=== PATIENT | female | born 1960 | race Caucasian/White ===

== ENCOUNTER 2017-03-25 16:29 | Emergency (ER) | payer OTHER ==
[~2017-03-25] VITALS: Ht 167.6 cm; Wt 83.0 kg
--- OUTSIDE RECORDS SUMMARY | ~2017-03-25 | XMS ---
Demographics + + + | Address | [address] | | | [address] | | | [place] [address] | + + + | Preferred Language | Unknown | + + + | Marital Status | Unknown | + + + | Yazidi Affiliation | Unknown | + + + | Race | Unknown | + + + | Ethnic Group | Unknown | + + + Author + + + | Author | [facility] | + + + | Organization | [facility] | + + + | Address | [address] | | | [place] [address] | + + + | Phone | | + + + Care Team Providers + + + + | Care Accounting Professor Name | Role | Phone | + + + + Unavailable | Unavailable | + + + + PROBLEMS + + + + + + + + | Type | Condition | ICD9-CM | [id number] | Onset | Condition | SNOMED | | | | Code | Code | Dates | Status | Code | + + + + + + + + | Problem | Hypertensi | | I10 | | Active | [id number] | | | on | | | | | | + + + + + + + + | Problem | History of | Z86.39 | | | Active | | | | vitamin D | | | | | | | | | | | | | | | | deficiency | | | | | | + + + + + + + + | Problem | Hot | N95.1 | | | Active | 44904962 | | | flashes | | | | | | | | due to | | | | | | | | menopause | | | | | | + + + + + + + + | Assessment | Weight | | R63.5 | 10 Apr, | Active | 9796812 | | | gain | | | 2017 | | | + + + + + + + + | Assessment | Depression | Z13.89 | | 10 Apr, | Active | [id number] | | | screen | | | 2016 | | | + + + + + + + + | Assessment | Encounter | Z13.9 | | 10 Apr, | Active | 69356350 | | | for | | | 2016 | | | | | screening | | | | | | + + + + + + + + | Problem | Asthma | | J45.909 | | Active | 779591033 | + + + + + + + + | Problem | Unspecifie | J45.909 | | | Active | 31168848 | | | d asthma, | | | | | | | | uncomplica | | | | | | | | genet | | | | | | + + + + + + + + | Problem | Dysuria | | R30.0 | | Active | 72732268 | + + + + + + + + | Problem | History of | Z86.69 | | | Active | | | | | | | | | | | | pseudoseiz | | | | | | | | ure | | | | | | + + + + + + + + | Problem | Fatigue | | R53.83 | | Active | 41052944 | + + + + + + + + | Problem | Hypoglycem | E16.1 | | | Active | 358676 | | | ic | | | | | | | | reaction | | | | | | + + + + + + + + | Problem | Bloating | R14.0 | | | Active | 58668827 | + + + + + + + + ALLERGIES + + + + +--------+ | Substance | Reaction | Event Type | Date | Status | + + + + +--------+ | Amoxicillin | rash | Drug Allergy | Nov, | Active | + + + + +--------+ | Valium | hallucinates | Drug Allergy | Nov, | Active | + + + + +--------+ | Morphine | hallucinates | Drug Allergy | Nov, | Active | | Sulfate | | | | | + + + + +--------+ | Macrobid | shortness of | Drug Allergy | 10 Nov, 2016 | Active | | | breath | | | | + + + + +--------+ SOCIAL HISTORY No smoking Hx information available PLAN OF CARE VITAL SIGNS + + + + | Height | 66.5 in | 2016-11-28 | + + + + | Weight | 191.8 lbs | 2016-11-28 | + + + + | BMI | 30.49 kg/m2 | 2016-11-28 | + + + + | Temperature | 97.7 degrees Fahrenheit | 2016-11-28 | + + + + | Heart Rate | 94 /min | 2016-11-28 | + + + + | Blood pressure systolic | 148 mm Hg | 2016-11-28 | + + + + | Blood pressure diastolic | 84 mm Hg | 2016-11-28 | + + + + MEDICATIONS + + + + + + + +--------+ | Medicati | Instruct | Dosage | Frequenc | Start | End Date | Duration | Status | | on | ions | | y | Date | | | | + + + + + + + +--------+ | Ergocalc | Orally | 1 | | | 9 Vincent, | 60 days | Active | | iferol | Take one | capsule | | | 2016 | | | | [address]30 | pill | | | | | | | | UNIT | every 7 | | | | | | | | | days x 8 | | | | | | | | | weeks | | | | | | | + + + + + + + +--------+ | Lisinopr | Orally | 1 tablet | 24h | | | 90 days | Active | | il 10 MG | Once a | | | | | | | | | day | | | | | | | + + + + + + + +--------+ | Albutero | Inhalati | 2 puffs | 4h | 02 Sep, | | 30 | Active | | l | on every | as | | 2013 | | day(s) | | | Sulfate | 4 hrs | needed | | | | | | | HFA 108 | | for | | | | | | | (90 | | wheezing | | | | | | | Base) | | or | | | | | | | MCG/ACT | | shortnes | | | | | | | | | s of | | | | | | | | | breath | | | | | | + + + + + + + +--------+ RESULTS No Results PROCEDURES + + + + + | Procedure | Date Ordered | Related Diagnosis | Body Site | + + + + + | Est Level III | November 28, 2016 | | | | Intermediate | | | | + + + + + IMMUNIZATIONS No Known Immunizations"
[~2017-03-25 16:29] MED LIST: ACETAMINOPHEN-1 EAC1 PO; ATIVAN1 MG PO; CEFDINIR300 MG PO; CELEXA20 MG PO; CEPHALEXIN500 MG PO; CITALOPRAM HBR10 MG PO; DRISDOL50000 UNIT PO; ESTRADIOL1 EAC8 TD; IBUPROFEN200 M1 PO; IBUPROFEN800 MG PO; LISINOPRIL10 MG PO; MOTRIN IB200 MG PO; NITROFURANTOIN100 M1 PO; NORCO 5-325 TA1 EACH PO; TYLENOL WITH C1 EACH PO; VENTOLIN HFA18 GM INH; ZEBUTAL 50-3251 EACH PO; ZITHROMAX250 MG PO
== END 2017-03-25 16:54 | disposition home or self-care (01) ==
LOC: ED 16:29
DX: Z00.8 Encounter for other general examination (principal)

== ENCOUNTER 2017-05-11 18:39 | Emergency (ER) | payer OTHER ==
[~2017-05-11] VITALS: Ht 167.6 cm; Wt 83.9 kg
--- OUTSIDE RECORDS SUMMARY | ~2017-05-11 | XMS ---
Demographics + + + | Address | [address] | | | [address] | | | [place] [address] | + + + | Preferred Language | Unknown | + + + | Marital Status | Unknown | + + + | Methodist Affiliation | Unknown | + + + | Race | Unknown | + + + | Ethnic Group | Unknown | + + + Author + + + | Author | [facility] | + + + | Organization | [facility] | + + + | Address | [address] | | | [place] [address] | + + + | Phone | | + + + Care Team Providers + + + + | Care Mounter Automatic Name | Role | Phone | + + + + Unavailable | Unavailable | + + + + PROBLEMS +---------+ + + +--------+ + + | Type | Condition | ICD9-CM | [id number] | Onset | Condition | SNOMED | [...] | E16.1 | | | Active | 180543 | | | ic | | | | | | | | reaction | | | | | | +---------+ + + +--------+ + + | Problem | Bloating | R14.0 | | | Active | 75348678 | +---------+ + + +--------+ + + | Problem | STD | Z20.2 | | | Active | 630825957 | | | exposure | | | | | | +---------+ + + +--------+ + + | Problem | Warts, | A63.0 | | | Active | 267151147 | | | genital | | | | | | +---------+ + + +--------+ + + | Problem | Unspecifie | J45.909 | | | Active | 46888409 | | | d asthma, | | | | | | | | uncomplica | | | | | | | | genet | | | | | | +---------+ + + +--------+ + + | Problem | Dysuria | | R30.0 | | Active | 99867075 | +---------+ + + +--------+ + + | Problem | Fall from | W18.30XA | | | Active | | | | ground | | | | | | | | level | | | | | | +---------+ + + +--------+ + + | Problem | Left ankle | | M25.572 | | Active | 846056709 | | | pain | | | | | | +---------+ + + +--------+ + + | Problem | Hypertensi | | I10 | | Active | 48005464 | | | on | | | | | | +---------+ + + +--------+ + + | Problem | Hot | N95.1 | | | Active | 62281919 | | | flashes | | | [...] | | J45.909 | | Active | 886086004 | +---------+ + + +--------+ + + | Problem | Fatigue | | R53.83 | | Active | 43104756 | +---------+ + + +--------+ + + ALLERGIES Unknown Allergies SOCIAL HISTORY No smoking Hx information available PLAN OF CARE VITAL SIGNS MEDICATIONS + + + + + + + +--------+ | Medicati | Instruct | Dosage | Frequenc | Start | End Date | Duration | Status | | on | ions | | y | Date | | | | + + + + + + + +--------+ | Metronid | Orally | 1 tablet | 12h | 15 Mar, | Mar, | 7 days | Active | | azole | Twice a | | | 2016 | 2016 | | | | 500 mg | day | | | | | | | + + + + + + + +--------+ RESULTS No Results PROCEDURES No Known procedures IMMUNIZATIONS No Known Immunizations"
--- OUTSIDE RECORDS SUMMARY | ~2017-05-11 | XMS ---
Demographics + + + | Address | [address] | | | [address] | | | [place] [address] | + + + | Preferred Language | Unknown | + + + | Marital Status | Unknown | + + + | Protestant Affiliation | Unknown | + + + | Race | Unknown | + + + | Ethnic Group | Unknown | + + + Author + + + | Author | [facility] | + + + | Organization | [facility] | + + + | Address | [address] | | | [place] [address] | + + + | Phone | | + + + Care Team Providers + + + + | Care Paster Hat Lining Name | Role | Phone | + + + + Unavailable | Unavailable | + + + + PROBLEMS +---------+ + + +--------+ + + | Type | Condition | ICD9-CM | [id number] | Onset | Condition | SNOMED | [...] | | R53.83 | | Active | 84061465 | +---------+ + + +--------+ + + | Problem | Asthma | | J45.909 | | Active | 154250010 | +---------+ + + +--------+ + + | Problem | Hypertensi | | I10 | | Active | 36305767 | | | on | | | | | | +---------+ + + +--------+ + + | Problem | Hot | N95.1 | | | Active | 98294423 | | | flashes | | | [...] | | M25.572 | | Active | 608220694 | | | pain | | | | | | +---------+ + + +--------+ + + | Problem | Hypoglycem | E16.1 | | | Active | 869219 | | | ic | | | | | | | | reaction | | | | | | +---------+ + + +--------+ + + | Problem | Bloating | R14.0 | | | Active | 80590376 | +---------+ + + +--------+ + + | Problem | Unspecifie | J45.909 | | | Active | 16075777 | | | d asthma, | | | | | | | | uncomplica | | | | | | | | genet | | | | | | +---------+ + + +--------+ + + | Problem | Dysuria | | R30.0 | | Active | 62099768 | +---------+ + + +--------+ + + ALLERGIES + + + + +--------+ | Substance | Reaction | Event Type | Date | Status | + + + + +--------+ | Amoxicillin | rash | Drug Allergy | Mar, | Active | + + + + +--------+ | Valium | hallucinates | Drug Allergy | Mar, | Active | + + + + +--------+ | Morphine | hallucinates | Drug Allergy | Mar, | Active | | Sulfate | | | | | + + + + +--------+ | Macrobid | shortness of | Drug Allergy | Mar, | Active | | | breath | | | | + + + + +--------+ SOCIAL HISTORY No smoking Hx information available PLAN OF CARE + +---------+ | Activity | Details | + +---------+ +---+ | | +---+ + + + | Follow Up | 1 Week, 2 Weeks Reason:null | + + + | Pending Test | XRay Ankle left | + + + VITAL SIGNS + + + + | Height | 66.5 in | 2017-03-25 | + + + + | Weight | 186 lbs | 2017-03-25 | + + + + | BMI | 29.57 kg/m2 | 2017-03-25 | + + + + | Temperature | 97.6 degrees Fahrenheit | 2017-03-25 | + + + + | Heart Rate | 79 /min | 2017-03-25 | + + + + | Blood pressure systolic | 146 mm Hg | 2017-03-25 | + + + + | Blood pressure diastolic | 99 mm Hg | 2017-03-25 | + + + + MEDICATIONS + [...] | on every | as | | 2014 | | day(s) | | | Sulfate [...] + + | Est Level III | Mar 25, 2017 | | | | Intermediate | | | | + + + + + IMMUNIZATIONS No Known Immunizations"
--- OUTSIDE RECORDS SUMMARY | ~2017-05-11 | XMS ---
Demographics + + + | Address | [address] | | | [address] | | | [place] [address] | + + + | Preferred Language | Unknown | + + + | Marital Status | Unknown | + + + | Bahai Affiliation | Unknown | + + + | Race | Unknown | + + + | Ethnic Group | Unknown | + + + Author + + + | Author | [facility] | + + + | Organization | [facility] | + + + | Address | [address] | | | [place] [address] | + + + | Phone | | + + + Care Team Providers + + + + | Care Fuel Cell Test Engineer Name | Role | Phone | + + + + Unavailable | Unavailable | + + + + PROBLEMS +---------+ + + +--------+ + + | Type | Condition | ICD9-CM | YZA30-WR | Onset | Condition | SNOMED | [...] | | R53.83 | | Active | 94282141 | +---------+ + + +--------+ + + | Problem | Asthma | | J45.909 | | Active | 138912617 | +---------+ + + +--------+ + + | Problem | Hypertensi | | I10 | | Active | 91803894 | | | on | | | | | | +---------+ + + +--------+ + + | Problem | Hot | N95.1 | | | Active | 86720882 | | | flashes | | | [...] | | M25.572 | | Active | 004776475 | | | pain | | | | | | +---------+ + + +--------+ + + | Problem | Hypoglycem | E16.1 | | | Active | 425613 | | | ic | | | | | | | | reaction | | | | | | +---------+ + + +--------+ + + | Problem | Bloating | R14.0 | | | Active | 58836845 | +---------+ + + +--------+ + + | Problem | Unspecifie | J45.909 | | | Active | 07603733 | | | d asthma, | | | | | | | | uncomplica | | | | | | | | genet | | | | | | +---------+ + + +--------+ + + | Problem | Dysuria | | R30.0 | | Active | 05172876 | +---------+ + + +--------+ + + [...]
--- OUTSIDE RECORDS SUMMARY | ~2017-05-11 | XMS ---
Demographics + + + | Address | [address] | | | [address] | | | [place] [address] | + + + | Preferred Language [...] + + + | Organization | [facility] | + + + | Address | [address] | | | [place] [address] | + + + | Phone | | + + + Care Team Providers + + + + | Care Aquaculture Program Director Name | Role | Phone | + + + + Unavailable | Unavailable | + + + + PROBLEMS +---------+ + + +--------+ + + | Type | Condition | ICD9-CM | SMI69-[id number] | Onset | Condition | SNOMED | [...] | E16.1 | | | Active | 055661 | | | ic | | | | | | | | reaction | | | | | | +---------+ + + +--------+ + + | Problem | Bloating | R14.0 | | | Active | 69915427 | +---------+ + + +--------+ + + | Problem | STD | Z20.2 | | | Active | 021869734 | | | exposure | | | | | | +---------+ + + +--------+ + + | Problem | Warts, | A63.0 | | | Active | 978806340 | | | genital | | | | | | +---------+ + + +--------+ + + | Problem | Unspecifie | J45.909 | | | Active | 57350563 | | | d asthma, | | | | | | | | uncomplica | | | | | | | | genet | | | | | | +---------+ + + +--------+ + + | Problem | Dysuria | | R30.0 | | Active | 22220701 | +---------+ + + +--------+ + + | Problem | Fall from | W18.30XA | | | Active | | | | ground | | | | | | | | level | | | | | | +---------+ + + +--------+ + + | Problem | Left ankle | | M25.572 | | Active | 960547411 | | | pain | | | | | | +---------+ + + +--------+ + + | Problem | Hypertensi | | I10 | | Active | 84316081 | | | on | | | | | | +---------+ + + +--------+ + + | Problem | Hot | N95.1 | | | Active | 11817232 | | | flashes | | | [...] | | J45.909 | | Active | 488537718 | +---------+ + + +--------+ + + | Problem | Fatigue | | R53.83 | | Active | 87096058 | +---------+ + + +--------+ + + [...] + + + | Follow Up | 2 Weeks Reason:null | + + + | Pending Test | HSV Culture and Typing | + + + | Pending Test | Aerobe ID + Suscept | + + + | Pending Test | HPV, DNA | + + + | Pending Test | AFFIRM DNA Panel | + + + VITAL SIGNS + + + + | Height | 66.5 in | 2017-04-03 | + + + + | Weight | 187.2 lbs | 2017-04-03 | + + + + | BMI | 29.76 kg/m2 | 2017-04-03 | + + + + | Temperature | 97.1 degrees Fahrenheit | 2017-04-03 | + + + + | Heart Rate | 99 /min | 2017-04-03 | + + + + | Blood pressure systolic | 153 mm Hg | 2017-04-03 | + + + + | Blood pressure diastolic | 97 mm Hg | 2017-04-03 | + + + + MEDICATIONS + + + + + + + +--------+ | Medicati | Instruct | Dosage | Frequenc | Start | End Date | Duration | Status | | on | ions | | y | Date | | | | + + + + + + + +--------+ | Podofilo | External | 1 | | Mar, | 17 Mar, | 3 days | Active | | x 0.5 % | ly Twice | applicat | | 2016 | 2016 | | | | | a day x | ion to | | | | | | | | 3 days, | affected | | | | | | | | wait 4 | area | | | | | | | | days | | | | | | | | | repeat | | | | | | | | | as | | | | | | | | | needed. | | | | | | | [...] | | | | MCG/ACT | | domo | | | | | | | [...] + + + + | Est Level IV | Apr 03, 2017 | | | | Extended | | | | + + + + + IMMUNIZATIONS No Known Immunizations"
--- OUTSIDE RECORDS SUMMARY | ~2017-05-11 | XMS ---
Demographics + + + | Address | [address] | | | [address] | | | [place] [address] | + + + | Preferred Language | Unknown | + + + | Marital Status | Unknown | + + + | Roman Catholic Affiliation | Unknown | + + + | Race | Unknown | + + + | Ethnic Group | Unknown | + + + Author + + + | Author | [facility] | + + + | Organization | [facility] | + + + | Address | [address] | | | [place] [address] | + + + | Phone | | + + + Care Team Providers + + + + | Care Director Student Union Name | Role | Phone | + + + + Unavailable | Unavailable | + + + + PROBLEMS +---------+ + + +--------+ + + | Type | Condition | ICD9-CM | QBV74-IC | Onset | Condition | SNOMED | | | | Code | Code | Dates | Status | Code | +---------+ + + +--------+ + + | Problem | Fatigue | | R53.83 | | Active | 44955590 | +---------+ + + +--------+ + + | Problem | Bloating | R14.0 | | | Active | 22095556 | +---------+ + + +--------+ + + | Problem | History of | Z86.69 | | | Active | | | | | | | | | | | | pseudoseiz | | | | | | | | ure | | | | | | +---------+ + + +--------+ + + | Problem | Asthma | | J45.909 | | Active | 071003960 | +---------+ + + +--------+ + + | Problem | Hypertensi | | I10 | | Active | 31545343 | | | on | | | | | | +---------+ + + +--------+ + + | Problem | Hot | N95.1 | | | Active | 91239384 | | | flashes | | | [...] | | M25.572 | | Active | 679983030 | | | pain | | | | | | +---------+ + + +--------+ + + | Problem | Dysuria | | R30.0 | | Active | 49874269 | +---------+ + + +--------+ + + | Problem | Hypoglycem | E16.1 | | | Active | 482368 | | | ic | | | | | | | | reaction | | | | | | +---------+ + + +--------+ + + | Problem | Left ankle | S99.912A | | | Active | | | | injury | | | | | | +---------+ + + +--------+ + + | Problem | Unspecifie | J45.909 | | | Active | 25004067 | | | d asthma, | | | | | | | | uncomplica | | | | | | | | geent | | | | | | +---------+ [...] 2 Weeks Reason:null | + + + VITAL SIGNS + [...] Reference Range | + +--------+------+ + | XRay Ankle left | | | | + +--------+------+ + PROCEDURES + + + + + | Procedure | Date Ordered | Related Diagnosis | Body Site | + + + + + | Est Level III | Mar 25, 2017 | | | | Intermediate | | | | + + + + + IMMUNIZATIONS No Known Immunizations"
--- OUTSIDE RECORDS SUMMARY | ~2017-05-11 | XMS ---
Demographics + + + | Address | [address] | | | [address] | | | [place] [address] | + + + | Preferred Language | Unknown | + + + | Marital Status | Unknown | + + + | Rastafari Affiliation | Unknown | + + + | Race | Unknown | + + + | Ethnic Group | Unknown | + + + Author + + + | Author | [facility] | + + + | Organization | [facility] | + + + | Address | [address] | | | [place] [address] | + + + | Phone | | + + + Care Team Providers + + + + | Care Hospital Chaplain Name | Role | Phone | + + + + Unavailable | Unavailable | + + + + PROBLEMS +---------+ + + +--------+ + + | Type | Condition | ICD9-CM | COQ83-[id number] | Onset | Condition | SNOMED | | | | Code | Code | Dates | Status | Code | +---------+ + + +--------+ + + | Problem | Fatigue | | R53.83 | | Active | 97874693 | +---------+ + + +--------+ + + | Problem | Bloating | R14.0 | | | Active | 64780400 | +---------+ + + +--------+ + + | Problem | History of | Z86.69 | | | Active | | | | | | | | | | | | pseudoseiz | | | | | | | | ure | | | | | | +---------+ + + +--------+ + + | Problem | Asthma | | J45.909 | | Active | 925575402 | +---------+ + + +--------+ + + | Problem | Hypertensi | | I10 | | Active | 72952635 | | | on | | | | | | +---------+ + + +--------+ + + | Problem | Hot | N95.1 | | | Active | 79154902 | | | flashes | | | [...] | | M25.572 | | Active | 160736204 | | | pain | | | | | | +---------+ + + +--------+ + + | Problem | Dysuria | | R30.0 | | Active | 53875323 | +---------+ + + +--------+ + + | Problem | Hypoglycem | E16.1 | | | Active | 425280 | | | ic | | | [...] | J45.909 | | | Active | 01773603 | | | d asthma, | | [...] | 2 puffs | 4h | 02 Apr, | | 30 | Active | | [...]
--- OUTSIDE RECORDS SUMMARY | ~2017-05-11 | XMS ---
Demographics + + + | Address | [address] | | | [address] | | | [place] [address] | + + + | Preferred Language | Unknown | + + + | Marital Status | Unknown | + + + | Church Affiliation | Unknown | + + + | Race | Unknown | + + + | Ethnic Group | Unknown | + + + Author + + + | Author | [facility] | + + + | Organization | [facility] | + + + | Address | [address] | | | [place] [address] | + + + | Phone | | + + + Care Team Providers + + + + | Care Office Equipment Technician Name | Role | Phone | + + + + Unavailable | Unavailable | + + + + PROBLEMS +---------+ + + +--------+ + + | Type | Condition | ICD9-CM | NEH00-OQ | Onset | Condition | SNOMED | [...] | E16.1 | | | Active | 708751 | | | ic | | | | | | | | reaction | | | | | | +---------+ + + +--------+ + + | Problem | Bloating | R14.0 | | | Active | 01660977 | +---------+ + + +--------+ + + | Problem | STD | Z20.2 | | | Active | 900000628 | | | exposure | | | | | | +---------+ + + +--------+ + + | Problem | Warts, | A63.0 | | | Active | 605115010 | | | genital | | | | | | +---------+ + + +--------+ + + | Problem | Unspecifie | J45.909 | | | Active | 96207285 | | | d asthma, | | | | | | | | uncomplica | | | | | | | | genet | | | | | | +---------+ + + +--------+ + + | Problem | Dysuria | | R30.0 | | Active | 53958080 | +---------+ + + +--------+ + + | Problem | Fall from | W18.30XA | | | Active | | | | ground | | | | | | | | level | | | | | | +---------+ + + +--------+ + + | Problem | Left ankle | | M25.572 | | Active | 182289033 | | | pain | | | | | | +---------+ + + +--------+ + + | Problem | Hypertensi | | I10 | | Active | 69951468 | | | on | | | | | | +---------+ + + +--------+ + + | Problem | Hot | N95.1 | | | Active | 17735558 | | | flashes | | | [...] | | J45.909 | | Active | 543193141 | +---------+ + + +--------+ + + | Problem | Fatigue | | R53.83 | | Active | 72019112 | +---------+ + + +--------+ + + ALLERGIES Unknown Allergies SOCIAL HISTORY No smoking Hx information available PLAN OF CARE VITAL SIGNS MEDICATIONS Unknown Medications RESULTS No Results PROCEDURES No Known procedures IMMUNIZATIONS No Known Immunizations"
--- OUTSIDE RECORDS SUMMARY | ~2017-05-11 | XMS ---
Demographics + + + | Address | [address] | | | [address] | | | [place] [address] | + + + | Preferred Language | Unknown | + + + | Marital Status | Unknown | + + + | Zoroastrianism Affiliation | Unknown | + + + | Race | Unknown | + + + | Ethnic Group | Unknown | + + + Author + + + | Author | [facility] | + + + | Organization | [facility] | + + + | Address | [address] | | | [place] [address] | + + + | Phone | [phone] | + + + Care Team Providers + + + + | Care Health And Wellness Coordinator Name | Role | Phone | + + + + Unavailable | Unavailable | + + + + PROBLEMS +---------+ + + +--------+ + + | Type | Condition | ICD9-CM | SNR70-KD | Onset | Condition | SNOMED | [...] | E16.1 | | | Active | 454333 | | | ic | | | | | | | | reaction | | | | | | +---------+ + + +--------+ + + | Problem | Bloating | R14.0 | | | Active | 47235276 | +---------+ + + +--------+ + + | Problem | Epidermoid | L72.0 | | | Active | 594387467 | | | cyst | | | | | | +---------+ + + +--------+ + + | Problem | STD | Z20.2 | | | Active | 003067805 | | | exposure | | | | | | +---------+ + + +--------+ + + | Problem | Unspecifie | J45.909 | | | Active | 57701765 | | | d asthma, | | | | | | | | uncomplica | | | | | | | | genet | | | | | | +---------+ + + +--------+ + + | Problem | Dysuria | | R30.0 | | Active | 51671402 | +---------+ + + +--------+ + + | Problem | Fall from | W18.30XA | | | Active | | | | ground | | | | | | | | level | | | | | | +---------+ + + +--------+ + + | Problem | Left ankle | | M25.572 | | Active | 959713732 | | | pain | | | | | | +---------+ + + +--------+ + + | Problem | Hypertensi | | I10 | | Active | 46922330 | | | on | | | | | | +---------+ + + +--------+ + + | Problem | Hot | N95.1 | | | Active | 40117987 | | | flashes | | | [...] | | J45.909 | | Active | 708005579 | +---------+ + + +--------+ + + | Problem | Fatigue | | R53.83 | | Active | 81179378 | +---------+ + + +--------+ + + ALLERGIES + + + + +--------+ | Substance | Reaction | Event Type | Date | Status | + + + + +--------+ | Iodine | dizziness | Drug Allergy | Mar, | Active [...] + + + | Follow Up | prn Reason:null | + + + VITAL SIGNS + + + + | Height | 66.5 in | 2017-04-13 | + + + + | Weight | 188.0 lbs | 2017-04-13 | + + + + | BMI | 29.89 kg/m2 | 2017-04-13 | + + + + | Heart Rate | 82 /min | 2017-04-13 | + + + + | Blood pressure systolic | 179 mm Hg | 2017-04-13 | + + + + | Blood pressure diastolic | 94 mm Hg | 2017-04-13 | + + + + MEDICATIONS + [...] + + | Est Level III | Apr 13, 2017 | | | | Intermediate | | | | + + + + + | [facility] MED/CURRENT | Apr 13, 2017 | | | | MED MERGE | | | | + + + + + | DOC MEDS VERIFIED | Apr 13, 2017 | | | | W/PT OR RE | | | | + + + + + IMMUNIZATIONS No Known Immunizations"
== END 2017-05-11 20:11 | disposition home or self-care (01) ==
LOC: ED 18:39
DX: G40.909 Epilepsy, unspecified, not intractable, without status epilepticus (principal); J20.9 Acute bronchitis, unspecified; J45.909 Unspecified asthma, uncomplicated; I10 Essential (primary) hypertension; Z88.0 Allergy status to penicillin; Z88.8 Allergy status to other drugs, medicaments and biological substances; Z88.5 Allergy status to narcotic agent; Z79.899 Other long term (current) drug therapy
CPT/HCPCS: 71020; 99283

== ENCOUNTER → 2017-06-09 | Emergency (ER) | payer OTHER ==
[~2017-06-09] VITALS: Ht 167.6 cm; Wt 83.9 kg
[~2017-06-09] MED LIST changes: +ZOFRAN ODT4 MG PO
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
== END ==
LOC: ED 18:53
DX: G40.109 Localization-related (focal) (partial) symptomatic epilepsy and epileptic syndromes with simple partial seizures, not intractable, without status epilepticus (principal); J45.909 Unspecified asthma, uncomplicated; I10 Essential (primary) hypertension; Z88.0 Allergy status to penicillin; Z88.5 Allergy status to narcotic agent; Z88.8 Allergy status to other drugs, medicaments and biological substances; Z98.890 Other specified postprocedural states; Z79.899 Other long term (current) drug therapy
CPT/HCPCS: 80053; 99283

== ENCOUNTER 2017-06-24 15:25 | Emergency (ER) | payer OTHER ==
[~2017-06-24] VITALS: Ht 167.6 cm; Wt 82.5 kg
[~2017-06-24 15:25] MED LIST changes: -ZOFRAN ODT4 MG PO
[2017-06-24] MEDS ORDERED: ZITHROMAX250 MG PO (16:49)
== END 2017-06-24 16:59 | disposition home or self-care (01) ==
LOC: ED 15:25
DX: J32.9 Chronic sinusitis, unspecified (principal); J45.909 Unspecified asthma, uncomplicated; I10 Essential (primary) hypertension; Z88.0 Allergy status to penicillin; Z88.1 Allergy status to other antibiotic agents; Z88.5 Allergy status to narcotic agent; Z88.8 Allergy status to other drugs, medicaments and biological substances; Z79.899 Other long term (current) drug therapy
CPT/HCPCS: 99283

== ENCOUNTER 2017-08-18 16:15 | Emergency (ER) | payer OTHER ==
[~2017-08-18] VITALS: Ht 167.6 cm; Wt 82.5 kg
--- OUTSIDE RECORDS SUMMARY | 2017-08-18 16:19 | XMS | Clinical Summary ---
Demographics + + + | Address | [address] | | | [place] [address] | + + + | Home Phone | | + + + | Preferred Language | Unknown | + + + | Marital Status | Unknown | + + + | Confucianism Affiliation | Unknown | + + + | Race | Unknown | + + + | Ethnic Group | Unknown | + + + Author + + + | Author | [facility] | + + + | Organization | [facility] | + + + | Address | Unknown | + + + | Phone | Unavailable | + + + Care Team Providers + +------+ + | Care Motor Coach Supervisor Name | Role | Phone | + +------+ + PP | Unavailable | + +------+ + Source Comments ALEXANDRA is fully live on both [facility] Ambulatory and [facility] InPatient.[facility] Allergies Not on File Current Medications Not on file Active Problems Not on file Social History + +-------+ +--------+------+ | Tobacco Use | Types | Packs/Day | Years | Date | | | | | Used | | + +-------+ +--------+------+ | Never Assessed | | | | | + +-------+ +--------+------+ + + + | Sex Assigned at | Date Recorded | | | | + + + | Not on file | | + + + Plan of Treatment + + + + + | Health Maintenance | Due Date | Last Done | Comments | + + + + + | INFLUENZA VACCINE | | | | | (FLU SHOT) | 7 | | | + + + + + Results Not on filefrom Last 3 Months"
--- OUTSIDE RECORDS SUMMARY | 2017-08-18 16:19 | XMS | Clinical Summary ---
Demographics + + + | Address | [address] | | | [place] [address] | + + + | Home Phone | | + + + | Preferred Language | Unknown | + + + | Marital Status | Unknown | + + + | Mandaeism Affiliation | Unknown | + + + [...] Team Providers + +------+ + | Care Can Maker Name | Role | Phone | + +------+ + PP | Unavailable | + +------+ + Source Comments ALEXANDRA is fully live on both [facility] Ambulatory and [facility] InPatient.[facility] Allergies Not on File Current [...]
[2017-08-18] MEDS ORDERED: ZOFRAN ODT4 MG PO (18:22)
== END 2017-08-18 18:56 | disposition home or self-care (01) ==
LOC: ED 16:15
DX: J11.1 Influenza due to unidentified influenza virus with other respiratory manifestations (principal); J45.909 Unspecified asthma, uncomplicated; I10 Essential (primary) hypertension; Z88.0 Allergy status to penicillin; Z88.1 Allergy status to other antibiotic agents; Z88.5 Allergy status to narcotic agent; Z88.8 Allergy status to other drugs, medicaments and biological substances; Z79.899 Other long term (current) drug therapy
CPT/HCPCS: 36415; 71020; 80053; 85025; 87502; 94640; 96360; 99283; J7030

== ENCOUNTER 2017-08-19 20:04 | Emergency (ER) | payer OTHER ==
[~2017-08-19] VITALS: Ht 167.6 cm; Wt 82.5 kg
[~2017-08-19 20:04] MED LIST changes: +ZOFRAN ODT4 MG PO
--- OUTSIDE RECORDS SUMMARY | 2017-08-19 22:32 | XMS | Clinical Summary ---
Demographics + + + | Address | [address] | | | [place] [address] | + + + | Home Phone | | + + + | Preferred Language | Unknown | + + + | Marital Status | Unknown | + + + | Sikhism Affiliation | Unknown | + + + [...] Team Providers + +------+ + | Care Oil Derrick Operator Name | Role | Phone | + +------+ + PP | Unavailable | + +------+ + Source Comments ALEXANDRA is fully live on both [facility] Ambulatory and [facility] InPatient.[facility] Allergies Not on File Current Medications Not [...]
--- NOTE | 2017-08-20 06:44 | EKG ---
[facility] [address] [place] [place] [address] Signed Normal sinus rhythm Cannot rule out Anterior infarct (cited on or before 12-SEP-2016) Abnormal ECG When compared with ECG of 12-SEP-2016 16:01, Questionable change in initial forces of Anterior leads Confirmed by DOROTHY BLACK MD ([id number]) on 08/20/2017 6:44:17 AM Electronically Signed By: DOROTHY BLACK MD 08/20/17 0644 PATIENT NAME: FANG COLÓN Electrocardiogram DATE OF : 62 PHYSICIAN: DOROTHY BLACK MD REPORT #: [id number] REPORT IS CONFIDENTIAL AND NOT TO BE RELEASED WITHOUT AUTHORIZATION
== END 2017-08-19 23:45 | disposition home or self-care (01) ==
LOC: ED 20:04
DX: J10.1 Influenza due to other identified influenza virus with other respiratory manifestations (principal); J45.909 Unspecified asthma, uncomplicated; I10 Essential (primary) hypertension; Z88.0 Allergy status to penicillin; Z88.8 Allergy status to other drugs, medicaments and biological substances; Z88.1 Allergy status to other antibiotic agents; Z79.899 Other long term (current) drug therapy; Z88.5 Allergy status to narcotic agent
CPT/HCPCS: 80053; 84484; 85025; 93005; 93010; 96360; 99283; J7030

== ENCOUNTER 2017-11-26 14:41 | Emergency (ER) | payer OTHER ==
[~2017-11-26] VITALS: Ht 167.6 cm; Wt 82.5 kg
--- OUTSIDE RECORDS SUMMARY | ~2017-11-26 | XMS | Clinical Summary ---
Demographics + + + | Address | [address] | | | [address] | | | [place] [address] | + + + | Home Phone | | + + + | Preferred Language | Unknown | + + + | Marital Status | Single | + + + | Lutheran Affiliation | 1038 | + + + | Race | Unknown | + + + | Ethnic Group | Unknown | + + + Author + + + | Author | [facility] | | | and [place] | + + + | Organization | [facility] | | | and [place] | + + + | Address | Unknown | + + + | Phone | Unavailable | + + + Support + + +---------+ + | Name | Relationship | Address | Phone | + + +---------+ + | Ashkan Ziegler ECON | Unknown | | + + +---------+ + Care Team Providers + +------+ + | Care Arcade Games Mechanic Name | Role | Phone | + +------+ + PP | Unavailable | + +------+ + Allergies + + + +--------+ + | Active Allergy | Reactions | Severity | Noted | Comments | | | | | Date | | + + + +--------+ + | Morphine | | | | | + + + +--------+ + | Penicillins | | | | | + + + +--------+ + Current Medications + + +-------+---------+------+------+-------+ | Prescription | Sig. | Disp. | Refills | Star | End | Statu | | | | | | t | Date | s | | | | | | Date | | | + + +-------+---------+------+------+-------+ | gabapentin | Build up to 2 caps | | | 04/2 | | Activ | | (NEURONTIN) 100 mg | by mouth two times | | | 8/20 | | e | | capsule | daily | | | 11 | | | + + +-------+---------+------+------+-------+ | acetaminophen | as directed | | | 04/2 | | Activ | | (ACETAMINOPHEN EXTRA | | | | 8/20 | | e | | STRENGTH) 500 mg | | | | 11 | | | | tablet | | | | | | | + + +-------+---------+------+------+-------+ | ranitidine | Take 150 mg by mouth | | | 04/2 | | Activ | | (ZANTAC) 150 mg | 3 times daily. 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 | | + + + + + | Overview: ICD-10 Record update | + + Social History + +-------+ +--------+------+ | Tobacco [...] on file | | + + + Last Filed Vital Signs + + + + | Vital Sign | Reading | Time Taken | + + + + | Blood Pressure | 126/86 | 12/16/2010 0000 PDT | + + + + | Pulse | - | - | + + + + | Temperature | - | - | + + + + | Respiratory Rate | - | - | + + + + | Oxygen Saturation | - | - | + + + + | Inhaled Oxygen | - | - | | Concentration | | | + + + + | Weight | 83.9 kg (185 lb) | 12/16/2010 0000 PDT | + + + + | Height | 152.4 cm (5') | 07/22/2010 0000 PST | + + + + | Body Mass Index | 36.13 | 12/16/2010 0000 PDT | + + + + Plan of Treatment + + + + + | Health Maintenance | Due Date | Last Done | Comments | + + + + + | Hepatitis C | | | | | Screening | 1 | | | + + + + + | Vaccine: | | | | | Dtap/Tdap/Td (1 - | 0 | | | | Tdap) | | | | + + + + + | CERVICAL CANCER | | 08/21/2006 | | | SCREENING (PAP EVERY | 0 | | | | 3 YEARS 21-64 ) | | | | + + + + + | BREAST CANCER | | | | | SCREENING (MAMM Q2 | 1 | | | | YEARS 50-74) | | | | + + + + + | COLON CANCER | | | | | SCREENING | 1 | | | | (COLONOSCOPY EVERY | | | | | 10 YEARS 50-75) | | | | + + + + + | Vaccine: Influenza | | | | | (Season Ended) | 8 | | | + + + + + Results Not on filefrom Last 3 Months"
--- OUTSIDE RECORDS SUMMARY | ~2017-11-26 | XMS | Clinical Summary ---
Demographics + + + | Address | [address] | | | [place] [address] | + + + | Home Phone | | + + + | Preferred Language | Unknown | + + + | Marital Status | Unknown | + + + | Uatsdin Affiliation | Unknown | + + + [...] Team Providers + +------+ + | Care Dental Lab Technician Name | Role | Phone | + +------+ + PP | Unavailable | + +------+ + Source Comments ALEXANDRA is fully live on both [facility] Ambulatory and [facility] InPatient.[facility] Allergies Not on File Current [...]
--- OUTSIDE RECORDS SUMMARY | ~2017-11-26 | XMS | Clinical Summary ---
Demographics + + + | Address | [address] | | | [place] [address] | + + + | Home Phone | | + + + | Preferred Language | Unknown | + + + | Marital Status | | + + + | Catholic Affiliation | 1013 | + + + | Race | Unknown | + + + | Ethnic Group | Unknown | + + + Author + + + | Author | [facility] | + + + | Organization | [facility] | + + + | Address | Unknown | + + + | Phone | Unavailable | + + + Support + + +---------+ + | Name | Relationship | Address | Phone | + + +---------+ + | Gregory Boyer | ECON | Unknown | | + + +---------+ + Care Team Providers + +------+ + | Care Php Lamp Developer Name | Role | Phone | + [...] | | | | Screening (Pap) | 2 [...] +------+-------+ + | MEDICAID | [place] | xxxxxxxx | | | [address] | | | [place] | | | | [place] | | | [place] | | | | [address] | | | [employer] | | | | | + +--------+ [...] Self | [birth year] Home: | [address] | | | al/Fam | | 1960 | [phone] | [address] [place] | | | [address] | | | [phone] | [phone] | + +--------+ +--------+ + +
--- OUTSIDE RECORDS SUMMARY | ~2017-11-26 | XMS ---
Demographics + + + | Address | [address] | | | [address] | | | [place] [address] | + + + | Preferred Language | Unknown | + + + | Marital Status | Unknown | + + + | Congregation Affiliation | Unknown | + + + | Race | Unknown | + + + | Ethnic Group | Unknown | + + + Author + + + | Author | [facility] | + + + | Organization | [facility] | + + + | Address | [address] | | | [place] [address] | + + + | Phone | | + + + Care Team Providers + + + + | Care Needle Punch Operator Name | Role | Phone | + + + + Unavailable | Unavailable | + + + + PROBLEMS + + + + + + + + | Type | Condition | ICD9-CM | [id number] | Onset | Condition | SNOMED | | | | Code | Code | Dates | Status | Code | + + + + + + + + | Assessment | History of | Z86.69 | | 05 Apr, | Active | | | | | | | 2017 | | | | | pseudoseiz | | | | | | | | ure | | | | | | + + + + + + + + | Problem | Hypertensi | | I10 | | Active | [id number] | | | on | | | | | | + + + + + + + + | Problem | Asthma | | J45.909 | | Active | 419270963 | + + + + + + + + | Problem | Dysuria | | R30.0 | | Active | 54453793 | + + + + + + + + | Problem | Bloating | R14.0 | | | Active | 36345461 | + + + + + + [...] | N95.1 | | | Active | 94420450 | | | flashes | | | [...] | | R53.83 | | Active | 24481751 | + + + + + + [...] | shortness of | Drug Allergy | Nov, | Active | | | breath | | | | + + + + +--------+ SOCIAL HISTORY No smoking Hx information available PLAN OF CARE VITAL SIGNS + + + + | Height | 66.5 in | 2016-11-23 | + + + + | Weight | 188.2 lbs | 2016-11-23 | + + + + | BMI | 29.92 kg/m2 | 2016-11-23 | + + + + | Temperature | 98.4 degrees Fahrenheit | 2016-11-23 | + + + + | Heart Rate | 85 /min | 2016-11-23 | + + + + | Blood pressure systolic | 143 mm Hg | 2016-11-23 | + + + + | Blood pressure diastolic | 91 mm Hg | 2016-11-23 | + + + + MEDICATIONS + [...] + + + + + +--------+ RESULTS + +--------+------+ + | Name | Result | Date | Reference Range | + +--------+------+ + | Urinalysis, Dip | | | | | (IH) | | | | + +--------+------+ + | Specific [place] | 1.020 | | | + +--------+------+ + | pH | 5 | | | + +--------+------+ + | Leukocytes | neg | | | + +--------+------+ + | Nitrite, Urine | neg | | | + +--------+------+ + | Protein | neg | | | + +--------+------+ + | Glucose | norm | | | + +--------+------+ + | Ketones | neg | | | + +--------+------+ + | Urobilingen, | norm | | | | Semi-Qn | | | | + +--------+------+ + | Bilirubin | neg | | | + +--------+------+ + | Blood Hemoglobin | 50 | | | | (BLD) | | | | + +--------+------+ + PROCEDURES + + + + + | Procedure | Date Ordered | Related Diagnosis | Body Site | + + + + + | LAB URINALYSIS (DIP | November 23, 2016 | | | | STICK ONLY | | | | + + + + + | Est Level III | November 23, 2016 | | | | Intermediate | | | | + + + + + IMMUNIZATIONS No Known Immunizations"
--- OUTSIDE RECORDS SUMMARY | ~2017-11-26 | XMS | Clinical Summary ---
Demographics + + + | Address | [address] | | | [address] | | | [place] [address] | + + + | Home Phone | | + + + | Preferred Language | Unknown | + + + | Marital Status | Single | + + + | Temple Affiliation | 1038 | + + + | Race | Unknown | + + + | Ethnic Group | Unknown | + + + Author + + + | Author | [facility] | | | and [place] | + + + | Organization | [facility] | | | and [place] [...] Team Providers + +------+ + | Care Label Machine Operator Name | Role | Phone | [...] + + + + | Overview: RENETTAU [id number] Decision | + + + + + [...]
--- OUTSIDE RECORDS SUMMARY | ~2017-11-26 | XMS | Clinical Summary ---
Demographics + + + | Address | [address] | | | [place] [address] | + + + | Home Phone | | + + + | Preferred Language | Unknown | + + + | Marital Status | | + + + | Cheondoism Affiliation | 1013 | + + + | Race | Unknown | + + + | Ethnic Group | Unknown | + + + Author + + + | Author | [facility] | + + + | Organization | [facility] | + + + | Address | Unknown | + + + | Phone | Unavailable | + + + Support + + +---------+ + | Name | Relationship | Address | Phone | + + +---------+ + | Gregory Boyer | ECON | Unknown | | + + +---------+ + Care Team Providers + +------+ + | Care Sanitor Name | Role | Phone | + [...] | | [place] | | | | [address] | | | GENERAL MAINTENANCE TECHNICIAN | | | | | + +--------+ [...] Self | [birth year] | Home: | [address] | | | al/Fam | | 1960 | [phone] | [address] [place] | | | [address] | | | [phone] | [phone] | + +--------+ +--------+ + +
--- OUTSIDE RECORDS SUMMARY | ~2017-11-26 | XMS ---
Demographics + + + | Address | [address] | | | [address] | | | [place] [address] | + + + | Preferred Language | Unknown | + + + | Marital Status | Unknown | + + + | Mormon Affiliation | Unknown | + + + | Race | Unknown | + + + | Ethnic Group | Unknown | + + + Author + + + | Author | [facility] | + + + | Organization | [facility] | + + + | Address | [address] | | | [place] [address] | + + + | Phone | | + + + Care Team Providers + + + + | Care Gas Turbine Powerplant Mechanic Name | Role | Phone | + + + + Unavailable | Unavailable | + + + + PROBLEMS +---------+ + + +--------+ + + | Type | Condition | ICD9-CM | [id number] | Onset | Condition | SNOMED | | | | Code | Code | Dates | Status | Code | +---------+ + + +--------+ + + | Problem | Asthma | | J45.909 | | Active | [id number] | +---------+ + + +--------+ + + | Problem | Hot | N95.1 | | | Active | 66481708 | | | flashes | | | | | | | | due to | | | | | | | | menopause | | | | | | +---------+ + + +--------+ + + | Problem | Hypertensi | | I10 | | Active | 18433742 | | | on | | | | | | +---------+ + + +--------+ + + | Problem | Unspecifie | J45.909 | | | Active | 44638619 | | | d asthma, | | | | | | | | uncomplica | | | | | | | | genet | | | | | | +---------+ + + +--------+ + + | Problem | Dysuria | | R30.0 | | Active | 95416213 | +---------+ + + +--------+ + + | Problem | Fatigue | | R53.83 | | Active | 35512531 | +---------+ + + +--------+ + + [...] | R14.0 | | | Active | 36796008 | +---------+ + + +--------+ + + [...]
--- OUTSIDE RECORDS SUMMARY | ~2017-11-26 | XMS ---
Demographics + + + | Address | [address] | | | [address] | | | [place] [address] | + + + | Preferred Language | Unknown | + + + | Marital Status | Unknown | + + + | Christian Affiliation | Unknown | + + + | Race | Unknown | + + + | Ethnic Group | Unknown | + + + Author + + + | Author | [facility] | + + + | Organization | [facility] | + + + | Address | [address] | | | [place] [address] | + + + | Phone | | + + + Care Team Providers + + + + | Care University Lecturer Name | Role | Phone | + + + + Unavailable | Unavailable | + + + + PROBLEMS +---------+ + + +--------+ + + | Type | Condition | ICD9-CM | [id number] | Onset | Condition | SNOMED | | | | Code | Code | Dates | Status | Code | +---------+ + + +--------+ + + | Problem | Asthma | | J45.909 | | Active | 219583331 | +---------+ + + +--------+ + + | Problem | Hot | N95.1 | | | Active | 09542006 | | | flashes | | | | | | | | due to | | | | | | | | menopause | | | | | | +---------+ + + +--------+ + + | Problem | Hypertensi | | I10 | | Active | 65329597 | | | on | | | | | | +---------+ + + +--------+ + + | Problem | Unspecifie | J45.909 | | | Active | 00889765 | | | d asthma, | | | | | | | | uncomplica | | | | | | | | genet | | | | | | +---------+ + + +--------+ + + | Problem | Dysuria | | R30.0 | | Active | 60147422 | +---------+ + + +--------+ + + | Problem | Fatigue | | R53.83 | | Active | 23697868 | +---------+ + + +--------+ + + [...] | R14.0 | | | Active | 79485538 | +---------+ + + +--------+ + + [...] | | +---+ + + + | Pending Test | TSH | + + + | Pending Test | Comp. Metabolic Panel (14) | + + + | Pending Test | Lipid Panel | + + + | Pending Test | Hemoglobin A1C Panel | + + + | Pending Test | Urinalysis | + + + | Pending Test | cbc | + + + | Pending Test | Vitamin D | + + + | | ,Reason: | + + + VITAL SIGNS MEDICATIONS Unknown Medications RESULTS No Results PROCEDURES No Known procedures IMMUNIZATIONS No Known Immunizations"
--- OUTSIDE RECORDS SUMMARY | ~2017-11-26 | XMS | Clinical Summary ---
Demographics + + + | Address | [address] | | | [place] [address] | + + + | Home Phone [...] Team Providers + +------+ + | Care Grants And Contracts Assistant Name | Role | Phone | + +------+ + PP | Unavailable | + +------+ + Source Comments ALEXANDRA is fully live on both [facility] Ambulatory and [facility] InPatient.[facility] Allergies Not on File Current [...]
== END 2017-11-26 17:15 | disposition home or self-care (01) ==
LOC: ED 14:41
DX: R56.9 Unspecified convulsions (principal); I10 Essential (primary) hypertension; Z88.0 Allergy status to penicillin; Z88.8 Allergy status to other drugs, medicaments and biological substances; Z88.5 Allergy status to narcotic agent; Z79.899 Other long term (current) drug therapy
CPT/HCPCS: 80053; 85025; 99283

== ENCOUNTER 2018-03-28 11:06 | Emergency (ER) | payer OTHER ==
[~2018-03-28] VITALS: Ht 167.6 cm; Wt 84.8 kg
[2018-03-28] MEDS ORDERED: HYDROCHLOROTHIA25 MG PO (11:20)
== END 2018-03-28 14:14 | disposition home or self-care (01) ==
LOC: ED 11:06
DX: R55 Syncope and collapse (principal); R56.9 Unspecified convulsions; J45.909 Unspecified asthma, uncomplicated; I10 Essential (primary) hypertension; Z88.0 Allergy status to penicillin; Z88.8 Allergy status to other drugs, medicaments and biological substances; Z88.5 Allergy status to narcotic agent; Z79.899 Other long term (current) drug therapy
CPT/HCPCS: 36415; 80053; 83036; 84443; 84550; 85025; 99284

== ENCOUNTER 2018-04-08 13:43 | Emergency (ER) | payer OTHER ==
[~2018-04-08] VITALS: Ht 167.6 cm; Wt 84.8 kg
--- OUTSIDE RECORDS SUMMARY | ~2018-04-08 | XMS | Clinical Summary ---
Demographics + + + | Address | [address] | | | [place] [address] | + + + | Home Phone | | + + + | Preferred Language | Unknown | + + + | Marital Status | Unknown | + + + | Mormonism Affiliation | Unknown | + + + [...] Team Providers + +------+ + | Care Closing Coordinator Name | Role | Phone | + +------+ + PP | Unavailable | + +------+ + Source Comments ALEXANDRA is fully live on both [facility] Ambulatory and [facility] InPatient.[facility] [...] | | | | (FLU SHOT) | 8 | | | + + + + + Results Not on filefrom Last 3 Months"
--- OUTSIDE RECORDS SUMMARY | ~2018-04-08 | XMS | Clinical Summary ---
Demographics + + + | Address | [address] | | | [address] | | | [place] [address] | + + + | Home Phone | | + + + | Preferred Language | Unknown | + + + | Marital Status | Single | + + + | Buddhism Affiliation | 1038 | + + + | Race | Unknown | + + + | Ethnic Group | Unknown | + + + Author + + + | Author | [facility] | | | and [place] | + + + | Organization | [facility] | | | and [place] | [...] Team Providers + +------+ + | Care Log Preparer Name | Role | Phone | + [...] + + + + | Overview: RENETTAU [id number] Decision | + + + + + [...]
--- OUTSIDE RECORDS SUMMARY | ~2018-04-08 | XMS | Clinical Summary ---
Demographics + + + | Address | [address] | | | [place] [address] | + + + | Home Phone | | + + + | Preferred Language | Unknown | + + + | Marital Status | | + + + | Rastafarian Affiliation | 1013 | + + + | Race | Unknown | + + + | Ethnic Group | Unknown | + + + Author + + + | Author | [facility] | + + + | Organization | [facility] | + + + | Address | Unknown | + + + | Phone | Unavailable | + + + Support + + +---------+ + | Name | Relationship | Address | Phone | + + +---------+ + | Gregory Boyer | ECON | Unknown | | + + +---------+ + Care Team Providers + +------+ + | Care Boot And Shoe Repairman Name | Role | Phone | + [...] +------+-------+ + | MEDICAID | [place] | [id number] | | | [address] | | | N | | | | [place] | | | [place] | | | | [phone] | | | BPM SOLUTION ARCHITECT | | | | | + +--------+ [...] Self | [birth year] | Home: | [address] | | | al/Fam | | 1960 | [phone] | [address] [place] | | | [place] | | | [phone] | [phone] | + +--------+ +--------+ + +
--- OUTSIDE RECORDS SUMMARY | ~2018-04-08 | XMS | Clinical Summary ---
Demographics + + + | Address | [address] | | | [place] [address] | + + + | Home Phone | | + + + | Preferred Language | Unknown | + + + | Marital Status | | + + + | Buddhism Affiliation | 1013 | + + + | Race | Unknown | + + + | Ethnic Group | Unknown | + + + Author + + + | Author | [facility] | + + + | Organization | [facility] | + + + | Address | Unknown | + + + | Phone | Unavailable | + + + Support + + +---------+ + | Name | Relationship | Address | Phone | + + +---------+ + | Gregory Byoer | ECON | Unknown | | + + +---------+ + Care Team Providers + +------+ + | Care Radiation Control Worker Name | Role | Phone | + [...] +------+-------+ + | MEDICAID | [place] | [id number] | | | [address] | | | N | | | | [place] | | | [place] | | | | [phone] | | | ENVIRONMENTAL CONSULTANT | | | | | + +--------+ [...] | [birth year] | Home: | [address] | | | al/Fam | | 1960 | [phone] | [address] [place] | | | [place] | | | [address] | [phone] | + +--------+ +--------+ + +
--- OUTSIDE RECORDS SUMMARY | ~2018-04-08 | XMS | Clinical Summary ---
Demographics + + + | Address | [address] | | | [address] | | | [place] [address] | + + + | Home Phone | | + + + | Preferred Language | Unknown | + + + | Marital Status | Single | + + + | Episcopalian Affiliation | 1038 | + + + | Race | Unknown | + + + | Ethnic Group | Unknown | + + + Author + + + | Author | [facility] | | | and [place] | + + + | Organization | [facility] | | | and [place] [...] Team Providers + +------+ + | Care Bolt Sorter Name | Role | Phone | + [...] + + + + | Overview: RENETTAU [id number] Decision | + + + + + [...]
--- OUTSIDE RECORDS SUMMARY | ~2018-04-08 | XMS | Clinical Summary ---
Demographics + + + | Address | [address] | | | [place] [address] | + + + | Home Phone [...] Team Providers + +------+ + | Care Presser And Shaper Knitted Goods Name | Role | Phone | + +------+ + PP | Unavailable | + +------+ + Source Comments ALEXANDRA is fully live on both [facility] and [facility] InPatient.[facility] Allergies Not on File Current Medications [...]
[~2018-04-08 13:43] MED LIST changes: +HYDROCHLOROTHIA25 MG PO
== END 2018-04-08 14:07 | disposition home or self-care (01) ==
LOC: ED 13:43
DX: Z76.0 Encounter for issue of repeat prescription (principal)

== ENCOUNTER 2018-04-10 00:57 | Emergency (ER) | payer OTHER ==
[~2018-04-10] VITALS: Ht 167.6 cm; Wt 84.8 kg
--- OUTSIDE RECORDS SUMMARY | ~2018-04-10 | XMS | Clinical Summary ---
Demographics + + + | Address | [address] | | | [address] | | | [place] [address] | + + + | Home Phone | | + + + | Preferred Language | Unknown | + + + | Marital Status | Single | + + + | Episcopalian Affiliation | 1038 | + + + | Race | Unknown | + + + | Ethnic Group | Unknown | + + + Author + + + | Author | [facility] | | | and [place] | + + + | Organization | [facility] | | | and [place] | [...] Team Providers + +------+ + | Care Fisherman Helper Name | Role | Phone | + [...] + + + + | Overview: RENETTAU [id number] Decision | + + + + + [...] | + + + + + | Cervical Cancer | | 08/21/2006 | | | Screening (Pap) | 2 | | | + + + + + | Vaccine: Influenza | | | | | (#1) | 8 | | | + + + + + Results Not on filefrom Last 3 Months"
--- OUTSIDE RECORDS SUMMARY | ~2018-04-10 | XMS | Clinical Summary ---
Demographics + + + | Address | [address] | | | [place] [address] | + + + | Home Phone | | + + + | Preferred Language | Unknown | + + + | Marital Status | | + + + | Rastafarian Affiliation | 1013 | + + + | Race | Unknown | + + + | Ethnic Group | Unknown | + + + Author + + + | Author | [facility] | + + + | Organization | [facility] | + + + | Address | Unknown | + + + | Phone | Unavailable | + + + Support + + +---------+ + | Name | Relationship | Address | Phone | + + +---------+ + | Gregory Boyer | ECON | Unknown | | + + +---------+ + Care Team Providers + +------+ + | Care State Archivist Name | Role | Phone | + +------+ + | Leightno Prado | PP | | + +------+ [...] | 6 | + + + + Family History + + +------+ + | [...] +------+-------+ + | MEDICAID | [place] | [id number] | | | [address] | | | N | | | | [place] | | | [place] | | | | [phone] | | | ALARM SIGNAL OPERATOR | | | | | + +--------+ [...] Self | [birth year] | Home: | [address] | | | al/Fam | | 1960 | [phone] | [address] [place] | | | [place] | | | [phone] | [phone] | + +--------+ +--------+ + +
--- OUTSIDE RECORDS SUMMARY | ~2018-04-10 | XMS | Clinical Summary ---
Demographics + + + | Address | [address] | | | [place] [address] | + + + | Home Phone [...] Team Providers + +------+ + | Care Business And Financial Counsel Name | Role | Phone | + +------+ + PP | Unavailable | + +------+ + Source Comments ALEXANDRA is fully live on both [facility] and [facility] InPatient.[facility] Allergies Not on File Current Medications [...]
--- OUTSIDE RECORDS SUMMARY | ~2018-04-10 | XMS | Clinical Summary ---
Demographics + + + | Address | [address] | | | [address] | | | [place] [address] | + + + | Home Phone | | + + + | Preferred Language | Unknown | + + + | Marital Status | Single | + + + | Confucianist Affiliation | 1038 | + + + | Race | Unknown | + + + | Ethnic Group | Unknown | + + + Author + + + | Author | [facility] | | | and [place] | + + + | Organization | [facility] | | | and [place] [...] Team Providers + +------+ + | Care Conference Center Manager Name | Role | Phone | + [...] + + + + | Overview: RENETTAU [id number] Decision | + + + + + [...]
--- OUTSIDE RECORDS SUMMARY | ~2018-04-10 | XMS | Clinical Summary ---
Demographics + + + | Address | [address] | | | [place] [address] | + + + | Home Phone [...] Team Providers + +------+ + | Care American Indian Policy Specialist Name | Role | Phone | + +------+ + PP | Unavailable | + +------+ + Source Comments ALEXANDRA is fully live on both [facility] Ambulatory and [facility] InPatient.[facility] Allergies Not on File Current Medications Not [...]
--- OUTSIDE RECORDS SUMMARY | ~2018-04-10 | XMS | Clinical Summary ---
Demographics + + + | Address | [address] | | | [place] [address] | + + + | Home Phone | | + + + | Preferred Language | Unknown | + + + | Marital Status | | + + + | Jainism Affiliation | 1013 | + + + | Race | Unknown | + + + | Ethnic Group | Unknown | + + + Author + + + | Author | [facility] | + + + | Organization | [facility] | + + + | Address | Unknown | + + + | Phone | Unavailable | + + + Support + + +---------+ + | Name | Relationship | Address | Phone | + + +---------+ + | Gregory Boyer | ECON | Unknown | | + + +---------+ + Care Team Providers + +------+ + | Care Director Of Instructional Technology Name | Role | Phone | + [...] +------+-------+ + | MEDICAID | [place] | [id number] | | | [address] | | | N | | | | [place] | | | [place] | | | | [phone] | | | TRACK BROOM OPERATOR | | | | | + [...] Self | [birth year] | Home: | [address] | | | al/Fam | | 1960 | [phone] | [address] [place] | | | [place] | | | [phone] | [phone] | + +--------+ +--------+ + +
[2018-04-10] MEDS ORDERED: LISINOPRIL10 MG PO (02:23)
--- NOTE | 2018-04-10 18:23 | EKG ---
[facility] [address] [place], [place] [address] Signed Normal sinus rhythm Normal ECG When compared with ECG of 19-AUG-2017 20:34, No significant change was found Confirmed by FRANTZ BAIRES DO ([id number]) on 04/10/2018 6:23:42 PM Electronically Signed By: FRANTZ BAIRES DO 04/10/18 1823 PATIENT NAME: FANG COLÓN Electrocardiogram DATE OF : 62 PHYSICIAN: FRANTZ BAIRES DO REPORT #: [id number] REPORT IS CONFIDENTIAL AND NOT TO BE RELEASED WITHOUT AUTHORIZATION
== END 2018-04-10 02:32 | disposition home or self-care (01) ==
LOC: ED 00:57
DX: R07.9 Chest pain, unspecified (principal); J45.909 Unspecified asthma, uncomplicated; I10 Essential (primary) hypertension; F43.10 Post-traumatic stress disorder, unspecified; Z88.0 Allergy status to penicillin; Z88.8 Allergy status to other drugs, medicaments and biological substances; Z88.5 Allergy status to narcotic agent; Z79.899 Other long term (current) drug therapy
CPT/HCPCS: 71045; 80053; 84484; 85025; 93005; 93010; 99285

== ENCOUNTER 2018-05-02 16:04 | Emergency (ER) | payer OTHER ==
[~2018-05-02] VITALS: Ht 167.6 cm; Wt 84.8 kg
--- OUTSIDE RECORDS SUMMARY | ~2018-05-02 | XMS | Clinical Summary ---
Demographics + + + | Address | [address] | | | [place] [address] | + + + | Home Phone | | + + + | Preferred Language | Unknown | + + + | Marital Status | | + + + | Caodaism Affiliation | 1013 | + + + | Race | Unknown | + + + | Ethnic Group | Unknown | + + + Author + + + | Author | [facility] | + + + | Organization | [facility] | + + + | Address | Unknown | + + + | Phone | Unavailable | + + + Support + + +---------+ + | Name | Relationship | Address | Phone | + + +---------+ + | Gregory Boyer | ECON | Unknown | | + + +---------+ + Care Team Providers + +------+ + | Care Lag Screwer Name | Role | Phone | + +------+ + | Leighton Prado | PP | | + +------+ + Allergies + + + + + + | Active Allergy | Reactions | Severity | Noted | Comments | | | | | Date | | + + + + + + | Morphine | Nausea and Vomiting, | Medium | 05/27/20 | | | | Hallucinations | | 15 | | + + + + + + | Penicillins | Hives | High | 05/27/20 | | | | | | 15 | | + + + + + + | Diazepam | Hallucinations | Medium | 09/04/19 | | | | | | 16 | | + + + + + + Current Medications + + +-------+---------+------+------+-------+ | Prescription | Sig. | Disp. | Refills | Star | End | Statu | | | | | | t | Date | s | | | | | | Date | | | + + +-------+---------+------+------+-------+ | lisinopril | Take 10 mg by mouth | | | | | Activ | | (ZESTRIL) 10 MG | daily. | | | | | e | | tablet | | | | | | | + + +-------+---------+------+------+-------+ Active Problems + + + | Problem | Noted Date | + + + | Spells of decreased attentiveness | 05/27/2015 | + + + | Essential hypertension | 05/27/2015 | + + + Resolved Problems + + + + | Problem | Noted | Resolved | | | Date | Date | + + + + | Seizure disorder (HCC) | 05/27/20 | | | | 15 | 6 | + + + + Encounters +--------+ + + + + | Date | Type | Specialty | Care Team | Description | +--------+ + + + + | 05/02/ | Documentati | | Ana Vasquezitha, | | | 2018 | on Only | | MD | | +--------+ + + + + from Last 3 Months Family History + + +------+ + | Medical History | Relation | Name | Comments | + + +------+ + | Asthma | Father | | | + + +------+ + + +------+--------+ + | Relation | Name | Status | Comments | + +------+--------+ + | Father | | | | + +------+--------+ + Social History + +-------+ +--------+------+ | Tobacco Use | Types | Packs/Day | Years | Date | | | | | Used | | + +-------+ +--------+------+ | Never Smoker | | | | | + +-------+ +--------+------+ + + +---------+ + | Alcohol Use | Drinks/We | oz/Week | Comments | | | ek | | | + + +---------+ + | Yes | | | very little - a wine cooler, every 3 days | | | | | with dinner. | + + +---------+ + + + + | Sex Assigned at | Date Recorded | | | | + + + | Not on file | | + + + Last Filed Vital Signs + + + + | Vital Sign | Reading | Time Taken | + + + + | Blood Pressure | 127/81 | 09/04/2015 11:18 AM PST | + + + + | Pulse | 78 | 09/04/2015 11:18 AM PST | + + + + | Temperature | - | - | + + + + | Respiratory Rate | - | - | + + + + | Oxygen Saturation | - | - | + + + + | Inhaled Oxygen | - | - | | Concentration | | | + + + + | Weight | 87.1 kg (192 lb) | 09/04/2015 11:18 AM PST | + + + + | Height | 167.6 cm (5' 6") | 09/04/2015 11:18 AM PST | + + + + | Body Mass Index | 30.99 | 09/04/2015 11:18 AM PST | + + + + Plan of Treatment + + + + + | Health Maintenance | Due Date | Last Done | Comments | + + + + + | Vaccine: | | | | | Dtap/Tdap/Td (1 - | 0 | | | | Tdap) | | | | + + + + + | Cervical Cancer | | | | | Screening (Pap) | 1 | | | + + + + + | Breast Cancer | | | | | Screening | 1 | | | | (Mammogram) | | | | + + + + + | Colon Cancer | | | | | Screening | 1 | | | | (Colonoscopy) | | | | + + + + + | Vaccine: Influenza | | | | | (#1) | 8 | | | + + + + + Results Not on filefrom Last 3 Months Insurance + +--------+ +------+-------+ + | Payer | Benefi | Subscriber | Type | Phone | Address | | | t Plan | ID | | | | | | / | | | | | | | Group | | | | | + +--------+ +------+-------+ + | MEDICAID | [place] | [id number] | | | [address] | | | N | | | | [place] | | | [place] | | | | [phone] | | | FILTER TIP INSPECTOR | | | | | + +--------+ +------+-------+ + + +--------+ +--------+ + + | Guarantor Name | Accoun | Relation to | Date | Phone | Billing Address | | | t Type | Patient | of | | | | | | | | | | + +--------+ +--------+ + + | SUYAPA COLÓN | Person | Self | [birth year] | Home: | [address] | | | al/Fam | | 1960 | [phone] | [address] [place] | | | [place] | | | [phone] | [phone] | + +--------+ +--------+ + +
--- OUTSIDE RECORDS SUMMARY | ~2018-05-02 | XMS | Clinical Summary ---
Demographics + + + | Address | [address] | | | [address] | | | [place] [address] | + + + | Home Phone | | + + + | Preferred Language | Unknown | + + + | Marital Status | Single | + + + | Restorationism Affiliation | 1038 | + + + | Race | Unknown | + + + | Ethnic Group | Unknown | + + + Author + + + | Author | [facility] | | | and [place] | + + + | Organization | [facility] | | | and [place] | [...] Team Providers + +------+ + | Care Superintendent Concrete Mixing Plant Name | Role | Phone | + [...] + + + + | Overview: RENETTAU [id number] Decision | + + + + + [...]
--- OUTSIDE RECORDS SUMMARY | ~2018-05-02 | XMS | Clinical Summary ---
Demographics + + + | Address | [address] | | | [place] [address] | + + + | Home Phone | | + + + | Preferred Language | Unknown | + + + | Marital Status | Unknown | + + + | Worship Affiliation | Unknown | + + + [...] Team Providers + +------+ + | Care Expander Name | Role | Phone | + +------+ + PP | Unavailable | + +------+ + Source Comments ALEXANDRA is fully live on both [facility] and [facility] InPatient.[facility] Allergies Not on File Current [...]
--- OUTSIDE RECORDS SUMMARY | ~2018-05-02 | XMS | Clinical Summary ---
Demographics + + + | Address | [address] | | | [place] [address] | + + + | Home Phone | | + + + | Preferred Language | Unknown | + + + | Marital Status | | + + + | Congregation Affiliation | 1013 | + + + | Race | Unknown | + + + | Ethnic Group | Unknown | + + + Author + + + | Author | [facility] | + + + | Organization | [facility] | + + + | Address | Unknown | + + + | Phone | Unavailable | + + + Support + + +---------+ + | Name | Relationship | Address | Phone | + + +---------+ + | Gregory Boyer | ECON | Unknown | | + + +---------+ + Care Team Providers + +------+ + | Care Green Marketing Analyst Name | Role | Phone | + [...] +------+-------+ + | MEDICAID | [place] | [id number] | | | [address] | | | N | | | | [place] | | | [place] | | | | [phone] | | | PSYCHOLOGY INTERN | | | | | + +--------+ [...] | [birth year] Home: | [address] | | | al/Fam | | 1960 | [phone] | [address] [place] | | | [place] | | | [address] | [phone] | + +--------+ +--------+ + +
--- OUTSIDE RECORDS SUMMARY | ~2018-05-02 | XMS | Encounter Summary ---
Demographics + + + | Address | [address] | | | [place] [address] | + + + | Home Phone | | + + + | Preferred Language | Unknown | + + + | Marital Status | | + + + | Mormonism Affiliation | 1013 | + + + | Race | Unknown | + + + | Ethnic Group | Unknown | + + + Author + + + | Author | [facility] | + + + | Organization | [facility] | + + + | Address | Unknown | + + + | Phone | Unavailable | + + + Support + + +---------+ + | Name | Relationship | Address | Phone | + + +---------+ + | Gregory Boyer | ECON | Unknown | | + + +---------+ + Care Team Providers + +------+ + | Care Funeral Director'S Assistant Name | Role | Phone | [...] | [address] | | | | | [address] | | | | | | [phone] | | | +--------+ + + + [...]
--- OUTSIDE RECORDS SUMMARY | ~2018-05-02 | XMS | Clinical Summary ---
Demographics + + + | Address | [address] | | | [place] [address] | + + + | Home Phone | | + + + | Preferred Language | Unknown | + + + | Marital Status | Unknown | + + + | Mu-Ism Affiliation | Unknown | + + + [...] Team Providers + +------+ + | Care An/Ssn 2 4 Operator Name | Role | Phone | + +------+ + PP | Unavailable | + +------+ + Source Comments ALEXANDRA is fully live on both [facility] and [facility] InPatient.[facility] Allergies Not on File Current [...]
--- OUTSIDE RECORDS SUMMARY | ~2018-05-02 | XMS | Clinical Summary ---
Demographics + + + | Address | [address] | | | [address] | | | [place] [address] | + + + | Home Phone | | + + + | Preferred Language | Unknown | + + + | Marital Status | Single | + + + | Scientology Affiliation | 1038 | + + + | Race | Unknown | + + + | Ethnic Group | Unknown | + + + Author + + + | Author | [facility] | | | and [place] | + + + | Organization | [facility] | | | and [place] [...] Team Providers + +------+ + | Care Vascular Specialists Name | Role | Phone | + [...] + + + + | Overview: RENETTAU [id number] Decision | + + + + + [...]
--- OUTSIDE RECORDS SUMMARY | ~2018-05-02 | XMS | Encounter Summary ---
Demographics + + + | Address | [address] | | | [place] [address] | + + + | Home Phone | | + + + | Preferred Language | Unknown | + + + | Marital Status | | + + + | Temple Affiliation | 1013 | + + + | Race | Unknown | + + + | Ethnic Group | Unknown | + + + Author + + + | Author | [facility] | + + + | Organization | [facility] | + + + | Address | Unknown | + + + | Phone | Unavailable | + + + Support + + +---------+ + | Name | Relationship | Address | Phone | + + +---------+ + | Gregory Boyer | ECON | Unknown | | + + +---------+ + Care Team Providers + +------+ + | Care Telescope Repairer Name | Role | Phone | + [...] | [address] | | | | | [address] | | | | | | [phone] | | | +--------+ + + + [...]
--- OUTSIDE RECORDS SUMMARY | 2018-05-02 16:08 | XMS ---
PreManage Notification: FANG COLÓN Security Drain Cleaner Events 1 event(s) in the past 18 months Most recent security events: Elopement at [facility] 11/01/2016 16:57 - Patient eloped before treatment completed. Details: AMA CRITERIA MET - Group Notification - [facility] - 2 Visits in 30 Days CARE PROVIDERS COTY KINGSLEY Physician 03/28/2018-Current PHONE: [phone] VIKTORIA GIBBONS Internal Medicine: Pulmonary Disease 04/27/2018-Current PHONE: [phone] [facility] IN[facility] Primary Care Current PHONE: Unknown Michael has no Care Guidelines for this patient. Care History Medical/Surgical 03/29/2018 [facility] - Patient is currently established with [facility]. If patient is seen in the ED during business hours. Please contact CHWs at [facility]. Care Recommendation: This patient has had 5 or more Emergency Department visits in the last 12 months.\T\nbsp; Patient requires education on the scope and purpose of the ED as an acute care provider not a Primary Care Provider and should not be utilized for chronic conditions.\T\nbsp; These are guidelines and the provider should exercise clinical judgment when providing care. E.D. VISIT COUNT (12 MO.) 10 [facility] TOTAL 10 NOTE: Visits indicate total known visits. ED/UCC VISIT TRACKING (12 MO.) 05/02/2018 16:[address] [facility] [place] TYPE: Emergency COMPLAINT: - HYPERTENSION 04/10/2018 00:58 [place] [facility] [place] TYPE: Emergency COMPLAINT: - CHEST PAIN DIAGNOSES: - Post-traumatic stress disorder, unspecified - Allergy status to other drugs, medicaments and biological substances status - Allergy status to penicillin - Chest pain, unspecified - Shortness of breath - Unspecified asthma, uncomplicated - Essential (primary) hypertension - Allergy status to narcotic agent status - Other director long term care (current) drug therapy 04/08/2018 13:44 [place] [facility] [place] TYPE: Emergency COMPLAINT: - MEDICATION REACTION DIAGNOSES: - Encounter for issue of repeat prescription 03/28/2018 11:06 [facility] [place] TYPE: Emergency COMPLAINT: - SEIZURE DIAGNOSES: - Allergy status to other drugs, medicaments and biological substances status - Unspecified asthma, uncomplicated - Other director long term care (current) drug therapy - Allergy status to penicillin - Unspecified convulsions - Syncope and collapse - Essential (primary) hypertension - Allergy status to narcotic agent status 11/26/2017 14:41 [facility] [place] TYPE: Emergency COMPLAINT: - SEIZURE DIAGNOSES: - Allergy status to other drugs, medicaments and biological substances status - Allergy status to penicillin - Other skilled nursing (current) drug therapy - Allergy status to narcotic agent status - Unspecified convulsions - Essential (primary) hypertension 08/19/2017 20:05 [place] [place] TYPE: Emergency COMPLAINT: - FLU SYMPTOMS DIAGNOSES: - Allergy status to penicillin - Essential (primary) hypertension - Allergy status to other antibiotic agents status - Unspecified asthma, uncomplicated - Allergy status to other drugs, medicaments and biological substances status - Other director long term care (current) drug therapy - Cough - Allergy status to narcotic agent status - Influenza due to other identified influenza virus with other respiratory manifestations 08/18/2017 16:15 [place] [place] TYPE: Emergency COMPLAINT: - NAUSEA/VOMITING DIAGNOSES: - Essential (primary) hypertension - Allergy status to narcotic agent status - Nausea with vomiting, unspecified - Influenza due to unidentified influenza virus with other respiratory manifestations - Allergy status to other drugs, medicaments and biological substances status - Allergy status to penicillin - Unspecified asthma, uncomplicated - Other skilled nursing (current) drug therapy - Allergy status to other antibiotic agents status 06/24/2017 15:26 [place] [place] TYPE: Emergency COMPLAINT: - SORE THROAT/ RINGING EARS DIAGNOSES: - Allergy status to other antibiotic agents status - Allergy status to other drugs, medicaments and biological substances status - Essential (primary) hypertension - Chronic sinusitis, unspecified - Allergy status to narcotic agent status - Other director long term care (current) drug therapy - Allergy status to penicillin - Unspecified asthma, uncomplicated - Cough 06/09/2017 18:53 [facility] [place] TYPE: Emergency COMPLAINT: - SEIZURE DIAGNOSES: - Unspecified asthma, uncomplicated - Allergy status to other drugs, medicaments and biological substances status - OTHER SPECIFIED POSTPROCEDURAL STATES - Essential (primary) hypertension - Localization-related (focal) (partial) symptomatic epilepsy and epileptic syndromes with simple partial seizures, not intractable, without status epilepticus - Allergy status to narcotic agent status - Allergy status to penicillin - Unspecified convulsions - Other skilled nursing (current) drug therapy 05/11/2017 18:[address] [place] TYPE: Emergency COMPLAINT: - SEIZURE DIAGNOSES: - Unspecified asthma, uncomplicated - Allergy status to narcotic agent status - Cough - Acute bronchitis, unspecified - Essential (primary) hypertension - Allergy status to penicillin - Other director long term care (current) drug therapy - Allergy status to other drugs, medicaments and biological substances status - Epilepsy, unspecified, not intractable, without status epilepticus INPATIENT VISIT TRACKING (12 MO.) No inpatient visits to display in this time frame [email or web address]
== END 2018-05-02 19:14 | disposition home or self-care (01) ==
LOC: ED 16:04
DX: F41.9 Anxiety disorder, unspecified (principal); I10 Essential (primary) hypertension; J45.909 Unspecified asthma, uncomplicated; F43.10 Post-traumatic stress disorder, unspecified; Z88.0 Allergy status to penicillin; Z88.8 Allergy status to other drugs, medicaments and biological substances; Z88.5 Allergy status to narcotic agent; Z79.899 Other long term (current) drug therapy
CPT/HCPCS: 99283

== ENCOUNTER 2018-05-07 13:47 | Emergency (ER) | payer OTHER ==
[~2018-05-07] VITALS: Ht 167.6 cm; Wt 84.8 kg
--- OUTSIDE RECORDS SUMMARY | ~2018-05-07 | XMS | Encounter Summary ---
Demographics + + + | Address | [address] | | | [place] [address] | + + + | Home Phone | | + + + | Preferred Language | Unknown | + + + | Marital Status | | + + + | Rastafarian Affiliation | 1013 | + + + | Race | Unknown | + + + | Ethnic Group | Unknown | + + + Author + + + | Author | [facility] | + + + | Organization | [facility] | + + + | Address | Unknown | + + + | Phone | Unavailable | + + + Support + + +---------+ + | Name | Relationship | Address | Phone | + + +---------+ + | Gregory Boyer | ECON | Unknown | | + + +---------+ + Care Team Providers + +------+ + | Care Laster Hand Name | Role | Phone | + +------+ + | Leighton Prado | PCP | | + +------+ + Encounter Details +--------+ + + + + | Date | Type | Department | Care Team | Description | +--------+ + + + + | 05/02/ | [facility] | [facility] | Lorenza Vasquez, | | | 2018 | on Only | [facility] | MD Magali Miller | | | | | [address] | [place] | | | | | [place] | [address] | | | | | [address] | | | | | | [phone] | | | +--------+ + + + [...] on file | | + + + as of this encounter Progress Notes Dianna Oconnell - 05/02/2018 10:09 AM LUIS ANeflor referral - [facility] in this encounter Plan of Treatment Not on fileas of this encounter Visit Diagnoses Not on filein this encounter"
--- OUTSIDE RECORDS SUMMARY | ~2018-05-07 | XMS | Clinical Summary ---
Demographics + + + | Address | [address] | | | [address] | | | [place] [address] | + + + | Home Phone | | + + + | Preferred Language | Unknown | + + + | Marital Status | Single | + + + | Anglican Affiliation | 1038 | + + + | Race | Unknown | + + + | Ethnic Group | Unknown | + + + Author + + + | Author | [facility] | | | and [place] | + + + | Organization | [facility] | | | and [place] [...] Team Providers + +------+ + | Care Laborer Plumbing Name | Role | Phone | + [...] + + + + | Overview: RENETTAU [id number] Decision | + + + + + [...]
--- OUTSIDE RECORDS SUMMARY | ~2018-05-07 | XMS | Clinical Summary ---
Demographics + + + | Address | [address] | | | [place] [address] | + + + | Home Phone | | + + + | Preferred Language | Unknown | + + + | Marital Status | | + + + | Quaker Affiliation | 1013 | + + + | Race | Unknown | + + + | Ethnic Group | Unknown | + + + Author + + + | Author | [facility] | + + + | Organization | [facility] | + + + | Address | Unknown | + + + | Phone | Unavailable | + + + Support + + +---------+ + | Name | Relationship | Address | Phone | + + +---------+ + | Gregory Boyer | ECON | Unknown | | + + +---------+ + Care Team Providers + +------+ + | Care Database Report Writer Name | Role | Phone | + [...] +------+-------+ + | MEDICAID | [place] | [id number] | | | [address] | | | N | | | | [place] | | | [place] | | | | [address] | | | NE[employer] TUBE PUMPER | | | | | + +--------+ [...] | [birth year] Home: | [address] | | | al/Fam | | 1960 | [phone] | [address] [place] | | | [place] | | | [phone] | [phone] | + +--------+ +--------+ + +
--- OUTSIDE RECORDS SUMMARY | ~2018-05-07 | XMS | Clinical Summary ---
Demographics + + + | Address | [address] | | | [place] [address] | + + + | Home Phone | | + + + | Preferred Language | Unknown | + + + | Marital Status | Unknown | + + + | Sabianism Affiliation | Unknown | + + + [...] Team Providers + +------+ + | Care Supervisor Policy Change Clerks Name | Role | Phone | + +------+ + PP | Unavailable | + +------+ + Source Comments ALEXANDRA is fully live on both [facility] and [facility] InPatient.[facility] Allergies Not on File Current Medications [...]
--- OUTSIDE RECORDS SUMMARY | 2018-05-07 13:52 | XMS ---
PreManage Notification: FANG COLÓN Security Administrative Services Coordinator Events No recent Security Events currently on file CRITERIA MET - Group Notification - 6 ED Visits in 6 Months - [facility] - 2 Visits in 30 Days CARE PROVIDERS COTY KINGSLEY Physician Chair Maker 03/28/2018-Current PHONE: [phone] VIKTORIA DUGGAN Internal Medicine: Pulmonary Disease 04/27/2018-Current PHONE: [phone] [facility] Primary Care Current PHONE: Unknown Michael has no Care Guidelines for this patient. Care History Medical/Surgical 05/03/2018 [facility] - Patient has an apt with Dr Duggan to establish on 06/04/18 @ 11:00. - Patient is currently working with [employer]. - CHW has tried to contact patient several times but patient only calls back when something is needed. 03/29/2018 [facility] - Patient is currently established with [facility]. If patient is seen in the ED during business hours. Please contact CHWs at [facility]. Care Recommendation: This patient has [...] providing care. E.D. VISIT COUNT (12 MO.) 11 [facility]. TOTAL 11 NOTE: Visits indicate total known visits. ED/UCC VISIT TRACKING (12 MO.) 05/07/2018 13:47 AN[facility]ONY Cook [place] TYPE: Emergency COMPLAINT: - FALL 05/02/2018 16:04 ANTHONY Cook [place] TYPE: Emergency COMPLAINT: - HYPERTENSION DIAGNOSES: - Essential (primary) hypertension - Unspecified asthma, uncomplicated - Post-traumatic stress disorder, unspecified - Allergy status to narcotic agent status - Other usp (current) drug therapy - Allergy status to penicillin - Allergy status to other drugs, medicaments and biological substances status - Anxiety disorder, unspecified 04/10/2018 00:58 ANTHONY Cook [place] TYPE: Emergency COMPLAINT: - CHEST PAIN DIAGNOSES: - Post-traumatic stress disorder, unspecified - Allergy status to other drugs, medicaments and biological substances status - Allergy status to penicillin - Chest pain, unspecified - Shortness of breath - Unspecified asthma, uncomplicated - Essential (primary) hypertension - Allergy status to narcotic agent status - Other manager terminal (current) drug therapy 04/08/2018 13:44 ANTHONY Cook [place] TYPE: Emergency COMPLAINT: - MEDICATION REACTION DIAGNOSES: - Encounter for issue of repeat prescription 03/28/2018 11:06 ANTHONY Cook [place] TYPE: Emergency COMPLAINT: - SEIZURE DIAGNOSES: - Allergy status to other drugs, medicaments and biological substances status - Unspecified asthma, uncomplicated - Other usp (current) drug therapy - Allergy status to penicillin - Unspecified convulsions - Syncope and collapse - Essential (primary) hypertension - Allergy status to narcotic agent status 11/26/2017 14:41 ANTHONY Cook OR TYPE: Emergency COMPLAINT: - SEIZURE DIAGNOSES: - Allergy status to other drugs, medicaments and biological substances status - Allergy status to penicillin - Other usp (current) drug therapy - Allergy status to narcotic agent status - Unspecified convulsions - Essential (primary) hypertension 08/19/2017 20:05 ANTHONY Cook OR TYPE: Emergency COMPLAINT: - FLU SYMPTOMS DIAGNOSES: - Allergy status to penicillin - Essential (primary) hypertension - Allergy status to other antibiotic agents status - Unspecified asthma, uncomplicated - Allergy status to other drugs, medicaments and biological substances status - Other usp (current) drug therapy - Cough - Allergy [...] penicillin - Unspecified asthma, uncomplicated - Other manager terminal (current) drug therapy - Allergy status to other antibiotic agents status 06/24/2017 15:26 ANTHONY Cook [place] TYPE: Emergency COMPLAINT: - SORE THROAT/ RINGING EARS DIAGNOSES: - Allergy status to other antibiotic agents status - Allergy status to other drugs, medicaments and biological substances status - Essential (primary) hypertension - Chronic sinusitis, unspecified - Allergy status to narcotic agent status - Other usp (current) drug therapy - Allergy status to [...] to penicillin - Unspecified convulsions - Other manager terminal (current) drug therapy 05/11/2017 18:40 ANTHONY Cook [place] TYPE: Emergency COMPLAINT: - SEIZURE DIAGNOSES: - Unspecified asthma, uncomplicated - Allergy status to narcotic agent status - Cough - Acute bronchitis, unspecified - Essential (primary) hypertension - Allergy status to penicillin - Other usp (current) drug therapy - Allergy status to other drugs, medicaments and biological substances status - Epilepsy, unspecified, not intractable, without status epilepticus INPATIENT VISIT TRACKING (12 MO.) No inpatient visits to display in this time frame [id number]
== END 2018-05-07 14:12 | disposition home or self-care (01) ==
LOC: ED 13:47
DX: G40.909 Epilepsy, unspecified, not intractable, without status epilepticus (principal); I10 Essential (primary) hypertension; Z88.0 Allergy status to penicillin; Z88.2 Allergy status to sulfonamides; Z88.5 Allergy status to narcotic agent; Z88.8 Allergy status to other drugs, medicaments and biological substances
CPT/HCPCS: 99283

== ENCOUNTER 2018-05-18 10:38 | Emergency (ER) | payer OTHER ==
[~2018-05-18] VITALS: Ht 167.6 cm; Wt 84.8 kg
--- OUTSIDE RECORDS SUMMARY | ~2018-05-18 | XMS | Clinical Summary ---
Demographics + + + | Address | [address] | | | [place] [address] | + + + | Home Phone | | + + + | Preferred Language | Unknown | + + + | Marital Status | | + + + | Spiritism Affiliation | 1013 | + + + | Race | Unknown | + + + | Ethnic Group | Unknown | + + + Author + + + | Author | [facility] | + + + | Organization | [facility] | + + + | Address | Unknown | + + + | Phone | Unavailable | + + + Support + + +---------+ + | Name | Relationship | Address | Phone | + + +---------+ + | Gregory Boyer | ECON | Unknown | | + + +---------+ + Care Team Providers + +------+ + | Care Jewel Waxer Name | Role | Phone | + [...] +------+-------+ + | MEDICAID | [place] | [id number] | | | [address] | | | N | | | | [place] | | | [place] | | | | [phone] | | | EXTENSION SERVICE ADVISOR | | | | | + +--------+ [...] | [birth year] Home: | [address] | | | al/Fam | | 1960 | [phone] | [address] [place] | | | [place] | | | [phone] | [phone] | + +--------+ +--------+ + +
--- OUTSIDE RECORDS SUMMARY | ~2018-05-18 | XMS | Clinical Summary ---
Demographics + + + | Address | [address] | | | [place] [address] | + + + | Home Phone | | + + + | Preferred Language | Unknown | + + + | Marital Status | Unknown | + + + | Faith Affiliation | Unknown | + + + [...] Team Providers + +------+ + | Care Provider Relations Consultant Name | Role | Phone | + +------+ + PP | Unavailable | + +------+ + Source Comments ALEXANDRA is fully live on both [facility] Ambulatory and [facility] InPatient.[facility] Allergies Not on File Current [...]
--- OUTSIDE RECORDS SUMMARY | ~2018-05-18 | XMS | Clinical Summary ---
Demographics + + + | Address | [address] | | | [place] [address] | + + + | Home Phone | | + + + | Preferred Language | Unknown | + + + | Marital Status | Unknown | + + + | Orthodox Affiliation | Unknown | + + + [...] Team Providers + +------+ + | Care Grant Specialist Name | Role | Phone | + +------+ + PP | Unavailable | + +------+ + Source Comments ALEXANDRA is fully live on both [facility] and [facility] InPatient.[facility] Allergies Not on File Current Medications [...]
--- OUTSIDE RECORDS SUMMARY | ~2018-05-18 | XMS | Encounter Summary ---
Demographics + + + | Address | [address] | | | [place] [address] | + + + | Home Phone | | + + + | Preferred Language | Unknown | + + + | Marital Status | | + + + | Buddhism Affiliation | 1013 | + + + | Race | Unknown | + + + | Ethnic Group | Unknown | + + + Author + + + | Author | [facility] | + + + | Organization | [facility] [facility] | + + + | Address | Unknown | + + + | Phone | Unavailable | + + + Support + + +---------+ + | Name | Relationship | Address | Phone | + + +---------+ + | Gregory Boyer | ECON | Unknown | | + + +---------+ + Care Team Providers + +------+ + | Care Psychiatry Adult Physician Name | Role | Phone | + [...] | [address] | | | | | [address] | | | | | | [phone] | | | +--------+ + + + [...]
--- OUTSIDE RECORDS SUMMARY | ~2018-05-18 | XMS | Clinical Summary ---
Demographics + + + | Address | [address] | | | [address] | | | [place] [address] | + + + | Home Phone | | + + + | Preferred Language | Unknown | + + + | Marital Status | Single | + + + | Mandaeism Affiliation | 1038 | + + + | Race | Unknown | + + + | Ethnic Group | Unknown | + + + Author + + + | Author | [facility] | | | and [place] | + + + | Organization | [facility] | | | and [place] [...] Team Providers + +------+ + | Care Food Processing Plant Manager Name | Role | Phone | [...] + + + + | Overview: RENETTAU [id number] Decision | + + + + + [...]
--- OUTSIDE RECORDS SUMMARY | ~2018-05-18 | XMS | Clinical Summary ---
Demographics + + + | Address | [address] | | | [place] [address] | + + + | Home Phone | | + + + | Preferred Language | Unknown | + + + | Marital Status | | + + + | Congregation Affiliation | 1013 | + + + | Race | Unknown | + + + | Ethnic Group | Unknown | + + + Author + + + | Author | [facility] | + + + | Organization | [facility] | + + + | Address | Unknown | + + + | Phone | Unavailable | + + + Support + + +---------+ + | Name | Relationship | Address | Phone | + + +---------+ + | Gregory Boyer | ECON | Unknown | | + + +---------+ + Care Team Providers + +------+ + | Care Field Crop Farming Supervisor Name | Role | Phone | [...] +------+-------+ + | MEDICAID | [place] | [id number] | | | [address] | | | N | | | | [place] | | | [place] | | | | [address] | | | BRAIN WAVE TECHNICIAN | | | | | + [...] | [birth year] | Home: | [address] | | | al/Fam | | 1960 | [phone] | [address] [place] | | | [place] | | | [phone] | [phone] | + +--------+ +--------+ + +
--- OUTSIDE RECORDS SUMMARY | ~2018-05-18 | XMS | Encounter Summary ---
Demographics + + + | Address | [address] | | | [place] [address] | + + + | Home Phone | | + + + | Preferred Language | Unknown | + + + | Marital Status | | + + + | Mandaeism Affiliation | 1013 | + + + | Race | Unknown | + + + | Ethnic Group | Unknown | + + + Author + + + | Author | [facility] | + + + | Organization | [facility] | + + + | Address | Unknown | + + + | Phone | Unavailable | + + + Support + + +---------+ + | Name | Relationship | Address | Phone | + + +---------+ + | Gregory Boyer | ECON | Unknown | | + + +---------+ + Care Team Providers + +------+ + | Care Network Control Operators Supervisor Name | Role | Phone | [...] | [address] | | | | | [address] | | | | | | [phone] | | | +--------+ + + + [...]
--- OUTSIDE RECORDS SUMMARY | ~2018-05-18 | XMS | Clinical Summary ---
Demographics + + + | Address | [address] | | | [address] | | | [place] [address] | + + + | Home Phone [...] Author + + + | Author | [facility] | | | and [place] | + + + | Organization | [facility] | | | and [place] [...] Team Providers + +------+ + | Care Building Carpenter Name | Role | Phone | + [...] + + + + | Overview: RENETTAU [id number] Decision | + + + + + [...]
--- OUTSIDE RECORDS SUMMARY | 2018-05-18 10:44 | XMS ---
PreManage Notification: FANG COLÓN Security Electrical Prospecting Supervisor Events No recent Security Events currently on file CRITERIA MET - Group Notification - 6 ED Visits in 6 Months - [facility] - 2 Visits in 30 Days CARE PROVIDERS COTY KINGSLEY Physician Air Traffic Control Specialist Center 03/28/2018-Current PHONE: [phone] VIKTORIA DUGGAN Internal Medicine: Pulmonary Disease 04/27/2018-Current PHONE: [phone] [facility] INPATIENT Primary Care Current PHONE: Unknown Michael has no Care Guidelines for this patient. Care History Medical/Surgical 05/03/2018 [facility] - Patient has an apt with Dr Duggan to establish on 06/04/18 @ 11:00. - Patient is currently working with [employer]. - CHW has tried to contact patient several times but patient only calls back when something is needed. 03/29/2018 [facility] - Patient is currently established with [facility]. If patient is seen in the ED during business hours. Please contact CHWs at [facility]. Care Recommendation: This patient has [...] care. E.D. VISIT COUNT (12 MO.) 11 [facility]. TOTAL 11 NOTE: Visits indicate total known visits. ED/UCC VISIT TRACKING (12 MO.) 05/18/2018 10:39 ANTHONY Cook OR TYPE: Emergency COMPLAINT: - LEFT FOOT INJURY 05/07/2018 13:47 ANTHONY Cook OR TYPE: Emergency COMPLAINT: - FALL DIAGNOSES: - Allergy status to sulfonamides status - Allergy status to penicillin - Unspecified convulsions - Essential (primary) hypertension - Allergy status to narcotic agent status - Epilepsy, unspecified, not intractable, without status epilepticus - Allergy status to other drugs, medicaments and biological substances status 05/02/2018 16:04 ANTHONY Cook OR TYPE: Emergency COMPLAINT: - HYPERTENSION DIAGNOSES: - Essential (primary) hypertension - Unspecified asthma, uncomplicated - Post-traumatic stress disorder, unspecified - Allergy status to narcotic agent status - Other terminal operator (current) drug therapy - Allergy status to [...] status to narcotic agent status - Other terminal operator (current) drug therapy 04/08/2018 13:44 ANTHONY Cook OR TYPE: Emergency COMPLAINT: - MEDICATION REACTION DIAGNOSES: - Encounter for issue of repeat prescription 03/28/2018 11:06 ANTHONY Cook [place] TYPE: Emergency COMPLAINT: - SEIZURE DIAGNOSES: - Allergy status to other drugs, medicaments and biological substances status - Unspecified asthma, uncomplicated - Other [facility] drug therapy - Allergy status to penicillin - Unspecified convulsions - Syncope and collapse - Essential (primary) hypertension - Allergy status to narcotic agent status 11/26/2017 14:41 ANTHONY Cook OR TYPE: Emergency COMPLAINT: - SEIZURE DIAGNOSES: - Allergy status to other drugs, medicaments and biological substances status - Allergy status to penicillin - Other terminal operator (current) drug therapy - Allergy status to narcotic agent status - Unspecified convulsions - Essential (primary) hypertension 08/19/2017 20:05 ANTHONY Cook OR TYPE: Emergency COMPLAINT: - FLU SYMPTOMS DIAGNOSES: - Allergy status to penicillin - Essential (primary) hypertension - Allergy status to other antibiotic agents status - Unspecified asthma, uncomplicated - Allergy status to other drugs, medicaments and biological substances status - Other terminal operator (current) drug therapy - Cough - Allergy [...] penicillin - Unspecified asthma, uncomplicated - Other terminal operator (current) drug therapy - Allergy status to other antibiotic agents status 06/24/2017 15:26 [facility]ONY [facility] [place] TYPE: Emergency COMPLAINT: - SORE THROAT/ RINGING EARS DIAGNOSES: - Allergy status to other antibiotic agents status - Allergy status to other drugs, medicaments and biological substances status - Essential (primary) hypertension - Chronic sinusitis, unspecified - Allergy status to narcotic agent status - Other terminal operator (current) drug therapy - Allergy status to penicillin - Unspecified asthma, uncomplicated - Cough 06/09/2017 18:53 AN[facility]ONY [facility] [place] TYPE: Emergency [...] to penicillin - Unspecified convulsions - Other [facility] (current) drug therapy INPATIENT VISIT TRACKING (12 MO.) No inpatient visits to display in this time frame [email or web address]
== END 2018-05-18 13:55 | disposition home or self-care (01) ==
LOC: ED 10:38
DX: S90.32XA Contusion of left foot, initial encounter (principal); I10 Essential (primary) hypertension; Z88.0 Allergy status to penicillin; Z88.2 Allergy status to sulfonamides; Z88.8 Allergy status to other drugs, medicaments and biological substances; Z79.899 Other long term (current) drug therapy; W22.01XA Walked into wall, initial encounter
CPT/HCPCS: 73630; 99283

== ENCOUNTER 2018-08-21 09:53 | Emergency (ER) | payer OTHER ==
[~2018-08-21] VITALS: Ht 167.6 cm; Wt 84.8 kg
[~2018-08-21 09:53] MED LIST changes: +ZESTRIL40 MG PO
--- OUTSIDE RECORDS SUMMARY | 2018-08-21 09:58 | XMS ---
PreManage Notification: FANG COLÓN Security Waiter/Waitress Third Class Events No recent Security Events currently on file CRITERIA MET - Group Notification - 6 ED Visits in 6 Months CARE PROVIDERS COTY KINGSLEY Physician Doorperson 03/28/2018-Current PHONE: [phone] Armin Duggan Internal Medicine: Pulmonary Disease 04/27/2018-Current PHONE: Unknown [facility] IN[facility] Primary Care Current PHONE: Unknown Michael has no Care Guidelines for this patient. Care History Medical/Surgical 05/03/2018 [facility] - Patient has an apt with Dr Duggan to establish on 06/04/18 @ 11:00. - Patient is currently working with [employer]. - CHW has tried to contact patient several times but patient only calls back when something is needed. 03/29/2018 [facility] - Patient is currently established with [facility]. If patient is seen in the ED during business hours. Please contact CHWs at [facility]. Care Recommendation: This patient has had 5 [...] providing care. E.D. VISIT COUNT (12 MO.) 8 [facility]. TOTAL 8 NOTE: Visits indicate total known visits. ED/UCC VISIT TRACKING (12 MO.) 08/21/2018 09:54 ANTHONY Cook [place] TYPE: Emergency COMPLAINT: - SEIZURE/MED CHECK 05/18/2018 10:39 ANTHONY Cook [place] TYPE: Emergency COMPLAINT: - LEFT FOOT INJURY DIAGNOSES: - Other senior living (current) drug therapy - Essential (primary) hypertension - Contusion of left foot, initial encounter - Allergy status to penicillin - Walked into wall, initial encounter - Unspecified injury of left foot, initial encounter - Allergy status to other drugs, medicaments and biological substances status - Allergy status to sulfonamides status 05/07/2018 13:47 ANTHONY Cook [place] TYPE: Emergency [...] status to narcotic agent status - Other senior living (current) drug therapy - Allergy status to [...] care (current) drug therapy 04/08/2018 13:44 ANTHONY Cook [...] status to narcotic agent status 11/26/2017 14:[address] [facility] [place] TYPE: Emergency COMPLAINT: - SEIZURE DIAGNOSES: - Allergy status to other drugs, medicaments and biological substances status - Allergy status to penicillin - Other director long term care (current) drug therapy - Allergy status to narcotic agent status - Unspecified convulsions - Essential (primary) hypertension INPATIENT VISIT TRACKING (12 MO.) No inpatient visits to display in this time frame [email or web address]
[2018-08-21] MEDS ORDERED: AMLODIPINE BESYL5 MG PO (10:10)
[2018-08-21] MEDS ORDERED: CITALOPRAM HBR40 MG PO (10:10)
== END 2018-08-21 10:31 | disposition home or self-care (01) ==
LOC: ED 09:53
DX: R56.9 Unspecified convulsions (principal); I10 Essential (primary) hypertension; J45.909 Unspecified asthma, uncomplicated; F43.10 Post-traumatic stress disorder, unspecified; Z88.0 Allergy status to penicillin; Z88.8 Allergy status to other drugs, medicaments and biological substances; Z88.2 Allergy status to sulfonamides; Z88.5 Allergy status to narcotic agent; Z79.899 Other long term (current) drug therapy
CPT/HCPCS: 99281

== ENCOUNTER 2018-09-01 13:20 | Emergency (ER) | payer OTHER ==
[~2018-09-01] VITALS: Ht 167.6 cm; Wt 84.8 kg
[~2018-09-01 13:20] MED LIST changes: +AMLODIPINE BESYL5 MG PO; +CITALOPRAM HBR40 MG PO
--- OUTSIDE RECORDS SUMMARY | 2018-09-01 13:24 | XMS ---
PreManage Notification: FANG COLÓN Security Fish Inspector Events No recent Security Events currently on file CRITERIA MET - Group Notification - 6 ED Visits in 6 Months - [facility] - 2 Visits in 30 Days CARE PROVIDERS COTY KINGSLEY Physician Insurance Counsel 03/28/2018-Current PHONE: [phone] Armin Duggan Internal Medicine: Pulmonary Disease 04/27/2018-Current PHONE: Unknown [facility] INPATIENT Primary Care Current PHONE: Unknown Michael has no Care Guidelines for this patient. Care History Medical/Surgical 05/03/2018 [facility] - Patient has an apt with Dr Duggan to establish on 06/04/18 @ 11:00. - Patient is currently working with [employer]. - CHW has tried to contact patient several times but patient only calls back when something is needed. 03/29/2018 [facility] - Patient is currently established with [facility]. If patient is seen in the ED during business hours. Please contact CHWs at [facility]. Care Recommendation: This patient has had 5 [...] providing care. E.D. VISIT COUNT (12 MO.) 9 [facility]. TOTAL 9 NOTE: Visits indicate total known visits. ED/UCC VISIT TRACKING (12 MO.) 09/01/2018 13:21 [facility] [place] TYPE: Emergency COMPLAINT: - MEDICAL CLERANCE 08/21/2018 09:54 [facility] [place] TYPE: Emergency COMPLAINT: - SEIZURE/MED CHECK DIAGNOSES: - Post-traumatic stress disorder, unspecified - Allergy status to penicillin - Allergy status to sulfonamides status - Allergy status to other drugs, medicaments and biological substances status - Unspecified asthma, uncomplicated - Unspecified convulsions - Allergy status to narcotic agent status - Other dental service chief (current) drug therapy - Encounter for issue of repeat prescription - Essential (primary) hypertension 05/18/2018 10:39 [facility] [place] TYPE: Emergency COMPLAINT: - LEFT FOOT INJURY DIAGNOSES: - Other dental service chief (current) drug therapy - Essential (primary) hypertension - Contusion of left foot, initial encounter - Allergy status to penicillin - Walked into wall, initial encounter - Unspecified injury of left foot, initial encounter - Allergy status to other drugs, medicaments and biological substances status - Allergy status to sulfonamides status 05/07/2018 13:47 [facility] [place] TYPE: Emergency COMPLAINT: - FALL DIAGNOSES: - Allergy status to sulfonamides status - Allergy status to penicillin - Unspecified convulsions - Essential (primary) hypertension - Allergy status to narcotic agent status - Epilepsy, unspecified, not intractable, without status epilepticus - Allergy status to other drugs, medicaments and biological substances status 05/02/2018 16:[address] [facility] [address] [facility] [place] TYPE: Emergency COMPLAINT: - HYPERTENSION DIAGNOSES: - Essential (primary) hypertension - Unspecified asthma, uncomplicated - Post-traumatic stress disorder, unspecified - Allergy status to narcotic agent status - Other dental service chief (current) drug therapy - Allergy status to penicillin - Allergy status to other drugs, medicaments and biological substances status - Anxiety disorder, unspecified 04/10/2018 00:[address] [facility] [address] [facility] [place] TYPE: Emergency COMPLAINT: - CHEST PAIN DIAGNOSES: - Post-traumatic stress disorder, unspecified - Allergy status to other drugs, medicaments and biological substances status - Allergy status to penicillin - Chest pain, unspecified - Shortness of breath - Unspecified asthma, uncomplicated - Essential (primary) hypertension - Allergy status to narcotic agent status - Other assisted (current) drug therapy 04/08/2018 13:44 [facility] [place] TYPE: Emergency COMPLAINT: - MEDICATION REACTION DIAGNOSES: - Encounter for issue of repeat prescription 03/28/2018 11:06 [facility] [place] TYPE: Emergency COMPLAINT: - SEIZURE DIAGNOSES: - Allergy status to other drugs, medicaments and biological substances status - Unspecified asthma, uncomplicated - Other dental service chief (current) drug therapy - Allergy status to penicillin - Unspecified convulsions - Syncope and collapse - Essential (primary) hypertension - Allergy status to narcotic agent status 11/26/2017 14:41 [facility] [place] TYPE: Emergency COMPLAINT: - SEIZURE DIAGNOSES: - Allergy status to other drugs, medicaments and biological substances status - Allergy status to penicillin - Other dental service chief (current) drug therapy - Allergy status to narcotic agent status - Unspecified convulsions - Essential (primary) hypertension INPATIENT VISIT TRACKING (12 MO.) No inpatient visits to display in this time frame [id number]
== END 2018-09-01 19:05 | disposition home or self-care (01) ==
LOC: ED 13:20
DX: F59 Unspecified behavioral syndromes associated with physiological disturbances and physical factors (principal); J45.909 Unspecified asthma, uncomplicated; I10 Essential (primary) hypertension; F43.10 Post-traumatic stress disorder, unspecified; Z88.0 Allergy status to penicillin; Z88.2 Allergy status to sulfonamides; Z88.5 Allergy status to narcotic agent; Z88.8 Allergy status to other drugs, medicaments and biological substances; Z79.899 Other long term (current) drug therapy
CPT/HCPCS: 80053; 80176; 81001; 85025; 99285; G0480

== ENCOUNTER 2018-10-02 16:06 | Emergency (ER) | payer OTHER ==
[~2018-10-02] VITALS: Ht 167.6 cm; Wt 84.8 kg
--- OUTSIDE RECORDS SUMMARY | 2018-10-02 16:10 | XMS ---
PreManage Notification: FANG COLÓN Security Occupational Psychologist Events No recent Security Events currently on file CRITERIA MET - Group Notification - 6 ED Visits in 6 Months - [facility] - Has Care Guidelines CARE PROVIDERS COTY KINGSLEY Physician Residential Field Manager 03/28/2018-Current PHONE: [phone] Armin Duggan Internal Medicine: Pulmonary Disease 04/27/2018-Current PHONE: Unknown [facility] INPATIENT Primary Care Current PHONE: Unknown Michael has no Care Guidelines for this patient. Care History Medical/Surgical 05/03/2018 [facility] - Patient has an apt with Dr Duggan to establish on 06/04/18 @ 11:00. - Patient is currently working with [employer]. - CHW has tried to contact patient several times but patient only calls back when something is needed. 03/29/2018 [facility] - Patient is currently established with [facility]. If patient is seen in the ED during business hours. Please contact CHWs at [facility]. Care Recommendation: This patient has had [...] care. E.D. VISIT COUNT (12 MO.) 10 [facility]. TOTAL 10 NOTE: Visits indicate total known visits. ED/UCC VISIT TRACKING (12 MO.) 10/02/2018 16:07 [facility] [place] TYPE: Emergency COMPLAINT: - MEDICAL CLEARANCE 09/01/2018 13:21 [facility] [place] TYPE: Emergency COMPLAINT: - MEDICAL CLERANCE DIAGNOSES: - Unspecified behavioral syndromes associated with physiological disturbances and physical factors - Unspecified asthma, uncomplicated - Allergy status to other drugs, medicaments and biological substances status - Allergy status to penicillin - Post-traumatic stress disorder, unspecified - Essential (primary) hypertension - Allergy status to narcotic agent status - Allergy status to sulfonamides status - Other intermediate manager (current) drug therapy - Suicide attempt, initial encounter 08/21/2018 09:54 [facility] [place] TYPE: Emergency COMPLAINT: - SEIZURE/MED CHECK DIAGNOSES: - Post-traumatic stress disorder, unspecified - Allergy status to penicillin - Allergy status to sulfonamides status - Allergy status to other drugs, medicaments and biological substances status - Unspecified asthma, uncomplicated - Unspecified convulsions - Allergy status to narcotic agent status - Other intermediate manager (current) drug therapy - Encounter for issue of repeat prescription - Essential (primary) hypertension 05/18/2018 10:39 [facility] [place] TYPE: Emergency COMPLAINT: - LEFT FOOT INJURY DIAGNOSES: - Other intermediate manager (current) drug therapy - Essential (primary) hypertension [...] status to narcotic agent status - Other intermediate (current) drug therapy - Allergy status to [...] status to narcotic agent status - Other intermediate manager (current) drug therapy 04/08/2018 13:44 [facility] [place] TYPE: Emergency COMPLAINT: - MEDICATION REACTION DIAGNOSES: - Encounter for issue of repeat prescription 03/28/2018 11:06 [facility] [place] TYPE: Emergency COMPLAINT: - SEIZURE DIAGNOSES: - Allergy status to other drugs, medicaments and biological substances status - Unspecified asthma, uncomplicated - Other intermediate (current) drug therapy - Allergy status to penicillin - Unspecified convulsions - Syncope and collapse - Essential (primary) hypertension - Allergy status to narcotic agent status 11/26/2017 14:[address] [facility] [place] TYPE: Emergency COMPLAINT: - SEIZURE DIAGNOSES: - Allergy status to other drugs, medicaments and biological substances status - Allergy status to penicillin - Other intermediate (current) drug therapy - Allergy status to narcotic agent status - Unspecified convulsions - Essential (primary) hypertension INPATIENT VISIT TRACKING (12 MO.) No inpatient visits to display in this time frame [id number]
--- NOTE | 2018-10-03 00:36 | EKG ---
[facility] [address] [place] [address] Signed Normal sinus rhythm Anterolateral infarct , age undetermined Abnormal ECG When compared with ECG of 10-APR-2018 01:01, Anterior infarct is now present Anterolateral infarct is now present Confirmed by DOROTHY BLACK MD ([id number]) on 10/03/2018 12:35:52 AM Electronically Signed By: DOROTHY BLACK MD 10/03/18 0036 PATIENT NAME: FANG COLÓN Electrocardiogram DATE OF : 62 PHYSICIAN: DOROTHY BLACK MD REPORT #: [id number] REPORT IS CONFIDENTIAL AND NOT TO BE RELEASED WITHOUT AUTHORIZATION
== END 2018-10-02 22:05 ==
LOC: ED 16:06
DX: G47.00 Insomnia, unspecified (principal); I10 Essential (primary) hypertension; J45.909 Unspecified asthma, uncomplicated; F43.10 Post-traumatic stress disorder, unspecified; Z88.0 Allergy status to penicillin; Z88.2 Allergy status to sulfonamides; Z88.1 Allergy status to other antibiotic agents; Z88.5 Allergy status to narcotic agent; Z79.899 Other long term (current) drug therapy
CPT/HCPCS: 70450; 80053; 80176; 81001; 85025; 87088; 93005; 93010; 99284-25; G0480

== ENCOUNTER 2019-04-12 19:55 | Emergency (ER) | payer OTHER ==
[~2019-04-12] VITALS: Ht 167.6 cm; Wt 84.8 kg
--- OUTSIDE RECORDS SUMMARY | 2019-04-12 19:58 | XMS ---
PreManage Notification: FANG COLÓN Security Preparation Department Supervisor Events No recent Security Events currently on file CRITERIA MET - Group Notification - [facility] - Has Care Guidelines - [facility] - 2 Visits in 30 Days CARE PROVIDERS COTY KINGSLEY Physician Pbx Wire Chief 03/28/2018-Current PHONE: [phone] Armin Duggan Internal Medicine: Pulmonary Disease 04/27/2018-Current PHONE: Unknown [facility] INPATIENT Primary Care Current PHONE: Unknown Guidelines [facility] Guidelines Date: 04/11/2019 Care Coordination: Currently engaged in mental health services with [facility].\T\nbsp; Please contact [facility] with mental health concerns.\T\nbsp; [place]: \T\nbsp; [phone]\T\nbsp; [place]:\T\nbsp; [phone]. Care History Medical/Surgical 05/03/2018 [facility] - Patient has an apt with Dr Duggan to establish on 06/04/18 @ 11:00. - Patient is currently working with [employer]. - CHW has tried to contact patient several times but patient only calls back when something is needed. 03/29/2018 [facility] - Patient is currently established with [facility]. If patient is seen in the ED during business hours. Please contact CHWs at [facility]. Care Recommendation: This patient has had [...] care. E.D. VISIT COUNT (12 MO.) 8 [facility]. TOTAL 8 NOTE: Visits indicate total known visits. ED/UCC VISIT TRACKING (12 MO.) 04/12/2019 19:55 [facility] [place] TYPE: Emergency COMPLAINT: - WEAKNESS 04/05/2019 11:16 [facility] [place] TYPE: Emergency COMPLAINT: - SEIZURES DIAGNOSES: - Other retirement (current) drug therapy - Essential (primary) hypertension - Allergy status to sulfonamides status - Allergy status to other drugs, medicaments and biological substances status - Unspecified convulsions - Allergy status to narcotic agent status - Allergy status to penicillin 10/02/2018 16:07 [facility] [place] TYPE: Emergency COMPLAINT: - MEDICAL CLEARANCE DIAGNOSES: - Essential (primary) hypertension - Allergy status to other antibiotic agents status - Allergy status to sulfonamides status - Other rat exterminator (current) drug therapy - Insomnia, unspecified - Allergy status to narcotic agent status - Post-traumatic stress disorder, unspecified - Allergy status to penicillin - Unspecified asthma, uncomplicated 09/01/2018 13:21 [facility] [place] TYPE: Emergency COMPLAINT: - MEDICAL CLERANCE DIAGNOSES: - Unspecified behavioral syndromes associated with physiological disturbances and physical factors - Unspecified asthma, uncomplicated - Allergy status to other drugs, medicaments and biological substances status - Allergy status to penicillin - Post-traumatic stress disorder, unspecified - Essential (primary) hypertension - Allergy status to narcotic agent status - Delusional disorders - Suicidal ideations - Allergy status to sulfonamides status - Other retirement (current) drug therapy - Anxiety disorder, unspecified - Suicide attempt, initial encounter 08/21/2018 09:54 [facility] [place] TYPE: Emergency COMPLAINT: - SEIZURE/MED CHECK DIAGNOSES: - Post-traumatic stress disorder, unspecified - Allergy status to penicillin - Allergy status to sulfonamides status - Allergy status to other drugs, medicaments and biological substances status - Unspecified asthma, uncomplicated - Unspecified convulsions - Allergy status to narcotic agent status - Other rat exterminator (current) drug therapy - Encounter for issue of repeat prescription - Essential (primary) hypertension 05/18/2018 10:39 [facility] [place] TYPE: Emergency COMPLAINT: - LEFT FOOT INJURY DIAGNOSES: - Other retirement (current) drug therapy - Essential (primary) hypertension [...] status to narcotic agent status - Other rat exterminator (current) drug therapy - Allergy status to penicillin - Allergy status to other drugs, medicaments and biological substances status - Anxiety disorder, unspecified INPATIENT VISIT TRACKING (12 MO.) No inpatient visits to display in this time frame [email or web address]
== END 2019-04-12 22:51 | disposition home or self-care (01) ==
LOC: ED 19:55
DX: R53.1 Weakness (principal); I10 Essential (primary) hypertension; J45.909 Unspecified asthma, uncomplicated; Z88.0 Allergy status to penicillin; Z88.2 Allergy status to sulfonamides; Z88.5 Allergy status to narcotic agent; Z88.8 Allergy status to other drugs, medicaments and biological substances; Z79.899 Other long term (current) drug therapy
CPT/HCPCS: 80053; 81001; 85025; 96360; 99285-25; J7030

== ENCOUNTER 2019-05-21 10:29 | Emergency (ER) | payer OTHER ==
[~2019-05-21] VITALS: Ht 167.6 cm; Wt 84.8 kg
--- OUTSIDE RECORDS SUMMARY | ~2019-05-21 | XMS | Clinical Summary ---
Demographics + + + | Address | [address] | | | [address] | | | [place] [address] | + + + | Home Phone | | + + + | Preferred Language | Unknown | + + + | Marital Status | Single | + + + | Jehovah'S Witness Affiliation | [id number] | + + + | Race | Unknown | + + + | Ethnic Group | Unknown | + + + Author + + + | Author | [facility] | | | and [place] | + + + | Organization | [facility] | | | and [place] [...] Team Providers + +------+ + | Care Choke Reamer Name | Role | Phone | + +------+ + | Hermila Prado NP | PCP | | + +------+ + Allergies + + + +--------+ + | Active Allergy | Reactions | Severity | Noted | Comments | | | | | Date | | + + + +--------+ + | Morphine | | | | | + + + +--------+ + | Penicillins | | | | | + + + +--------+ + Medications + + + +---------+------+------+-------+ | Medication | Sig | Dispensed | Refills | Star | End | Statu | | | | | | t | Date | s | | | | | | Date | | | + + + +---------+------+------+-------+ | gabapentin | Build up to 2 caps | | 0 | 04/2 | | Activ | | (NEURONTIN) 100 mg | by mouth two times | | | 8/20 | | e | | capsule | daily | | | 11 | | | + + + +---------+------+------+-------+ | acetaminophen | as directed | | 0 | 04/2 | | Activ | | (ACETAMINOPHEN EXTRA | | | | 8/20 | | e | | STRENGTH) 500 mg | | | | 11 | | | | tablet | | | | | | | + + + +---------+------+------+-------+ | ranitidine | Take 150 mg by mouth | | 0 | 04/2 | | Activ | | (ZANTAC) 150 mg | 3 times daily. 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 | | + + + + + | Overview: ICD-10 Record update | + + Family History + + +------+ + | Medical History | Relation | Name | Comments | + + +------+ + | Asthma | Father | | | + + +------+ + | Stroke | Neg Hx | | | + + +------+ + [...] | + + Last Filed Vital Signs + + + + | Vital Sign | Reading | Time Taken | + + + + | Blood Pressure | 127/81 | 09/04/20150 PST | + + + + | Pulse | 78 | 09/04/20151119 PST | + + + + | [...] Weight | 87.1 kg (192 lb) | 09/04/20151119 PST | + + + + | Height | 167.6 cm (5' 6") | 09/04/20151119 PST | + + + + | Body Mass Index | 30.99 | 09/04/20151119 PST | + + + + Plan of Treatment + + + + + | Health Maintenance | Due Date | Last Done | Comments | + + + + + | Vaccine: | | | | | Dtap/Tdap/Td (1 - | 0 | | | | Tdap) | | | | + + + + + | Vaccine: Zoster (1 | | | | | of 2) | 1 | | | + + + + + | Cervical Cancer | | 08/21/2006 | | | Screening (Pap) | 2 | | | + + + + + | Breast Cancer | | | | | Screening | 6 | | | + + + + + | Vaccine: Influenza | | | | | (#1) | 9 | | | + + + + + Results Not on filefrom Last 3 Months
--- OUTSIDE RECORDS SUMMARY | ~2019-05-21 | XMS | Encounter Summary ---
Demographics + + + | Address | [address] | | | [place] [address] | + + + | Home Phone | | + + + | Preferred Language | Unknown | + + + | Marital Status | Unknown | + + + | Scientology Affiliation | Unknown | + + + | Race | Unknown | + + + | Ethnic Group | Unknown | + + + Author + + + | Author | [facility] | + + + | Organization | [facility] | + + + | Address | Unknown | + + + | Phone | Unavailable | + + + Care Team Providers + +------+ + | Care Legal Service Specialist Name | Role | Phone | + +------+ + PCP | Unavailable | + +------+ + Encounter Details +--------+ + + + + | Date | Type | Department | Care Team | Description | +--------+ + + + + | 11/10/ | Outside | Neurophysiology | Thomas Ling, | | | 2009 | Referral | EEG at [facility] [address] [place] | | | | Order | [address] | [address] [address] | | | | | Mailcode: CR120 | [place] [address] | | | | | [facility] | [phone] | | | | | [place], [place] | | | | | | [address] | | | | | | [phone] | | | +--------+ + + + [...] Not on filedocumented as of this encounter Procedures + +--------+ + + + | Procedure Name | Priori | Date/Time | Associated Diagnosis | Comments | | | ty | | | | + +--------+ + + + | EEG ROUTINE | Routin | 06/30/2010 | | Results for this | | | e | | | procedure are in the | | | | | | results section. | + +--------+ + + + documented in this encounter Results EEG ROUTINE (06/30/2010) + + | Specimen | + + | | + + + + + | Narrative | Performed At | + + + | Patient Name: Suyapa Santos Date of : 1960 Medical | | | Record Number: [id number] Date of Test: 06/30/2010 Place of | | | Service: [facility] This is a routine EEG in a 50 year | | | old woman with a probable syncope, rule out seizures. Background | | | activity in the awake state contains a posteriorly dominant and | | | symmetrically muydiufxpxk00 Hz alpha rhythm that blocks with eye | | | opening. The background is frequently interrupted by eyelid | | | flutter artifact. There are no significant changes with | | | hyperventilation or intermittent photic stimulation. Critical | | | interpretation: normal awake EEG. No epileptiform discharges or | | | lateralized abnormalities were seen. Alberto Meeks M.D. Dept. | | | Of Neurology ROUTINE EEG | | + + + documented in this encounter Visit Diagnoses Not on filedocumented in this encounter"
--- OUTSIDE RECORDS SUMMARY | ~2019-05-21 | XMS | Clinical Summary ---
Demographics + + + | Address | [address] | | | [place] [address] | + + + | Home Phone | | + + + | Preferred Language | Unknown | + + + | Marital Status | | + + + | Yarsanism Affiliation | 1013 | + + + | Race | Unknown | + + + | Ethnic Group | Unknown | + + + Author + + + | Author | [facility] (Historical as of | | | 04-06-19) | + + + | Organization | [facility] (Historical as of | | | 04-06-19) [...] Team Providers + +------+ + | Care Manager Packaging Name | Role | Phone | + [...] +------+-------+ + | MEDICAID | [place] | [id number] | | | [address] | | | [place] | | | | [place] | | | [place] | | | | [address] | | | DATABASE MANAGER | | | | | + +--------+ [...] Self | [birth year] Home: | [address] | | | al/Fam | | 1 | [phone] [address] [place] [address] | | [phone] | [phone] | + +--------+ +--------+ + +
--- OUTSIDE RECORDS SUMMARY | ~2019-05-21 | XMS | Encounter Summary ---
Demographics + + + | Address | [address] | | | [place] [address] | + + + | Home Phone | | + + + | Preferred Language | Unknown | + + + | Marital Status | Unknown | + + + | Yazidism Affiliation | Unknown | + + + | Race | Unknown | + + + | Ethnic Group | Unknown | + + + Author + + + | Author | [facility] | + + + | Organization | [facility] | + + + | Address | Unknown | + + + | Phone | Unavailable | + + + Care Team Providers + +------+ + | Care Cargo Station Worker Name | Role | Phone | [...] Floor | | | | | | [place], [place] | [place], [place] | | | | | | [address] | [address] | | | | | | Phone: | Phone: | | | | | | [phone] | [phone] | | | | | | Fax: | Fax: | | | | | | [phone] | [phone] | +--------+--------+ + + + + Encounter [...] [facility] | | | | | | [facility] | | | | | | and [place], | | | | | | Building | | | | | | [place], [place] | | | | | | [address] | | | | | | [phone] | | | +--------+ + + + [...] 1960 Medical | | | Record Number: [id number] Date of Test: 11/25/2010 Place of | | | Service: [facility] ROUTINE EEG Database type: | | | This is a routine EEG in a 50-year-old woman with a question of | | | seizures. Charted medications include gabapentin. The awake | | | background with the eyes closed contained a posteriorly dominant and | | | symmetrically distributed 11 Hz alpha rhythm of moderate | | | voltage. This blocks with eye opening. Low voltage fast | | | activity is seen anteriorly. There is an excessive amount of eye | | | movement and muscle artifact. This compromises the interpretation | | | of the recording. During hyperventilation the technologist notes | | | that the patient's head slumped over and her eyes were rapidly | | | twitching. The EEG shows the patient's usual background but with a | | | prominent eye flutter artifact. During intermittent photic | | | stimulation the eye flutter artifact returns. Again there are no EEG | | | changes. Clinical interpretation: this is a normal awake | | | EEG. There were no epileptiform discharges. During the | | | recording the patient had paroxysms of eyelid flutter, on one | | | occasion associated with hyperventilation and on another with photic | | | stimulation. There were no EEG changes associated with these | | | episodes. Alberto Meeks M.D. Dept. Of Neurology | | + + + documented in this encounter Visit Diagnoses Not on filedocumented in this encounter"
--- OUTSIDE RECORDS SUMMARY | ~2019-05-21 | XMS | Encounter Summary ---
Demographics + + + | Address | [address] | | | [place] [address] | + + + | Home Phone | | + + + | Preferred Language | Unknown | + + + | Marital Status | Unknown | + + + | Scientologist Affiliation | Unknown | + + + | Race | Unknown | + + + | Ethnic Group | Unknown | + + + Author + + + | Author | [facility] | + + + | Organization | [facility] | + + + | Address | Unknown | + + + | Phone | Unavailable | + + + Care Team Providers + +------+ + | Care Golf Club Maker Name | Role | Phone | + +------+ + PCP | Unavailable | + +------+ + Encounter Details +--------+ + + + + | Date | Type | Department | Care Team | Description | +--------+ + + + + | 06/30/ | Documentati | Neurology at | Alberto Meeks, | | | 2009 | on | [facility] & | MD [address] | | | | | Healing [address] | [place], [place] | | | | | [address] Mailcode: | [address] | | | | | [facility] | [phone] | | | | | Health and Healing, | | | | | | [facility] | | | | | | [place], [place] | | | | | | [address] | | | | | | [phone] | | | +--------+ + + + [...]
--- OUTSIDE RECORDS SUMMARY | ~2019-05-21 | XMS | Encounter Summary ---
Demographics + + + | Address | [address] | | | [place] [address] | + + + | Home Phone | | + + + | Preferred Language | Unknown | + + + | Marital Status | Unknown | + + + | Baptist Affiliation | Unknown | + + + | Race | Unknown | + + + | Ethnic Group | Unknown | + + + Author + + + | Author | [facility] | + + + | Organization | [facility] | + + + | Address | Unknown | + + + | Phone | Unavailable | + + + Care Team Providers + +------+ + | Care Director Of Reimbursement Name | Role | Phone | + +------+ + PCP | Unavailable | + +------+ + Encounter Details +--------+ + + + + | Date | Type | Department | Care Team | Description | +--------+ + + + + | 11/30/ | Documentati | Neurology at | Alberto Meeks, | | | 2010 | on | [facility] & | MD [address] | | | | | Healing [address] | [place], [place] | | | | | [address] Mailcode: | [address] | | | | | [facility] | [phone] | | | | | Health and Healing, | | | | | | [facility] | | | | | | [place], [place] | | | | | | [address] | | | | | | [phone] | | | +--------+ + + + [...]
--- OUTSIDE RECORDS SUMMARY | ~2019-05-21 | XMS | Clinical Summary ---
Demographics + + + | Address | [address] | | | [place] [address] | + + + | Home Phone [...] Team Providers + +------+ + | Care Test Carrier Name | Role | Phone | + +------+ + PCP | Unavailable | + +------+ + Source Comments ALEXANDRA is fully live on both [facility] Ambulatory and [facility] InPatient.[facility] Allergies Not on File Medications Not on [...]
--- OUTSIDE RECORDS SUMMARY | 2019-05-21 10:34 | XMS ---
PreManage Notification: FAGN COÓLN Security Tick Eradicator Events No recent Security Events currently on file CRITERIA MET - Group Notification - [facility] Guidelines CARE PROVIDERS COTY KINGSLEY Physician Cut Roll Machine Offbearer 03/28/2018-Current PHONE: [phone] Armin Duggan Internal Medicine: Pulmonary Disease 04/27/2018-Current PHONE: Unknown [facility] INPATIENT Primary Care Current PHONE: Unknown Guidelines Source: [facility] Guidelines Date: 04/11/2019 Care Coordination: Currently engaged in mental health services with [facility].\T\nbsp; Please contact [facility] with mental health concerns.\T\nbsp; [place] \T\nbsp; [phone]\T\nbsp; [place]:\T\nbsp; [phone]. Care History Medical/Surgical 05/03/2018 [facility] - Patient has an apt with Dr Duggan to establish on 06/04/18 @ 11:00. - Patient is currently working with [facility]. - CHW has tried to contact patient several times but patient only calls back when something is needed. 03/29/2018 [facility] - Patient is currently established with [facility]. If patient is seen in the ED during business hours. Please contact CHWs at [facility]. Care Recommendation: This patient has [...] providing care. E.D. VISIT COUNT (12 MO.) 6 [facility]. TOTAL 6 NOTE: Visits indicate total known visits. ED/UCC VISIT TRACKING (12 MO.) 05/21/2019 10:31 [facility] [place] TYPE: Emergency COMPLAINT: - SEIZURE 04/12/2019 19:55 [facility] [place] TYPE: Emergency COMPLAINT: - WEAKNESS DIAGNOSES: - Unspecified asthma, uncomplicated - Weakness - Other chcf (current) drug therapy - Allergy status to sulfonamides status - Allergy status to narcotic agent status - Essential (primary) hypertension - Allergy status to other drugs, medicaments and biological substances status - Allergy status to penicillin 04/05/2019 11:16 [facility] [place] TYPE: Emergency COMPLAINT: - SEIZURES DIAGNOSES: - Other chcf (current) drug therapy - Essential (primary) hypertension [...] Allergy status to sulfonamides status - Other chcf (current) drug therapy - Insomnia, unspecified - [...] Allergy status to sulfonamides status - Other manager long term care (current) drug therapy - Anxiety disorder, unspecified [...] status to narcotic agent status - Other chcf (current) drug therapy - Encounter for issue of repeat prescription - Essential (primary) hypertension INPATIENT VISIT TRACKING (12 MO.) No inpatient visits to display in this time frame [email or web address]
[2019-05-21] MEDS ORDERED: ZESTRIL40 MG PO (11:49)
[2019-05-21] MEDS ORDERED: NORVASC5 MG PO (11:49)
== END 2019-05-21 12:00 | disposition home or self-care (01) ==
LOC: ED 10:29
DX: R56.9 Unspecified convulsions (principal); I10 Essential (primary) hypertension; J45.909 Unspecified asthma, uncomplicated; F43.10 Post-traumatic stress disorder, unspecified; Z88.0 Allergy status to penicillin; Z88.2 Allergy status to sulfonamides; Z88.8 Allergy status to other drugs, medicaments and biological substances; Z79.899 Other long term (current) drug therapy
CPT/HCPCS: 99284; J7120

== ENCOUNTER 2019-06-11 10:17 | Emergency (ER) | payer OTHER ==
[~2019-06-11] VITALS: Ht 167.6 cm; Wt 84.8 kg
--- OUTSIDE RECORDS SUMMARY | ~2019-06-11 | XMS | Clinical Summary ---
Demographics + + + | Address | [address] | | | [place] [address] | + + + | Home Phone | | + + + | Preferred Language | Unknown | + + + | Marital Status | Unknown | + + + | Yazidism Affiliation | Unknown | + + + [...] Team Providers + +------+ + | Care Sap Bpc Architect Name | Role | Phone | + +------+ + PCP | Unavailable | + +------+ + Source Comments ALEXANDRA is fully live on both [facility] Ambulatory and [facility] InPatient.[facility] Allergies Not on File Medications Not on file Active Problems Not [...] on file | | + + + + + + + | Job Start Date | Occupation | Industry | + + + + | Not on file | Not on file | Not on file | + + + + + + + + | Travel History | Travel Start | Travel End | + + + + + + | No recent travel history available. | + + Last Filed Vital Signs Not on file Plan of Treatment + + + + + | Health Maintenance | Due Date | Last Done | Comments | + + + + + | Influenza (Flu) | | | | | vaccination (#1) | 9 | | | + + + + + | Pneumococcal | Aged Out | | No longer eligible | | vaccination | | | based on patient's | | | | | age to complete this | | | | | topic | + + + + + Results Not on filefrom Last 3 Months"
--- OUTSIDE RECORDS SUMMARY | ~2019-06-11 | XMS | Encounter Summary ---
Demographics + + + | Address | [address] | | | [place] [address] | + + + | Home Phone | | + + + | Preferred Language | Unknown | + + + | Marital Status | Unknown | + + + | Caodaism Affiliation | Unknown | + + + | Race | Unknown | + + + | Ethnic Group | Unknown | + + + Author + + + | Author | [facility] | + + + | Organization | [facility] | + + + | Address | Unknown | + + + | Phone | Unavailable | + + + Care Team Providers + +------+ + | Care Opera Singer Name | Role | Phone | + +------+ + PCP | Unavailable | + +------+ + Encounter Details +--------+ + + + + | Date | Type | Department | Care Team | Description | +--------+ + + + + | 06/30/ | Documentati | Neurology at | Alberto Meeks, | | | 2009 | on | [facility] Health & | MD [address] | | | | | Healing [address] | [place], [place] | | | | | [address] Mailcode: | [address] | | | | | [facility] | [phone] | | | | | Health and Healing, | | | | | | [facility] | | | | | | [place], [place] | | | | | | [address] | | | | | | [phone] | | | +--------+ + + + + Social History + +-------+ +--------+------+ [...] recent travel history available. | + + documented as of this encounter Plan of Treatment Not on filedocumented as of this encounter Visit Diagnoses Not on filedocumented in this encounter"
--- OUTSIDE RECORDS SUMMARY | ~2019-06-11 | XMS | Clinical Summary ---
Demographics + + + | Address | [address] | | | [place] [address] | + + + | Home Phone | | + + + | Preferred Language | Unknown | + + + | Marital Status | | + + + | Presybeterian Affiliation | 1013 | + + + | Race | Unknown | + + + | Ethnic Group | Unknown | + + + Author + + + | Author | [facility] (Historical as of | | | 04-06-19) | + + + | Organization | [facility] (Historical as of | | | 04-06-19) | + + + | Address | Unknown | + + + | Phone | Unavailable | + + + Support + + +---------+ + | Name | Relationship | Address | Phone | + + +---------+ + | Gregory Boyer | ECON | Unknown | | + + +---------+ + Care Team Providers + +------+ + | Care Woods Warden Name | Role | Phone | + [...] +------+-------+ + | MEDICAID | [place] | [id number] | | | [address] | | | [place] | | | | [place] | | | [place] | | | | [address] | | | [place] | | | | | + +--------+ [...] Self | [birth year] Home: | [address] | | | al/Fam | | 1 | [phone] [address] [place] | | | [address] | | | [phone] | [phone] | + +--------+ +--------+ + +
--- OUTSIDE RECORDS SUMMARY | ~2019-06-11 | XMS | Clinical Summary ---
Demographics + + + | Address | [address] | | | [address] | | | [place] [address] | + + + | Home Phone | | + + + | Preferred Language | Unknown | + + + | Marital Status | Single | + + + | Shinto Affiliation | 1038 | + + + | Race | Unknown | + + + | Ethnic Group | Unknown | + + + Author + + + | Author | [facility] | | | and [place] | + + + | Organization | [facility] | | | and [...] Team Providers + +------+ + | Care Resident Programs Assistant Name | Role | Phone | + [...] + + + + | Overview: TANG [id number] Decision | + + + + + [...]
--- OUTSIDE RECORDS SUMMARY | ~2019-06-11 | XMS | Encounter Summary ---
Demographics + + + | Address | [address] | | | [place] [address] | + + + | Home Phone | | + + + | Preferred Language | Unknown | + + + | Marital Status | Unknown | + + + | Yarsanism Affiliation | Unknown | + + + | Race | Unknown | + + + | Ethnic Group | Unknown | + + + Author + + + | Author | [facility] | + + + | Organization | [facility] | + + + | Address | Unknown | + + + | Phone | Unavailable | + + + Care Team Providers + +------+ + | Care Software Project Engineer Name | Role | Phone | + +------+ + PCP | Unavailable | + +------+ + Encounter Details +--------+ + + + + | Date | Type | Department | Care Team | Description | +--------+ + + + + | 11/30/ | Documentati | Neurology at | Alberto Meeks, | | | 2010 | on | [facility] & | MD [address] | | | | | Healing [address] | [place], [place] | | | | | [address] Mailcode: | [address] | | | | | [facility] | [phone] | | | | | Health and Healing, | | | | | | [facility] | | | | | | [place], [place] | | | | | | [address] | | | | | | [phone] | | | +--------+ + + + [...]
--- OUTSIDE RECORDS SUMMARY | ~2019-06-11 | XMS | Encounter Summary ---
Demographics + + + | Address | [address] | | | [place] [address] | + + + | Home Phone | | + + + | Preferred Language | Unknown | + + + | Marital Status | Unknown | + + + | Synagogue Affiliation | Unknown | + + + | Race | Unknown | + + + | Ethnic Group | Unknown | + + + Author + + + | Author | [facility] | + + + | Organization | [facility] | + + + | Address | Unknown | + + + | Phone | Unavailable | + + + Care Team Providers + +------+ + | Care Steam Bone Press Tender Name | Role | Phone | + +------+ + PCP | Unavailable | + +------+ + Encounter Details +--------+ + + + + | Date | Type | Department | Care Team | Description | +--------+ + + + + | 11/10/ | Outside | Neurophysiology | Thomas Ling, | | | 2009 | Referral | EEG at [facility] [address] | [place] | | | | Order | [address] | [address] | | | | | Mailcode: [address] | [place] [address] | | | | | [facility] | [phone] | | | | | [place], [place] | | | | | | [address] | | | | | | [phone] | | | +--------+ + + + [...] 1960 Medical | | | Record Number: [id number] Date of Test: 06/30/2010 Place of | | | Service: [facility] This is a routine EEG in a 50 year | | | old woman with a probable syncope, rule out seizures. Background | | | activity in the awake state contains a posteriorly dominant and | | | symmetrically [id number] Hz alpha rhythm that blocks with eye | | | opening. The background is frequently interrupted by eyelid flutter | | | artifact. There are no significant changes with hyperventilation or | | | intermittent photic stimulation. Critical interpretation: normal | | | awake EEG. No epileptiform discharges or lateralized abnormalities | | | were seen. Alberto Meeks M.D. Dept. Of Neurology ROUTINE | | | EEG | | + + + documented in this encounter Visit Diagnoses Not on filedocumented in this encounter"
--- OUTSIDE RECORDS SUMMARY | ~2019-06-11 | XMS | Encounter Summary ---
Demographics + + + | Address | [address] | | | [place] [address] | + + + | Home Phone | | + + + | Preferred Language | Unknown | + + + | Marital Status | Unknown | + + + | Taoism Affiliation | Unknown | + + + | Race | Unknown | + + + | Ethnic Group | Unknown | + + + Author + + + | Author | [facility] | + + + | Organization | [facility] | + + + | Address | Unknown | + + + | Phone | Unavailable | + + + Care Team Providers + +------+ + | Care Barrel Plater Name | Role | Phone | + +------+ + PCP | Unavailable | + +------+ + Reason for Referral Diagnostic Testing +--------+--------+ + + + + | Status | Reason | Specialty | Diagnoses / | Referred By | Referred To | | | | | Procedures | Contact | Contact | +--------+--------+ + + + + | Closed | | Clinical | Procedures | Cnl Eeg | Cnl Eeg | | | | Neurophysiolo | EEG | [address] [address] | | | | gy | ROUTINE | [address] | [address] | | | | | | Mailcode: | Mailcode: | | | | | | [facility] | | | | | | for Health | for Health | | | | | | and Healing, | and Healing, | | | | | | Building [address], | [address], | | | | | | 8th Floor | 8th Floor | | | | | | [place], [place] | [place], [place] | | | | | | [address] | [address] | | | | | | Phone: | Phone: | | | | | | [phone] | [phone] | | | | | | Fax: | Fax: | | | | | | [phone] | [phone] | +--------+--------+ + + + + Encounter Details +--------+ + + + + | Date | Type | Department | Care Team | Description | +--------+ + + + + | 11/26/ | Outside | Neurophysiology - | Stephane Esquivel, | | | 2010 | Referral | EEG [address] | DO | | | | Order | [place] Mailcode: [facility] | | | | | | [facility] | | | | | | and [place], | | | | | | Building | | | | | | [place], [place] | | | | | | [address] | | | | | | [phone] | | | +--------+ + + + [...] + | EEG ROUTINE | Routin | 11/25/2010 | | Results for this | | | e | | | procedure are in the | | | | | | results section. | + +--------+ + + + documented in this encounter Results EEG ROUTINE (11/25/2010) + + | Specimen | + + | | + + + + + | Narrative | Performed At | + + + | Patient Name: Suyapa Santos Date of : 1960 Medical | | | Record Number: [id number] Date of Test: 11/25/2010 Place of Service: | | | [facility] ROUTINE EEG Database type: This is a | | | routine EEG in a 50-year-old woman with a question of seizures. | | | Charted medications include gabapentin. The awake background | | | with the eyes closed contained a posteriorly dominant and | | | symmetrically distributed 11 Hz alpha rhythm of moderate voltage. | | | This blocks with eye opening. Low voltage fast activity is seen | | | anteriorly. There is an excessive amount of eye movement and muscle | | | artifact. This compromises the interpretation of the recording. | | | During hyperventilation the technologist notes that the patient's | | | head slumped over and her eyes were rapidly twitching. The EEG | | | shows the patient's usual background but with a prominent eye flutter | | | artifact. During intermittent photic stimulation the eye flutter | | | artifact returns. Again there are no EEG changes. Clinical | | | interpretation: this is a normal awake EEG. There were no | | | epileptiform discharges. During the recording the patient had | | | paroxysms of eyelid flutter, on one occasion associated with | | | hyperventilation and on another with photic stimulation. There were | | | no EEG changes associated with these episodes. Alberto Meeks, | | | [place] Dept. Of Neurology | | + + + documented in this encounter Visit Diagnoses Not on filedocumented in this encounter"
--- OUTSIDE RECORDS SUMMARY | ~2019-06-11 | XMS | Encounter Summary ---
Demographics + + + | Address | [address] | | | [place] [address] | + + + | Home Phone | | + + + | Preferred Language | Unknown | + + + | Marital Status | Unknown | + + + | Orthodox Affiliation | Unknown | + + + | Race | Unknown | + + + | Ethnic Group | Unknown | + + + Author + + + | Author | [facility] | + + + | Organization | [facility] | + + + | Address | Unknown | + + + | Phone | Unavailable | + + + Care Team Providers + +------+ + | Care Process Controller Name | Role | Phone | + +------+ + PCP | Unavailable | + +------+ + Encounter Details +--------+ + + + + | Date | Type | Department | Care Team | Description | +--------+ + + + + | 11/30/ | Documentati | Neurology at | Alberto Meeks, | | | 2010 | on | [facility] Health & | MD [address] | | | | | Healing [address] | [place], [place] | | | | | [address] Mailcode: | [address] | | | | | [facility] | [phone] | | | | | Health and Healing, | | | | | | [facility] | | | | | | [place], [place] | | | | | | [address] | | | | | | [phone] | | | +--------+ + + + [...]
--- OUTSIDE RECORDS SUMMARY | ~2019-06-11 | XMS | Encounter Summary ---
Demographics + + + | Address | [address] | | | [place] [address] | + + + | Home Phone | | + + + | Preferred Language | Unknown | + + + | Marital Status | Unknown | + + + | Mandaen Affiliation | Unknown | + + + | Race | Unknown | + + + | Ethnic Group | Unknown | + + + Author + + + | Author | [facility] | + + + | Organization | [facility] | + + + | Address | Unknown | + + + | Phone | Unavailable | + + + Care Team Providers + +------+ + | Care Insurance And Benefits Clerk Name | Role | Phone | + [...] Floor | | | | | | [place], [place] | [place], [place] | | | | | | [address] | [address] | | | | | | Phone: | Phone: | | | | | | [phone] | [phone] | | | | | | Fax: | Fax: | | | | | | [phone] | [phone] | +--------+--------+ + + + + Encounter [...] [facility] | | | | | | [facility] | | | | | | and [place], | | | | | | Building | | | | | | [place], [place] | | | | | | [address] | | | | | | [phone] | | | +--------+ + + + [...] 1960 Medical | | | Record Number: [id number] Date of Test: 11/25/2010 Place of Service: | | | [facility] ROUTINE EEG Database type: This is a [...]
--- OUTSIDE RECORDS SUMMARY | ~2019-06-11 | XMS | Clinical Summary ---
Demographics + + + | Address | [address] | | | [place] [address] | + + + | Home Phone | | + + + | Preferred Language | Unknown | + + + | Marital Status | Unknown | + + + | Zoroastrianism Affiliation | Unknown | + + + [...] Team Providers + +------+ + | Care Road Consultant Name | Role | Phone | + +------+ + PCP | Unavailable | + +------+ + Source Comments ALEXANDRA is fully live on both [facility] Ambulatory and [facility] InPatient.[facility] Allergies Not on File Medications Not on [...]
--- OUTSIDE RECORDS SUMMARY | ~2019-06-11 | XMS | Clinical Summary ---
Demographics + + + | Address | [address] | | | [place] [address] | + + + | Home Phone | | + + + | Preferred Language | Unknown | + + + | Marital Status | | + + + | Taoism Affiliation | 1013 | + + + | Race | Unknown | + + + | Ethnic Group | Unknown | + + + Author + + + | Author | [facility] (Historical as of | | | 04-06-19) | + + + | Organization | [facility] (Historical as of | | | 04-06-19) [...] Team Providers + +------+ + | Care Rn Primary Care Name | Role | Phone | + [...] +------+-------+ + | MEDICAID | [place] | [id number] | | | [address] | | | N | | | | [place] | | | [place] | | | | [address] | | | GLASS MECHANIC | | | | | + +--------+ [...] Self | [birth year] | Home: | [address] | | | al/Fam | | 1 | [phone] | [address] [place] | [address] | [address] | | | [phone] | [address] | + +--------+ +--------+ + +
--- OUTSIDE RECORDS SUMMARY | ~2019-06-11 | XMS | Encounter Summary ---
Demographics + + + | Address | [address] | | | [place] [address] | + + + | Home Phone | | + + + | Preferred Language | Unknown | + + + | Marital Status | Unknown | + + + | Yarsani Affiliation | Unknown | + + + | Race | Unknown | + + + | Ethnic Group | Unknown | + + + Author + + + | Author | [facility] | + + + | Organization | [facility] | + + + | Address | Unknown | + + + | Phone | Unavailable | + + + Care Team Providers + +------+ + | Care Endoscopy Support Specialist Name | Role | Phone | + +------+ + PCP | Unavailable | + +------+ + Encounter Details +--------+ + + + + | Date | Type | Department | Care Team | Description | +--------+ + + + + | 11/10/ | Outside | Neurophysiology | Thomas Ling, | | | 2009 | Referral | EEG at [facility] [address] | [address] | | | | Order | [address] | [address] | | | | | Mailcode: CR120 | [place] [address] | | | | | [facility] | [phone] | | | | | [place], [place] | | | | | | [address] | | | | | | [phone] | | | +--------+ + + + [...] 1960 Medical | | | Record Number: [id number] Date of Test: 06/30/2010 Place of | | | Service: [facility] This is a routine EEG in a 50 year | | | old woman with a probable syncope, rule out seizures. Background | | | activity in the awake state contains a posteriorly dominant and | | | symmetrically cgarrilgyeb40 Hz alpha rhythm that blocks with eye [...]
--- OUTSIDE RECORDS SUMMARY | ~2019-06-11 | XMS | Encounter Summary ---
Demographics + + + | Address | [address] | | | [place] [address] | + + + | Home Phone | | + + + | Preferred Language | Unknown | + + + | Marital Status | Unknown | + + + | Buddhism Affiliation | Unknown | + + + | Race | Unknown | + + + | Ethnic Group | Unknown | + + + Author + + + | Author | [facility] | + + + | Organization | [facility] | + + + | Address | Unknown | + + + | Phone | Unavailable | + + + Care Team Providers + +------+ + | Care Lead Recreation Assistant Name | Role | Phone | + +------+ + PCP | Unavailable | + +------+ + Encounter Details +--------+ + + + + | Date | Type | Department | Care Team | Description | +--------+ + + + + | 06/30/ | Documentati | Neurology at | Alberto Meeks, | | | 2009 | on | [facility] & | MD [address] | | | | | Healing [address] | [place], [place] | | | | | [address] Mailcode: | [address] | | | | | [facility] | [phone] | | | | | Health and Healing, | | | | | | [facility] | | | | | | [place], [place] | | | | | | [address] | | | | | | [phone] | | | +--------+ + + + [...]
--- OUTSIDE RECORDS SUMMARY | ~2019-06-11 | XMS | Clinical Summary ---
Demographics + + + | Address | [address] | | | [address] | | | [place] [address] | + + + | Home Phone [...] Author | [facility] | | | and [place] | + + + | Organization | [facility] | | | and [...] Team Providers + +------+ + | Care Material Stress Tester Name | Role | Phone | + [...] + + + + | Overview: TANG [id number] Decision | + + + + + [...]
[~2019-06-11 10:17] MED LIST changes: +NORVASC5 MG PO
--- OUTSIDE RECORDS SUMMARY | 2019-06-11 10:20 | XMS ---
PreManage Notification: [employer] Tester Events No recent Security Events currently on file CRITERIA MET - Group Notification - [facility] - Has Care Guidelines - [facility] - 2 Visits in 30 Days CARE PROVIDERS COTY KINGSLEY Physician Wash Worker 03/28/2018-Current PHONE: [phone] Armin Duggan Internal Medicine: Pulmonary Disease 04/27/2018-Current PHONE: Unknown [facility] IN[facility] Primary Care Current PHONE: Unknown Guidelines Source: [facility] Love Balderrama Guidelines Date: 04/11/2019 Care Coordination: Currently engaged in mental health services with [facility].\T\nbsp; Please contact [facility] with mental health concerns.\T\nbsp; [place]/Shadi Natty: \T\nbsp; [phone]\T\nbsp; [place]:\T\nbsp; [phone]. Care History Medical/Surgical 05/21/2019 [facility] - PATIENT HAS AN APT TO ESTABLISH CARE WITH DR CENTENO ON 06/06/19. 05/03/2018 [facility] - Patient has an apt with Dr Duggan to establish on 06/04/18 @ 11:00. - Patient is currently working with [facility]. - [facility] has tried to contact patient several times but patient only calls back when something is needed. 03/29/2018 [facility] - Patient is currently established with [facility]. If patient is seen in the ED during business hours. Please contact CHWs at [facility]. Care Recommendation: This patient has [...] providing care. E.D. VISIT COUNT (12 MO.) 7 [facility]. TOTAL 7 NOTE: Visits indicate total known visits. ED/UCC VISIT TRACKING (12 MO.) 06/11/2019 10:18 [facility] [place] TYPE: Emergency COMPLAINT: - SEIZURE 05/21/2019 10:31 [facility] [place] TYPE: Emergency COMPLAINT: - SEIZURE DIAGNOSES: - Allergy status to oth drug/meds/biol subst status - Other long lines operator (current) drug therapy - Allergy status to penicillin - Post-traumatic stress disorder, unspecified - Essential (primary) hypertension - Unspecified convulsions - Unspecified asthma, uncomplicated - Allergy status to sulfonamides status 04/12/2019 19:55 [facility] [place] TYPE: Emergency COMPLAINT: - WEAKNESS DIAGNOSES: - Unspecified asthma, uncomplicated - Weakness - Other long lines operator (current) drug therapy - Allergy status to sulfonamides status - Allergy status to narcotic agent status - Essential (primary) hypertension - Allergy status to oth drug/meds/biol subst status - Allergy status to penicillin 04/05/2019 11:16 [facility] [place] TYPE: Emergency COMPLAINT: - SEIZURES DIAGNOSES: - Other fdc (current) drug therapy - Essential (primary) hypertension - Allergy status to sulfonamides status - Allergy status to oth drug/meds/biol subst status - Unspecified convulsions - Allergy status to narcotic agent status - Allergy status to penicillin 10/02/2018 16:07 [facility] [place] TYPE: Emergency COMPLAINT: - MEDICAL CLEARANCE DIAGNOSES: - Essential (primary) hypertension - Allergy status to other antibiotic agents status - Allergy status to sulfonamides status - Other fdc (current) drug therapy - Insomnia, unspecified - Allergy status to narcotic agent status - Post-traumatic stress disorder, unspecified - Allergy status to penicillin - Unspecified asthma, uncomplicated 09/01/2018 13:21 [facility] [place] TYPE: Emergency COMPLAINT: - MEDICAL CLERANCE DIAGNOSES: - Unsp behavrl synd assoc w physiol disturb and physcl factors - Unspecified asthma, uncomplicated - Allergy status to oth drug/meds/biol subst status - Allergy status to penicillin - Post-traumatic stress disorder, unspecified - Essential (primary) hypertension - Allergy status to narcotic agent status - Delusional disorders - Suicidal ideations - Allergy status to sulfonamides status - Other fdc (current) drug therapy - Anxiety disorder, unspecified - Suicide attempt, initial encounter 08/21/2018 09:[address] [facility] [place] TYPE: Emergency COMPLAINT: - SEIZURE/MED CHECK DIAGNOSES: - Post-traumatic stress disorder, unspecified - Allergy status to penicillin - Allergy status to sulfonamides status - Allergy status to oth drug/meds/biol subst status - Unspecified asthma, uncomplicated - Unspecified convulsions - Allergy status to narcotic agent status - Other long lines operator (current) drug therapy - Encounter for issue of repeat prescription - Essential (primary) hypertension INPATIENT VISIT TRACKING (12 MO.) No inpatient visits to display in this time frame [email or web address]
== END 2019-06-11 11:50 | disposition home or self-care (01) ==
LOC: ED 10:17
DX: S13.9XXA Sprain of joints and ligaments of unspecified parts of neck, initial encounter (principal); I10 Essential (primary) hypertension; Z88.0 Allergy status to penicillin; Z88.2 Allergy status to sulfonamides; Z88.5 Allergy status to narcotic agent; Z88.8 Allergy status to other drugs, medicaments and biological substances; Z88.1 Allergy status to other antibiotic agents; Z79.899 Other long term (current) drug therapy; W18.30XA Fall on same level, unspecified, initial encounter
CPT/HCPCS: 72040; 99283

== ENCOUNTER 2019-10-09 20:41 | Emergency (ER) | payer OTHER ==
[~2019-10-09] VITALS: Ht 167.6 cm; Wt 84.8 kg
--- OUTSIDE RECORDS SUMMARY | 2019-10-09 20:44 | XMS ---
PreManage Notification: FANG COLÓN Security Senior Financial Events No recent Security Events currently on file CRITERIA MET - Group Notification - [facility] Guidelines CARE PROVIDERS COTY KINGSLEY Physician Bobtailer 03/28/2018-Current PHONE: [phone] Armin Duggan Internal Medicine: Pulmonary Disease 04/27/2018-Current PHONE: Unknown [facility] Primary Care Current PHONE: Unknown Guidelines Source: [facility] Guidelines Date: 04/11/2019 Care Coordination: Currently engaged in mental health services with [facility].\T\nbsp; Please contact [facility] with mental health concerns.\T\nbsp; Viky/[place]: \T\nbsp; [phone]\T\nbsp; Kale:\T\nbsp; [phone]. Care History Medical/Surgical 05/21/2019 [facility] - PATIENT HAS AN APT TO ESTABLISH CARE WITH DR CENTENO ON 06/06/19. 05/03/2018 [facility] - Patient has an apt with Dr Duggan to establish on 06/04/18 @ 11:00. - Patient is currently working with [facility]. - CHW has tried to contact patient several times but patient only calls back when something is needed. 03/29/2018 [facility] - Patient is currently established with [facility]. If patient is seen in the ED during business hours. Please contact CHWs at [facility]. Care Recommendation: This patient has had [...] providing care. E.D. VISIT COUNT (12 MO.) 5 [facility]. TOTAL 5 NOTE: Visits indicate total known visits. ED/UCC VISIT TRACKING (12 MO.) 10/09/2019 20:42 [facility] [place] TYPE: Emergency COMPLAINT: - SEIZURE/NECK AND BACK PAIN 06/11/2019 10:18 [facility] [place] TYPE: Emergency COMPLAINT: - SEIZURE DIAGNOSES: - Sprain of joints and ligaments of unsp parts of neck, init - Allergy status to penicillin - Essential (primary) hypertension - Allergy status to other antibiotic agents status - Allergy status to oth drug/meds/biol subst status - Allergy status to narcotic agent status - Allergy status to sulfonamides status - Fall on same level, unspecified, initial encounter - Cervicalgia - Other nursing home (current) drug therapy 05/21/2019 10:31 [facility] [place] TYPE: Emergency COMPLAINT: - SEIZURE DIAGNOSES: - Allergy status to oth drug/meds/biol subst status - Other supervisor intermediates (current) drug therapy - Allergy status to penicillin - Post-traumatic stress disorder, unspecified - Essential (primary) hypertension - Unspecified convulsions - Unspecified asthma, uncomplicated - Allergy status to sulfonamides status 04/12/2019 19:55 [facility] [place] TYPE: Emergency COMPLAINT: - WEAKNESS DIAGNOSES: - Unspecified asthma, uncomplicated - Weakness - Other supervisor intermediates (current) drug therapy - Allergy status to sulfonamides status - Allergy status to narcotic agent status - Essential (primary) hypertension - Allergy status to oth drug/meds/biol subst status - Allergy status to penicillin 04/05/2019 11:16 [facility] [place] TYPE: Emergency COMPLAINT: - SEIZURES DIAGNOSES: - Other supervisor intermediates (current) drug therapy - Essential (primary) hypertension - Allergy status to sulfonamides status - Allergy status to oth drug/meds/biol subst status - Unspecified convulsions - Allergy status to narcotic agent status - Allergy status to penicillin INPATIENT VISIT TRACKING (12 MO.) No inpatient visits to display in this time frame [email or web address]
== END 2019-10-09 23:18 | disposition home or self-care (01) ==
LOC: ED 20:41
DX: G40.909 Epilepsy, unspecified, not intractable, without status epilepticus (principal); S06.0X9A Concussion with loss of consciousness of unspecified duration, initial encounter; S16.1XXA Strain of muscle, fascia and tendon at neck level, initial encounter; W22.8XXA Striking against or struck by other objects, initial encounter; I10 Essential (primary) hypertension; J45.909 Unspecified asthma, uncomplicated; F43.10 Post-traumatic stress disorder, unspecified; Z88.8 Allergy status to other drugs, medicaments and biological substances; Z88.0 Allergy status to penicillin; Z88.2 Allergy status to sulfonamides; Z88.5 Allergy status to narcotic agent; Z79.899 Other long term (current) drug therapy
CPT/HCPCS: 70450; 72125; 99284-25

== ENCOUNTER 2019-10-14 21:50 | Emergency (ER) | payer OTHER ==
[~2019-10-14] VITALS: Ht 167.6 cm; Wt 84.8 kg
--- OUTSIDE RECORDS SUMMARY | 2019-10-14 21:54 | XMS ---
PreManage Notification: FANG COLÓN Security Customer Acquisition Specialist Events No recent Security Events currently on file CRITERIA MET - Group Notification - [facility] - Has Care Guidelines - [facility] - 2 Visits in 30 Days CARE PROVIDERS COTY KINGSLEY Physician Office Rep 03/28/2018-Current PHONE: [phone] AARON CENTENO Internal Medicine 10/10/2019-Current PHONE: [phone] Armin Duggan Internal Medicine: Pulmonary Disease 04/27/2018-Current PHONE: Unknown [facility] INPATIENT Primary Care Current PHONE: Unknown Guidelines Source: [email or web address] [place] Guidelines Date: 04/11/2019 Care Coordination: Currently engaged in mental health services with [facility].\T\nbsp; Please contact [facility] with mental health concerns.\T\nbsp; Viky/[place]: \T\nbsp; [phone]\T\nbsp; K[place]:\T\nbsp; [phone]. Care History Medical/Surgical 10/10/2019 [facility] Phone number [phone] is for [place] [facility].\T\nbsp; Clinic phone number [phone] no longer active.\T\nbsp; 05/21/2019 [facility] - PATIENT HAS AN APT TO ESTABLISH CARE WITH DR CENTENO ON 06/06/19. 05/03/2018 [facility] - Patient has an apt with Dr Duggan to establish on 06/04/18 @ 11:00. - Patient is currently working with [facility]. - CHW has tried to contact patient several times but patient only calls back when something is needed. E.D. VISIT COUNT (12 MO.) 6 [facility]. TOTAL 6 NOTE: Visits indicate total known visits. ED/UCC VISIT TRACKING (12 MO.) 10/14/2019 21:51 [facility] [place] TYPE: Emergency COMPLAINT: - HEAD PAIN 10/09/2019 20:42 [facility] [place] TYPE: Emergency COMPLAINT: - SEIZURE/NECK AND BACK PAIN DIAGNOSES: - Other cytometry technologist (current) drug therapy - Allergy status to penicillin - Essential (primary) hypertension - Unspecified asthma, uncomplicated - Epilepsy, unsp, not intractable, without status epilepticus - Allergy status to narcotic agent status - Post-traumatic stress disorder, unspecified - Striking against or struck by other objects, init encntr - Strain of muscle, fascia and tendon at neck level, init - Allergy status to sulfonamides status - Allergy status to oth drug/meds/biol subst status - Concussion w loss of consciousness of unsp duration, init 06/11/2019 10:18 [facility] [place] TYPE: Emergency [...] unspecified, initial encounter - Cervicalgia - Other cytometry technologist (current) drug therapy 05/21/2019 10:31 [facility] [place] TYPE: Emergency COMPLAINT: - SEIZURE DIAGNOSES: - Allergy status to oth drug/meds/biol subst status - Other residential (current) drug therapy - Allergy status to penicillin - Post-traumatic stress disorder, unspecified - Essential (primary) hypertension - Unspecified convulsions - Unspecified asthma, uncomplicated - Allergy status to sulfonamides status 04/12/2019 19:55 [facility] [place] TYPE: Emergency COMPLAINT: - WEAKNESS DIAGNOSES: - Unspecified asthma, uncomplicated - Weakness - Other cytometry technologist (current) drug therapy - Allergy status to sulfonamides status - Allergy status to narcotic agent status - Essential (primary) hypertension - Allergy status to oth drug/meds/biol subst status - Allergy status to penicillin 04/05/2019 11:[address] [facility] [place] TYPE: Emergency COMPLAINT: - SEIZURES DIAGNOSES: - Other cytometry technologist (current) drug therapy - Essential (primary) hypertension - Allergy status to sulfonamides status - Allergy status to oth drug/meds/biol subst status - Unspecified convulsions - Allergy status to narcotic agent status - Allergy status to penicillin INPATIENT VISIT TRACKING (12 MO.) No inpatient visits to display in this time frame [email or web address]
[2019-10-14] MEDS ORDERED: DICLOFENAC SODI75 MG PO (22:42)
== END 2019-10-14 22:51 | disposition home or self-care (01) ==
LOC: ED 21:50
DX: S16.1XXA Strain of muscle, fascia and tendon at neck level, initial encounter (principal); W19.XXXA Unspecified fall, initial encounter; I10 Essential (primary) hypertension; F43.10 Post-traumatic stress disorder, unspecified; Z88.0 Allergy status to penicillin; Z88.2 Allergy status to sulfonamides; Z88.5 Allergy status to narcotic agent; Z88.8 Allergy status to other drugs, medicaments and biological substances; Z79.899 Other long term (current) drug therapy
CPT/HCPCS: 99283

== ENCOUNTER 2020-06-11 05:30 | Day surgery (SDC) | payer OTHER ==
[~2020-06-11] VITALS: Ht 167.6 cm; Wt 90.9 kg
[~2020-06-11 05:30] MED LIST changes: +DICLOFENAC SODI75 MG PO
--- NOTE | 2020-06-11 08:12 | NUR ---
06/11/20 0812 Sheets,Yuridia 0805 PT ARRIVED TO PACU ON 6L VIA MASK, RESP EVEN AND UNLABROED. PT NONAROUSABLE TO TACTILE STIMULI. BP DECREASED AND FLUIDS INCREASED PER HANDLE LATHE OPERATOR. ORAL AIRWAY IN PLACE.
--- NOTE | 2020-06-11 08:39 | NUR ---
PATIENT IS GIVEN HER PHONE TO MAKE PHONE CALLS. CALL LIGHT IS WITHIN REACH. ICED WATER IS GIVEN. PATIENT DENIES ADDITIONAL NEEDS AT THIS TIME.
[2020-06-11] MEDS ORDERED: ADVIL200 MG PO (08:50)
--- NOTE | 2020-06-11 09:00 | NUR ---
PATIENT PUSHES THE CALL LIGHT AND ASKS FOR HER PILLOW TO BE ADJUSTED. THIS IS DONE.
--- NOTE | 2020-06-11 09:41 | NUR ---
PATIENT IS UP TO THE BATHROOM WITH MY STANDBY. SHE AMBULATES WELL, VOIDS 100 ML OF BLOODY URINE AND AMBULATES BACK TO HER ROOM. SHE IS CALLING HER RIDE TO COME GET HER.
--- NOTE | 2020-06-12 10:13 | OR ---
[address] [address] Signed DATE OF OPERATION: 06/11/2020 SURGEON: Jatin Mariano MD Patient of Dr. Mariano. PREOPERATIVE DIAGNOSIS: Postmenopausal bleeding. POSTOPERATIVE DIAGNOSIS: Postmenopausal bleeding. PROCEDURE: Hysteroscopy with biopsy. ANESTHESIA: General. ESTIMATED BLOOD LOSS: 5 mL. SPECIMENS: Endometrial sample. DRAINS: None. FINDINGS: Normal-appearing slightly atrophic vagina. Cervix small. Uterus normal size and shape. The uterine cavity also appeared normal in size and shape with both ostia identified. The endometrium appeared atrophic. There were no polyps, no masses, no lesions. COMPLICATIONS: None. DESCRIPTION OF PROCEDURE: The patient was brought into the operating room, placed in supine position. After adequate general anesthesia was obtained, was placed in the dorsal lithotomy position, prepped and draped in usual sterile fashion. A speculum was placed in the vagina and the anterior lip of the cervix was grasped with an Allis clamp. The cervix was serially Electronically Signed By: JATIN MARIANO MD 06/12/20 1013 PATIENT NAME: FANG COLÓN OPERATIVE REPORT DATE OF : 62 REPORT #: [id number] PHYSICIAN: JATIN MARIANO MD PCP: EDWARD CENTENO DO REPORT IS CONFIDENTIAL AND NOT TO BE RELEASED WITHOUT AUTHORIZATION [address] [address] Signed dilated to a #7 [place] dilator and then the hysteroscope with video attachment placed in the cervical os and entered the uterine cavity under direct visualization. Sterile saline was used as distending medium as the hysteroscope was inserted and during the procedure, the above findings were noted. The MyoSure Lite was then placed through the operative hysteroscope and sample of the endometrium obtained in a 360-degree fashion, both in the upper portion of the uterus and the upper portion of the endocervical canal. Good hemostasis was noted. At this point, all instruments were removed. The cervix observed and noted to have good hemostasis. The procedure was terminated. The patient tolerated the procedure well, went to recovery room in good condition. The sponge and instrument count were correct at the end of procedure. The uterine sampling was sent to Pathology for identification. MD TOSHIA Cody/MODL /[id number] cc: Edward Centeno DO Copies: EDWARD CENTENO DO ~ Electronically Signed By: JATIN MARIANO MD 06/12/20 1013 PATIENT NAME: FANG COLÓN OPERATIVE REPORT DATE OF : 62 REPORT #: [id number] PHYSICIAN: JATIN MARIANO MD PCP: EDWARD CENTENO DO REPORT IS CONFIDENTIAL AND NOT TO BE RELEASED WITHOUT AUTHORIZATION
--- NOTE | 2020-06-12 18:04 | PATH ---
[facility] [address] [place], [place] [address] Signed SPECIMEN(S): A ENDOMETRIAL BIOPSY SPECIMEN SOURCE: A. ENDOMETRIAL BIOPSY CLINICAL HISTORY: Hysteroscopy DC. Postmenopausal bleeding. FINAL PATHOLOGIC DIAGNOSIS: Endometrium, curettage: - Disordered proliferative endometrium and fragments suggestive of benign endometrial polyp. - Multiple fragments of smooth muscle suggestive of leiomyoma. - Negative for hyperplasia or malignancy. NAL:cml:C2NR MICROSCOPIC EXAMINATION: Histologic sections of all submitted blocks are examined by light microscopy. These findings, together with the gross examination, support the pathologic diagnosis. GROSS DESCRIPTION: The specimen, labeled "TH, #1 ," and designated on the requisition "endometrium," is received in formalin and consists of flynn-brown soft tissue fragments with possible mucus and clot material measuring 2.6 x 1.7 x 0.6 cm in aggregate. Specimen is filtered and entirely submitted in cassette (A1). AT (under the direct supervision of a pathologist) The Gross Description was prepared using a voice recognition system. The report was reviewed for accuracy; however, sound-alike word errors, addition and/or deletions may occur. If there is any question about this report, please contact Client Services. PERFORMING LABORATORY: The technical component was performed by [facility], [address] [place] [address] (Monitoring Manager: Christie Forde MD; CLIA# [id number]). [facility], [address] [address] (CLIA# [id number]). Diagnostician: Sonia James MD PATIENT NAME: FANG COLÓN PATHOLOGY DATE OF : 62 REPORT #: [id number] PHYSICIAN: TIMOTHY PATHOLOGY PCP: AARON CENTENO DO REPORT IS CONFIDENTIAL AND NOT TO BE RELEASED WITHOUT AUTHORIZATION [address] [address] Signed Pathologist Electronically Signed 06/12/2020 Copies: ~ PATIENT NAME: FANG COLÓN PATHOLOGY DATE OF : 62 REPORT #: [id number] PHYSICIAN: TIMOTHY PATHOLOGY PCP: AARON CENTENO DO REPORT IS CONFIDENTIAL AND NOT TO BE RELEASED WITHOUT AUTHORIZATION
== END 2020-06-11 09:55 | disposition home or self-care (01) ==
LOC: OPS 05:30 → DS 05:30 → OPS 09:55
PROVIDERS: ATTEND General Practice
PROC: 0UDB8ZX Extraction of Endometrium, Via Natural or Artificial Opening Endoscopic, Diagnostic (ICD-10-PCS; principal; 2020-06-11 06:45)
DX: N95.0 Postmenopausal bleeding (principal); F43.10 Post-traumatic stress disorder, unspecified; I10 Essential (primary) hypertension; J45.909 Unspecified asthma, uncomplicated; Z88.5 Allergy status to narcotic agent; Z79.899 Other long term (current) drug therapy; Z88.0 Allergy status to penicillin; Z88.8 Allergy status to other drugs, medicaments and biological substances; Z91.041 Radiographic dye allergy status; Z88.1 Allergy status to other antibiotic agents
CPT/HCPCS: J1100; J1885; J2001; J2405; J2704; J3010; J7121

== ENCOUNTER 2020-10-29 17:32 | Inpatient (IN) | payer OTHER ==
[~2020-10-29] VITALS: Ht 167.6 cm; Wt 87.9 kg
[~2020-10-29 17:32] MED LIST changes: +ADVIL200 MG PO
--- OUTSIDE RECORDS SUMMARY | 2020-10-29 17:36 | XMS ---
PreManage Notification: FANG COLÓN Security Turbo Electric Operator Events No recent Security Events currently on file CRITERIA MET - Group Notification - [facility] CARE PROVIDERS COTY KINGSLEY Physician Contact Lens Blocker And Cutter 03/28/2018-Current PHONE: [phone] AARON CENTENO Internal Medicine 10/10/2019-Current PHONE: [phone] Venkat Rodas Church Official/Carpenter 09/21/2020-Current PHONE: [phone] SHAI EGE Internal Medicine: Pulmonary Disease 04/27/2018-Current PHONE: Unknown [facility] Date: 10/15/2019 Care Coordination: Currently engaged in individual therapy, medication management and case management with [facility].\T\nbsp; Please contact [facility] for any mental health concerns.\T\nbsp; Viky/[place]:\T\nbsp; [phone]\T\nbsp;\T\ nbsp; [facility] Crisis: [phone]. 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 Centeno on 10/24/2019.\T\nbsp; 10/10/2019 [facility] Phone number [phone] is for [place] [facility] [facility].\T\nbsp; Clinic phone number [phone] no longer active.\T\nbsp; 05/21/2019 [facility] - PATIENT HAS AN APT TO ESTABLISH CARE WITH DR CENTENO ON 06/06/19. E.D. VISIT COUNT (12 MO.) 1 [facility]. TOTAL 1 NOTE: Visits indicate total known visits. ED/UCC VISIT TRACKING (12 MO.) 10/29/2020 17:[address] [facility] [place] TYPE: Emergency COMPLAINT: - [facility] INPATIENT VISIT TRACKING (12 MO.) No inpatient visits to display in this time frame [email or web address]
--- NOTE | 2020-10-29 19:50 | NUR ---
RECEIVED TELEPHONE REPORT FROM ED RN BILL, QUESTIONS ANSWERED. AWITING pt'S ARRIVAL TO THE FLOOR.
--- NOTE | 2020-10-29 20:10 | NUR ---
IN TO ASST RNs WITH PT TRANSFER TO [facility]
--- NOTE | 2020-10-29 21:10 | NUR ---
PT ARRIVED TO [facility] FLOOR AT 2009 VIA STRETCHER. ORIENTED PT TO CALL LIGHT AND ROOM. COMPLETED ADMISSION HX WITH PT. PT STATES THE PAIN MEDS SHE GOT IN THE ER ARE WORKING GREAT. SHE DENIES FURTHER NEEDS AT THIS TIME, CALL LIGHT IS CLOSE.
--- NOTE | 2020-10-29 21:32 | NUR ---
IN ROOM TO START IV FLUIDS. DR DOHERTY IS IN THE ROOM WITH THE PT AT THIS TIME. CALL LIGHT IS CLOSE.
--- NOTE | 2020-10-29 22:03 | NUR ---
IN ROOM TO START BOLUS WITH 40KCL, ALSO BROUGHT PT A HOME HOUSEKEEPER FOR HER PHONE. SHE DENIES FURTHER NEEDS AT THIS TIME. CALL LIGHT IS CLOSE.
--- NOTE | 2020-10-29 22:30 | NUR ---
ASSESSMENT COMPLETE, pt REPORTS TOLERABLE 5/10 PAIN IN RIGHT HIP. RECENTLY MEDICATED BY SILICA FILTER OPERATORALEXANDRIA LOCO. VSS, pt A/OX4. GRANT IN PLACE, INTACT. IV BOLUS INFUSING PER MD ORDERS, SITE WNL. pt LAYING ON HER BACK. NO ADDITIONAL NEEDS, CALL LIGHT IN REACH.
--- NOTE | 2020-10-29 22:39 | NUR ---
PT CALLED WITH 8/10 HIP PAIN, ADMINISTERED 1MG IV DILAUDID SLOW PUSH. SHE DENIES FURTHER NEEDS AT THIS TIME. CALL LIGHT IS WITHIN REACH.
--- NOTE | 2020-10-29 23:41 | NUR ---
pt REPORTS SHE HAS A HISTORY OF SEIZURES, BUT IS NOT CURRENTLY ON ANY MEDICATIONS. pt STATES, "THEY HAVN'T FOUND ME ANY MEDICATION THAT WORKS FOR MY TYPE OF SEIZURE". SEIZURE PRECAUTIONS IN PLACE BY JOYCE TAVERAS. CALL LIGHT IN REACH.
--- NOTE | 2020-10-30 00:57 | NUR ---
IV PUMP BEEPING, DISTAL OCCLUSION NOTED. IV FLUIDS RESUMED, NO NEEDS AT THIS TIME. CALL LIGHT IN REACH.
--- NOTE | 2020-10-30 01:34 | NUR ---
VSS, PRN PAIN MEDICATION GIVEN (SEE EMAR) FOR 5-6/10 PAIN IN RIGHT HIP. CATHETER ALSO EMPTIED, NO FURTHER NEEDS. CALL LIGHT IN REACH, BOARD UPDATED.
--- NOTE | 2020-10-30 02:31 | NUR ---
PT IS AWAKE IN BED, STATES HER PAIN IS WELL CONTROLLED AT THIS TIME. PT DENIES NEEDS AND CALL LIGHT IS CLOSE.
--- NOTE | 2020-10-30 02:44 | NUR ---
ROUNDED ON pt, pt AWAKE AND REPORTS PAIN IMPROVED AFTER PAIN MEDICATION. ABLE TO SHIFT SLIGHTLY IN BED. FLUIDS REMAIN INFUSING PER MD ORDERS, SITE WNL. NO FURTHER NEEDS, CALL LIGHT IN REACH.
--- NOTE | 2020-10-30 04:40 | NUR ---
IN TO GET PT VITALS, BOOSTED, GRANT EMPTIED AT THIS TIME
--- NOTE | 2020-10-30 04:48 | NUR ---
pt REPORTING 8/10 PAIN, CRYING IN BED AND STATES, "I DON'T WANNA BE THOUGHT OF A DRUG SEEKER". EDUCATION PROVIDED ON PAIN CONTROL, PRN PAIN MEDICAITON GIVEN, SEE EMAR. BRISK BLOOD RETURN NOTED, IV SITE WNL. pt BOOSTED AND REPOSITIONED IN BED, TOLERATED WELL. CATHETER PATENT AND DRAINING WNL. NO FURTHER NEEDS, CALL LIGHT IN REACH.
--- NOTE | 2020-10-30 06:45 | NUR ---
IN TO ADJ PT WITH DRAW SHEET, PULLED PT TO LEFT SIDE SLIGHTLY
--- NOTE | 2020-10-30 07:05 | NUR ---
BEDSIDE HANDOFF REPORT RECEIVED FROM VICE PRESIDENT OF ENGINEERING RN. PT RESTING IN BED, REPOSITIONED. PT DENIES OTHER NEEDS AT THIS TIME.
--- NOTE | 2020-10-30 07:33 | NUR ---
prn pain medication given for 6/10 generalized pain to right hip. iv site wnl, saline locked at this time. dayshift cnas completing wipedown. pt reports allergy to betadine, allergy updated to allergy list.
--- NOTE | 2020-10-30 07:40 | NUR ---
PT TO DAYSURGEY WITH ALEXANDRIA PEÑA.
--- NOTE | 2020-10-30 09:20 | NUR ---
PATIENT IN OR. WILL CHECK BACK LATER.
--- NOTE | 2020-10-30 11:30 | NUR ---
10/30/20 1130 Dianna Degroot PT ARRIVES TO PACU WITH ORAL AIRWAY IN PLACE. NONRESPONSIVE TO STIMULI
--- NOTE | 2020-10-30 11:46 | NUR ---
PT TAKEN TO SURGERY, FRIEND CASEY WAITING IN RM. PT HAS NO ONE ELSE TO LOOK AFTER PT AND WILL WAIT IN RM FOR PT TO RETURN FROM PACU. WILL FOLLOW PT NEEDED
--- NOTE | 2020-10-30 13:00 | NUR ---
PT ARRIVED FROM PACU. PT DROWSY BUT ORTIENTED. PT ON 2L NC, LUNG SOUNDS CLEAR, DENIES SOB. PT DENIES PAIN. TRANEXAMIC ACID INFUSING. RIGHT HIP WITH MOOSE, CDI. CRYOCUFF AND SCDS IN PLACE. CMS INTACT, WITHOUT EDEMA. BOWEL TONES ACTIVE, DENIES NAUSEA, PROVIDED WITH CLEAR LIQUID DIET. GRANT CATH DRAINING YELLOW URINE.
--- NOTE | 2020-10-30 14:05 | NUR ---
PT WORKING WITH Trice
--- NOTE | 2020-10-30 15:09 | NUR ---
PATIENT UP TO AMBULATE IN HALLWAY WITH PHYSICAL THERAPY. PATIENT TOLERATED ENTIRE LENGTH OF HALLWAY AND BACK TO HER ROOM. PATIENT IN CHAIR, ICE APPLIED TO HIP, PATIENT ON ROOM AIR AT THIS TIME AND 93-95% CALL LIGHT IN WITHIN REACH.
--- NOTE | 2020-10-30 15:14 | NUR ---
MED REC COMPLETE
--- NOTE | 2020-10-30 15:30 | NUR ---
PT SITTING IN CHAIR. PT CONTINUES TO RATE PAIN 0/10. PT ON ROOM AIR, O2 SATS >90%. PT TOLERATING CLEAR LIQUID DIET, ADVANCED TO REGULAR DIET. MOOSE DRESSING, CDI. MEDICATIONS GIVEN PER EMAR. PT DENIES OTHER NEEDS AT THIS TIME.
--- NOTE | 2020-10-30 16:13 | NUR ---
XRAY WAS NOT COMPLETED IN PACU PER ORDER, CALLED DR. ANGUIANO AND VERIFIED IF HE STILL WANTED XRAY COMPLETED, VERIFIED. XRAY CALLED AND AT BEDSIDE.
--- NOTE | 2020-10-30 17:58 | NUR ---
PT WENT FOR BIPOLAR HIP ARTHROPLASTY TODAY. PT ON ROOM AIR, LUNG SOUNDS CLEAR. PT PAIN WELL CONTROLLED WITH SCHEDULED PAIN MEDICATION. PT WALKED WITH P.T. IN AJ, DID WELL. IV FLUIDS DISCONTINUED AT PT IS EATING AND DRINKING WELL. MOOSE DRESSING CDI. CRYOCUFF AND SCDS IN PLACE. GRANT CATH WITH QS URINE.
--- NOTE | 2020-10-30 19:10 | NUR ---
PATIENT AWAKE IN BED. VITALS AND I&OS CHARTED. CRYO AND ICEW WATER REFILLED. CALL LIGHT IN REACH, NO OTHER NEEDS AT THIS TIME
--- NOTE | 2020-10-30 19:38 | NUR ---
pt cwake, alert and oriented,not as anxious, hyperverbal, easily redirected. On room air, CPOX in place, sats WNL, R hip MOOSE dressing intact, edema to hip, cryocuff in place, scds in place. good CMS. 2 SL patent. medicated with scheduled Toradol per 12/28 R hip pain, tolerating diet and fluids well. IS at bedside
--- NOTE | 2020-10-30 21:07 | NUR ---
MOTOR PATROL OPERATOR ROUNDING NOTE. PT RESTING IN BED. UTILIZED CALL LIGHT, INQUIRES IF IV SITE IS WNL. IV SL WITH ORANGE CAP AT END, APPEARS WNL. PT DENIES FURTHER QUESTIONS, CONCERNS, OR NEEDS AT THIS TIEM. CALL LIGHT IN REACH. WHITE BOARD UDPATED.
--- NOTE | 2020-10-30 22:11 | NUR ---
Watching tv, 2/10 R hip pain, medicated with scheduled Tylenol and ultram
--- NOTE | 2020-10-31 00:44 | NUR ---
Awakes easily, genet hose and heelprotectors applied at this time, scds in place, f/c patent, sl patent, tolerating liquids well. MOOSE dressing R hip patent
--- NOTE | 2020-10-31 02:14 | NUR ---
PT AWAKE, C/O 5/10 R HIP PAIN, MEDICATED WITH SCHEDULED ULTRAM 50MG PO AND TORADOL 30MG IV. SL PATENT. COOP WITH ASSESSMENT. TOLERATING LIQUIDS WELL,
--- NOTE | 2020-10-31 05:21 | NUR ---
Pt has slept off and on this shift, on room air. R hip MOOSE dressing intact. edema to R hip, good CMS, cryocuff to area, tedhose, scds, heel protectors in place. 2 SL patent. No c/o adverser eaction to IV abx. Has been medicated with scheduled Toradol, Ultram and Tylenol with good pain relief. Tolerating diet and fluids well.
--- NOTE | 2020-10-31 06:41 | NUR ---
resating, eyes closed, no c/o pain. cryocuff to R hip, MOOSE dressing intact. genet iniguez, scds and heel protector in place, Tolerating fluids well
--- NOTE | 2020-10-31 09:00 | NUR ---
Patient laying in bed, awake and alert. Vital signs taken, assessment complete. AM medications given (See MAR). Patient denies pain, scheduled pain medication given. LUQ dressing is C/D/I. MOOSE dressing and cryocuff in place on right hip. Breakfast delivered, patient denies further needs. Call light within reach.
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
--- NOTE | 2020-10-31 10:40 | NUR ---
Dr. Pritchett in room to assess patient and discuss POC
--- NOTE | 2020-10-31 11:15 | NUR ---
PT working with patient who is ambulating hallways
--- NOTE | 2020-10-31 12:54 | NUR ---
THIS MORNING DID A BED BATH AND SHAMPOOED HER HAIR. PUT LOTION ON HER BACK AND ON HER FEET. NEW GOWN. NOW PATIENT IS SITTING UP IN HER CHAIR AFTER WORKING WITH PHYSICAL THERAPY.
--- NOTE | 2020-10-31 13:00 | NUR ---
Patient sitting in chair, lunch delivered. Patient denies pain or further needs, call light within reach.
--- NOTE | 2020-10-31 15:51 | NUR ---
Patient laying in bed, visiting with a friend. Cryocuff in place on right hip. Patient denies needs, call light within reach.
--- NOTE | 2020-10-31 16:26 | NUR ---
Patient up ambulating the hallways with FWW and 1 person SBA. Patient denies pain or SOB with activity. Patient returns to room and sits in chair. Cryocuff applied to right hip, patient denies further needs. Call light within reach.
--- NOTE | 2020-10-31 19:04 | EKG ---
[facility] [address] [facility] [place], [place] [address] Signed Normal sinus rhythm Low voltage QRS Cannot rule out Anterior infarct (cited on or before 02-OCT-2018) Abnormal ECG When compared with ECG of 10-JUN-2020 09:29, Questionable change in initial forces of Anteroseptal leads Confirmed by FRANTZ BAIRES DO ([id number]) on 10/31/2020 7:04:04 PM Electronically Signed By: FRANTZ BAIRES DO 10/31/20 1904 PATIENT NAME: FANG COLÓN Electrocardiogram DATE OF : 62 PHYSICIAN: FRANTZ BAIRES DO REPORT #: [id number] REPORT IS CONFIDENTIAL AND NOT TO BE RELEASED WITHOUT AUTHORIZATION
--- NOTE | 2020-10-31 20:04 | NUR ---
coop 2ith assessment, awake, r hip MOOSE dressing with faint old drainage. edema to hip, genet hose, scds and heel protectors in place. scabbed over R forehead healing. SL LAC remoed, tip intact, medicated with Toradol scheduled. 5/10 r hip pain. good CMS, repositions self
--- NOTE | 2020-10-31 21:18 | NUR ---
WASTE AND BATTING WASTE CHOPPER ROUNDING NOTE. PT RESTING IN BED WITH EYES CLOSED. RESPIRATIONS EVEN AND UNLABORED, PT APPEARS TO BE SLEEPING. WHITE BOARD UDPATED. CALL LIGHT IN REACH.
--- NOTE | 2020-10-31 21:56 | NUR ---
Awake, watching tv, 4/10 R hip pain. movese legs good. Medicated with Ultran, Tylenol scheduled. tolerating fluids well.
--- NOTE | 2020-11-01 00:34 | NUR ---
resating, on room air, awakes easily, cryocuff to R hip, scds, genet hose, heel protectors in place, f/c patent, tolerating fluids well
--- NOTE | 2020-11-01 01:51 | NUR ---
awakes easily, 2/10 R hip pain, medicated with scheduled toradol and ultram. R MOOSE dressin intact w scant amount of old drainage. genet hose, scds and heel protectors inplace. repositons self in bed
--- NOTE | 2020-11-01 06:38 | NUR ---
pt coop, procedure explained, f/c dc'd tip intact.
--- NOTE | 2020-11-01 06:52 | NUR ---
On room air, R hip MOOSE dressing with scant amount of old drainage. edema to area, much improved gait. c/o R knee pain, ice to area. Has been medicated with scheduled Toradol, Tylenol and Ultram with good pain relief. scds, genet hose and heel protectors in place. SL patent. F/c was dc'd pt aware to notify nursing staff when feeling urge to void. coop. pleasant
--- NOTE | 2020-11-01 07:06 | NUR ---
Report from Ubaldo Goldman RN. Patient resting in bed. Denies needs at this time. Call light in reach, bed rails up X2.
--- NOTE | 2020-11-01 08:26 | NUR ---
Patient sitting up in recliner with feet elevated. Cryocuff in place. Assessment completed. Denies pain in hip at this time. Does state she has chronic back pain 08/30 at this time. AM medications administered. Takes without difficulty. Denies other needs at this time. Call light in reach.
--- NOTE | 2020-11-01 10:26 | NUR ---
Uses call light to notify staff she is feeling lightheaded. Upon entering room, rapid blinking noted. Does have history of seizures. Does not respond to stimulation. After 1 minute 30 seconds, wakes and begins talking to this nurse. Then after a few seconds of speaking, begins with another lasts [address] Pritchett was in and did speak to patient between episodes. Dr. Lara notified by Leyda Soni RN. Dr. Lara in at this time. Patient's longest episode lasted 2 minutes 30 seconds.
--- NOTE | 2020-11-01 14:20 | NUR ---
Assessment completed. Assisted from chair to bed. States she has been unable to have stool yet. Medications given as prescribed. Takes without difficulty. DONTA hose remain in place. Call light in reach, bed rails up X2.
--- NOTE | 2020-11-01 17:35 | NUR ---
Multiple short seizures this AM. Patient is postictal and lethargic for remainder of day, but does walk in hallway with staff multiple times. chest x-ray and blood cultures done today. Need UA. Elevated WBC's. No further seizure activity after this AM. Gabapentin DC'd. On continuous pulse ox to ensure she does not desat due to seizures.
--- NOTE | 2020-11-01 19:21 | NUR ---
FILLED PATIENT'S CRYO GOT HER SOME MORE ICE WATER AND ICE PACK.
--- NOTE | 2020-11-01 19:29 | NUR ---
PATIENT WASHED HER FACE AND BRUSHED HER TEETH.
--- NOTE | 2020-11-01 19:35 | NUR ---
PATIENT CALLED [facility] TO HAVE PULSE OX PLUGED IN. THIS RENTAL REPRESENTATIVE ASSISTED PATIENT. DENIES ANY FUTHER NEEDS. PATIENT IN CHAIR IN ROOM. CALL LIGHT IN REACH.
--- NOTE | 2020-11-01 20:07 | NUR ---
iN CHAIR, ALERT AND ORIENTED, DENIES ANY FURTHER SEIZURE ACTIVITY. ON ROOM AIR, LUNGS CLEAR DIM AT BASES, ABD LARGE, TODD, R HIP MOOSE DRESSING WITH SCANT OLD DRAINAGE, GREEN LIGHT FLASHING. EDEMA HIP, R KNEE EDEMATOUS AND RED SKIN COLORED AT THIS TIME. ICE PACK TO AREA, CRYOCUFF TOO. DONTA HOSE, SCDS AND HEEL PROTECTORS IN PLACE, 1+ EDEMA TO R KNEE AND ANKLES BILAT. LEG ELEVATED. SL IN PLACE, MEDICATED WITH SCHEDULED TORADOL PER 11/28 R HIP PAIN. AWARE OF NEED FOR UA
--- NOTE | 2020-11-01 21:17 | NUR ---
CALL LIGHT ANSWERED. FOUND PATIENT'S PHONE TRESTLE BUILDER. DOUG PROVIDED PER PATIENT'S REQUEST. NO OTHER NEEDS AT THIS TIME.
--- NOTE | 2020-11-01 22:27 | NUR ---
up to br, voided, clear yellow urine, sample sent to lab. Medicated with scheduled Tylenol and Ultram, R hip 2/10 pain.
--- NOTE | 2020-11-01 22:55 | NUR ---
ua results back, no bacteria, pt notified
--- NOTE | 2020-11-02 01:42 | NUR ---
resating, no distress, on room air, cryocuff to r hip, scds off at her request at this time. genet hose and heel protectors inplace, toleratiang fluids well
--- NOTE | 2020-11-02 02:20 | NUR ---
medicated with scheduled toradol and ultram 3/10 r hip pain.. iv restarted, cooperative, procedure explained
--- NOTE | 2020-11-02 02:32 | NUR ---
IN ROOM TO START PIV. PT TOLERATED WELL, NEW SITE CHARTED. PT DENIES NEEDS AT THIS TIME.
--- NOTE | 2020-11-02 03:36 | NUR ---
1 PA TO THE BATHROOM AND BACK USING WALKER. CRYO REFILLED. SCD'S, HEEL PROTECTORS AND CRYO ARE BACK ON. NO OTHER NEEDS AT THIS TIME. CALL LIGHT WITHIN REACH.
--- NOTE | 2020-11-02 04:35 | NUR ---
hAS SLEPT OFF AND ON, BEEN RECEIVING SCHEDULED ULTRAM, TYLENOL AND TORADOL WITH GOOD PAIN RELIEF. R HIP MOOSE DRESSING WITH OLD DRAINAGE. EDEMA TO HIP SCDS IN PLACE, UP TO BR SEVERAL TIMES, VOIDING QS, TOLERATIANG FLUIDS AND DIET WELL. DONTA ADDISON, SCDS, CRYOCUFF IN PLACE.
--- NOTE | 2020-11-02 06:07 | NUR ---
AWAKES EASILY, CRYOCUFF TO R HIP, C/O R KNEE PAIN, SCDS, DONTA HOSE, HEEL PROTECTORS IN PLACE. GOOD CMS, MOVES ALL EZTREMITIES. MOOSE DRESSING R HIP WITH OLD DRAINAGE. MEDICATED WITH SCHEDULED TYLENOL AND ULTRAM PO, COOP AND PLEASANT, FOLLOWS INSTRUCTIONS, TOLERATING FLUIDS WELL
--- NOTE | 2020-11-02 06:10 | NUR ---
THIS SCREENING NURSE ASSISTED RN WITH VITALS AND I&O. CRYO ICE REFRESHED. CALL LIGHT IN REACH. CRYO REPOSITIONED ON HIP. CALL LIGHT IN REACH. DENIES ANY FURTHER NEEDS AT THIS TIME.
--- NOTE | 2020-11-02 07:57 | NUR ---
PT ALERT AND INTERACTIVE DURING SHIFT EXCHANGE. SITTING UP IN BED EATING BREAKFAST. DENIES DISCOMFORTS OR NEEDS
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
--- NOTE | 2020-11-02 10:03 | NUR ---
PATIENT IN CHAIR WATCHING TV. CRYO CHECKED. VITALS AND I&O'S CHARTED. CALL LIGHT IN REACH. NO FURTHER NEEDS AT THIS TIME.
--- NOTE | 2020-11-02 10:55 | NUR ---
PT TO THE CHAIR AFTER MORNING MEAL AND CONTINUES TO REMAIN THERE TALKING ON THE PHONE. PT AGREES PAIN HAS BEEN WELL CONTROLLED SINCE SURGERY SHE DENIES C/O OR NEEDS.
--- NOTE | 2020-11-02 14:27 | NUR ---
PATIENT IN BED TALKING ON PHONE, RN IN ROOM. VITALS AND I&O'S CHARTED. CALL LIGHT IN REACH. NO FURTHER NEEDS AT THIS TIME.
--- NOTE | 2020-11-02 14:51 | NUR ---
PT ALERT, ORIENTED AND FEELS WELL CARED FOR. PT FELLS A NEED TO KNOW IF SHE IS GOING HOME OR TO A SNF. SHE HAS A DOG THAT SHE NEEDS TO MAKE A DECISION ABOUT. I LET HER KNOW THAT WILL DEPEND ON HOW SHE PROGRESSES AND HOW DR AND P.T. FEEL SHE IS HEALING. CM WILL WORK WITH HER WELL. PT REQUESTED PRAYER WILL FOLLOW NEEDED
--- NOTE | 2020-11-02 15:02 | NUR ---
DR ANGUIANO IN TO SEE PT SHE IS WORKING WITH P/T AT THIS TIME.
--- NOTE | 2020-11-02 18:05 | NUR ---
PATIENT IN CHAIR TALKING ON PHONE. RUO FILLED. VITALS AND I&O'S CHARTED. CALL LIGHT IN REACH. NO FURTHER NEEDS AT THIS TIME.
--- NOTE | 2020-11-02 19:05 | NUR ---
REPORT RECEIVED FROM DAY SHIFT RN. ALERT AND ORIENTED. PT UP TO BR WITH SBA AND FWW TO ATTEMPT BM. WILL USE NURSE CALL LIGHT WHEN FINISHED. WHITE BOARD UPDATED.
--- NOTE | 2020-11-02 20:30 | NUR ---
SCHEDULED PAIN MEDS ADMINISTERED PER ORDER. PT REPORTS HAVING HAD LARGE SOFT BM DURING SHIFT CHANGE. NO FURTHER NEEDS.
--- NOTE | 2020-11-02 21:55 | NUR ---
EVENING ASSESSMENT COMPLETE. SCHEDULED MEDS ADMINISTERED PER EMAR. PT DENIES PAIN OR NAUSEA. MOOSE TO RIGHT HIP WITH OLD DRAINAGE. LIGHT FLASHING GREEN. CMS INTACT. SCD'S/TEDS/CRYO IN PLACE. FRESH ICE TO CRYO. SEIZURE PADS ON BED. DENIES QUESTIONS OR CONCERNS. CALL LIGHT IN REACH.
--- NOTE | 2020-11-03 00:25 | NUR ---
PT RESTING IN BED WITH EYES CLOSED, NAD.
--- NOTE | 2020-11-03 02:02 | NUR ---
IN TO ADMINISTER SCHEDULED PAIN MEDICATIONS ORDERED. IV IN RIGHT FOREARM TENDER TO FLUSH PT STATING "OW, OW, OW". FLUSH STOPPED. ATTEMPTED TO START NEW IV. PT BECAME EMOTIONAL AND TEARFUL, "I'M JUST SO TIRED OF THIS". PT DOES NOT WANT TO BE "POKED" AGAIN. EDUCATION PROVIDED. PT REFUSED NEW IV. MEDICATION HELD. PT SITTING IN RECLINER AT THIS TIME. CRYO TO RIGHT HIP. CALL LIGHT IN REACH.
--- NOTE | 2020-11-03 04:59 | NUR ---
PT SITTING IN RECLINER WITH LEGS ELEVATED. RESPIRATIONS EVEN AND UNLABORED. CRYO TO RIGHT HIP. MOOSE LIGHT FLASHING GREEN. CALL LIGHT IN REACH.
--- NOTE | 2020-11-03 05:56 | NUR ---
SCHEDULED PAIN MEDS ADMINISTERED. PT REPORTS PAIN WELL CONTROLLED. DENIES NAUSEA. SITTING IN RECLINER WITH FEET ELEVATED. MOOSE DRESSING ON RIGHT HIP INTACT WITH SMALL AMOUNT OLD DRAINAGE. LIGHT FLASHING GREEN. CMS INTACT. TEDS AND CRYO IN PLACE. FRESH ICE TO CRYO. VS AND I&O COMPLETE. NO FURTHER NEEDS AT THIS TIME. CALL LIGHT IN REACH.
--- NOTE | 2020-11-03 06:47 | NUR ---
SPOKE WITH LOIS JHA WHO IS TAKING CALL FOR DR. ANGUIANO REGARDING PT REFUSING IV PLACEMENT. OK'D TO LEAVE IV OUT AT THIS TIME.
--- NOTE | 2020-11-03 07:10 | NUR ---
SBA TO THE BATHROOM. PATIENT IS BACK IN THE CHAIR. CALL LIGHT WITHIN REACH. NO OTHER NEEDS AT THIS TIME.
--- NOTE | 2020-11-03 07:26 | NUR ---
PT AWAKE AND INTERACTIVE DURING SHIFT EXCHANGE. UP AND TO THE CHAIR CONTINUES TO HAVE GOOD PAIN CONTROL AGREES SHE IS READY FOR DC TODAY.
--- NOTE | 2020-11-03 08:04 | NUR ---
DR ANGUIANO SLASHER TENDER IN TO SEE PT DC INSTRUCTIONS PROVIDED ORDERS WRITTEN ALL QUESTIONS ANSWERED.
--- NOTE | 2020-11-03 08:13 | NUR ---
PT BP IS ELEVATED LISINOPRIL GIVEN NOW INSTEAD OF 0900
[2020-11-03] MEDS ORDERED: OXYCODONE HCL5 MG PO (08:40)
[2020-11-03] MEDS ORDERED: XARELTO10 MG PO (08:40)
[2020-11-03] MEDS ORDERED: SENNA LAX8.6 MG PO (08:41)
[2020-11-03] MEDS ORDERED: TRAMADOL HCL50 MG PO (08:41)
--- NOTE | 2020-11-03 09:09 | NUR ---
Spoke with Suyapa and she is being dcd today. Orders are completed. She plans on dc to home, inquired which HH she would like and she has had [facility] in the past. Attempted to call and unable to reach, last week they were not taking pts. If unable to get [facility] to accept, will send chart to [facility]. Called and left a message with her DHS cm, Deirdre, asking for return call at [phone]. Did not receive a return call, so I called Radha Roberts, the worker of the day. Suyapa has stated she has cg in the home, but per Radha, pt let cg go who provided 20 hrs of care per month. She states Suyapa needs to call Deirdre and request a change of condition eval for more hours and to hire a cg. Will update pt and speak with PT to determine how well this pt can care for self.
--- NOTE | 2020-11-03 09:30 | NUR ---
Spoke with PT and OT. Both feel pt is unsafe to go home. Spoke with pt and she is will to go to [facility] for PT/OT. Called and confirmed with Nicole they have bed. Chart faxed and she will contact [facility] for auth. She will let me know when they receive auth.
--- NOTE | 2020-11-03 09:40 | NUR ---
PT IS UP WORKING WITH P/T AT THIS TIME.
--- NOTE | 2020-11-03 10:35 | NUR ---
PATIENT IN BED TALKING ON PHONE. VITALS AND I&O'S CHARTED. CALL LIGHT IN REACH. NO FURTHER NEEDS AT THIS TIME.
--- NOTE | 2020-11-03 12:30 | NUR ---
Received text, they are awaiting auth. She did call back and let them know we are short on rooms at this time.
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
--- NOTE | 2020-11-03 13:04 | NUR ---
PT INCONTINENT OF STOOL ASSISTED TO GET CLEANED UP THEN TO THE CHAIR.
--- NOTE | 2020-11-03 14:19 | NUR ---
PT SITTING UP IN THE CHAIR, ARRANGEMENTS FOR TRANSFER TO SNF ARE BEING MADE. PT ASSISTED TO SHOWER IN PREPARATION
--- NOTE | 2020-11-03 15:00 | NUR ---
Received request for clarification of xareltlo orders, contacted Yanelis and ramon order written and faxed to [facility].
--- NOTE | 2020-11-03 15:05 | NUR ---
Called and scheduled ride to [facility] with wc van. They will pickup wc from [facility] and be here at 3:40 to transfer pt. coal pulverizer operator notified.
--- NOTE | 2020-11-03 15:21 | NUR ---
PATIENT UP TO SHOWER AND BACK TO CHAIR, 1PA FWW. PATIENT ASSISTED IN SHOWER. NEW GOWN PROVIDED. CALL LIGHT IN REACH. NO FURTHER NEEDS AT THIS TIME.
== END 2020-11-03 15:40 | DRG 522 ==
LOC: ED 17:32 → MS 19:54
PROVIDERS: ADMIT Specialist; ATTEND Specialist
PROC: 3E0T3BZ Introduction of Anesthetic Agent into Peripheral Nerves and Plexi, Percutaneous Approach (ICD-10-PCS; 2020-10-30)
PROC: 3E0T33Z Introduction of Anti-inflammatory into Peripheral Nerves and Plexi, Percutaneous Approach (ICD-10-PCS; 2020-10-30)
PROC: 0SRR0JZ Replacement of Right Hip Joint, Femoral Surface with Synthetic Substitute, Open Approach (ICD-10-PCS; principal; 2020-10-30 09:00)
DX: S72.031A Displaced midcervical fracture of right femur, initial encounter for closed fracture (principal); Z20.822 Contact with and (suspected) exposure to COVID-19; D72.829 Elevated white blood cell count, unspecified; I10 Essential (primary) hypertension; G89.18 Other acute postprocedural pain; F43.10 Post-traumatic stress disorder, unspecified; J45.20 Mild intermittent asthma, uncomplicated; F32.9 Major depressive disorder, single episode, unspecified; G40.A09 Absence epileptic syndrome, not intractable, without status epilepticus; W01.0XXA Fall on same level from slipping, tripping and stumbling without subsequent striking against object, initial encounter; Z79.899 Other long term (current) drug therapy; Z88.0 Allergy status to penicillin; Z88.1 Allergy status to other antibiotic agents; Z88.2 Allergy status to sulfonamides; Z88.8 Allergy status to other drugs, medicaments and biological substances; Z88.5 Allergy status to narcotic agent
CPT/HCPCS: 01210; 36415; 51702; 71045; 72170; 73502; 76942; 80048; 80053; 81001; 83735; 85025; 93005; 93010; 97110; 97116; 97163; 97165; 97535; 99285-25; C1776; C9803; J0131; J0330; J0690; J1100; J1170; J1885; J2001; J2250; J2405; J2704; J2795; J3480; J7121; J8540; U0003

== ENCOUNTER 2020-12-28 10:20 | Emergency (ER) | payer OTHER ==
[~2020-12-28] VITALS: Ht 167.6 cm; Wt 87.5 kg
[~2020-12-28 10:20] MED LIST changes: +OXYCODONE HCL5 MG PO; +SENNA LAX8.6 MG PO; +TRAMADOL HCL50 MG PO; +XARELTO10 MG PO
--- OUTSIDE RECORDS SUMMARY | 2020-12-28 10:24 | XMS ---
PreManage Notification: FANG COLÓN Security Caustic Room Attendant Events No recent Security Events currently on file CRITERIA MET - Group Notification - [facility] - Has Care Guidelines - PDMP CARE PROVIDERS COTY KINGSLEY Physician Pellet Post Inspector 03/28/2018-Current PHONE: [phone] AARON CENTENO Internal Medicine 10/10/2019-Current PHONE: [phone] Venkat Rodas Coagulating Bath Operator/Gym Supervisor 09/21/2020-Current PHONE: [phone] SHAI GEE Internal Medicine: Pulmonary Disease 04/27/2018-Current PHONE: Unknown Guidelines Source: [facility] Guidelines Date: 10/15/2019 Care Coordination: Currently engaged in individual therapy, medication management and case management with [facility].\T\nbsp; Please contact [facility] for any mental health concerns.\T\nbsp; [place]:\T\nbsp; [phone]\T\nbsp;\T\ nbsp; [facility] Crisis: [phone]. 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 Centeno on 10/24/2019.\T\nbsp; 10/10/2019 [facility] Phone number [phone] is for [place] [facility] [place] [facility].\T\nbsp; Clinic phone number [phone] no longer active.\T\nbsp; 05/21/2019 [facility] - PATIENT HAS AN APT TO ESTABLISH CARE WITH DR CENTENO ON 06/06/19. E.D. VISIT COUNT (12 MO.) 2 [facility]. TOTAL 2 NOTE: Visits indicate total known visits. ED/UCC VISIT TRACKING (12 MO.) 12/28/2020 10:[address] [facility] [place] TYPE: Emergency COMPLAINT: - SOB, SEIZURE ACTIVITY 10/29/2020 17:34 [facility] [place] TYPE: Emergency COMPLAINT: - GLF INPATIENT VISIT TRACKING (12 MO.) 10/29/2020 19:54 [facility] [place] TYPE: Medical Surgical COMPLAINT: - BROKEN HIP DIAGNOSES: - Mild intermittent asthma, uncomplicated - Allergy status to sulfonamides - Allergy status to other drugs, medicaments and biological substances - Essential (primary) hypertension - Allergy status to sulfonamides - Pain in right hip - Absence epileptic syndrome, not intractable, without status epilepticus - Allergy status to penicillin - Major depressive disorder, single episode, unspecified - Allergy status to other antibiotic agents - Post-traumatic stress disorder, unspecified - Displaced midcervical fracture of right femur, initial encounter for closed fracture - Allergy status to narcotic agent - Allergy status to other antibiotic agents - Absence epileptic syndrome, not intractable, without status epilepticus - Elevated white blood cell count, unspecified - Other intermediate (current) drug therapy - Displaced midcervical fracture of right femur, initial encounter for closed fracture - Other intermediate (current) drug therapy - Fall on same level from slipping, tripping and stumbling without subsequent striking against object, initial encounter - Fall on same level from slipping, tripping and stumbling without subsequent striking against object, initial encounter - Major depressive disorder, single episode, unspecified - Allergy status to penicillin - Mild intermittent asthma, uncomplicated - Other acute postprocedural pain - Essential (primary) hypertension - Allergy status to narcotic agent - Elevated white blood cell count, unspecified - Other acute postprocedural pain - Post-traumatic stress disorder, unspecified - Allergy status to other drugs, medicaments and biological substances [email or web address]
[2020-12-28] MEDS ORDERED: CITALOPRAM HBR40 MG PO (10:54)
[2020-12-28] MEDS ORDERED: AMLODIPINE BESYL5 MG PO (10:54)
--- NOTE | 2020-12-30 13:49 | EKG ---
[facility] [address] [place], [place] [address] Signed Sinus tachycardia Otherwise normal ECG When compared with ECG of 29-OCT-2020 18:54, No significant change was found Confirmed by FRANTZ BAIRES DO ([id number]) on 12/30/2020 1:49:41 PM Electronically Signed By: FRANTZ BAIRES DO 12/30/20 1349 PATIENT NAME: FANG COLÓN Electrocardiogram DATE OF : 62 PHYSICIAN: FRANTZ BAIRES DO REPORT #: [id number] REPORT IS CONFIDENTIAL AND NOT TO BE RELEASED WITHOUT AUTHORIZATION
== END 2020-12-28 12:40 | disposition home or self-care (01) ==
LOC: ED 10:20
DX: R06.00 Dyspnea, unspecified (principal); J45.909 Unspecified asthma, uncomplicated; I10 Essential (primary) hypertension; Z88.0 Allergy status to penicillin; Z88.8 Allergy status to other drugs, medicaments and biological substances; Z88.2 Allergy status to sulfonamides; Z88.5 Allergy status to narcotic agent; Z79.899 Other long term (current) drug therapy
CPT/HCPCS: 71045; 80053; 83735; 84484; 85025; 93005; 93010; 99285-25; J7040

== ENCOUNTER 2020-12-29 11:29 | Emergency (ER) | payer OTHER ==
[~2020-12-29] VITALS: Ht 167.6 cm; Wt 87.5 kg
--- OUTSIDE RECORDS SUMMARY | 2020-12-29 11:34 | XMS ---
PreManage Notification: FANG COLÓN Security Boat Wrapper Events No recent Security Events currently on file CRITERIA MET - Group Notification - [facility] - Has Care Guidelines - [facility] - 2 Visits in 30 Days CARE PROVIDERS COTY KINGSLEY Physician Automation Consultant 03/28/2018-Current PHONE: [phone] AARON CENTENO Internal Medicine 10/10/2019-Current PHONE: [phone] Venkat Rodas Wildlife Manager/Regional Office Coordinator 09/21/2020-Current PHONE: [phone] SHAI GEE Internal Medicine: Pulmonary Disease 04/27/2018-Current PHONE: Unknown Guidelines Source: [facility] Guidelines Date: 10/15/2019 Care Coordination: Currently engaged in individual therapy, medication management and case management with [facility].\T\nbsp; Please contact [facility] for any mental health concerns.\T\nbsp; [place]T\nbsp; [phone]\T\nbsp;\T\ nbsp; [facility] Crisis: [phone]. 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 Centeno on 10/24/2019.\T\nbsp; 10/10/2019 [facility] Phone number [phone] is for [place] [facility]T\nbsp; Clinic phone number [phone] no longer active.\T\nbsp; 05/21/2019 [facility] - PATIENT HAS AN APT TO ESTABLISH CARE WITH DR CENTENO ON 06/06/19. E.D. VISIT COUNT (12 MO.) 3 [facility]. TOTAL 3 NOTE: Visits indicate total known visits. ED/UCC VISIT TRACKING (12 MO.) 12/29/2020 11:30 [facility] [place] TYPE: Emergency COMPLAINT: - SEIZURE 12/28/2020 10:22 [facility] [place] TYPE: Emergency COMPLAINT: - SOB, SEIZURE ACTIVITY 10/29/2020 17:34 [facility] [place] TYPE: Emergency COMPLAINT: - GLF INPATIENT VISIT TRACKING (12 MO.) 10/29/2020 19:[address] [facility] [place] TYPE: Medical Surgical COMPLAINT: - BROKEN [...] white blood cell count, unspecified - Other long term care pharmacist (current) drug therapy - Displaced midcervical fracture of right femur, initial encounter for closed fracture - Other chcf (current) drug therapy - Fall on same [...] to other drugs, medicaments and biological substances [email or web address]
== END 2020-12-29 13:25 | disposition home or self-care (01) ==
LOC: ED 11:29
DX: R56.9 Unspecified convulsions (principal); S70.01XA Contusion of right hip, initial encounter; W19.XXXA Unspecified fall, initial encounter; J45.909 Unspecified asthma, uncomplicated; I10 Essential (primary) hypertension; Z88.0 Allergy status to penicillin; Z88.8 Allergy status to other drugs, medicaments and biological substances; Z88.2 Allergy status to sulfonamides; Z88.5 Allergy status to narcotic agent; Z79.899 Other long term (current) drug therapy; Z91.048 Other nonmedicinal substance allergy status
CPT/HCPCS: 73502; 99284-25

== ENCOUNTER 2021-01-19 11:30 | Emergency (ER) | payer OTHER ==
[~2021-01-19] VITALS: Ht 167.6 cm; Wt 87.5 kg
--- OUTSIDE RECORDS SUMMARY | 2021-01-19 11:36 | XMS ---
PreManage Notification: FANG COLÓN Security Threading Machine Setter Events No recent Security Events currently on file CRITERIA MET - Group Notification - [facility] - Has Care Guidelines - [facility] - 2 Visits in 30 Days CARE PROVIDERS COTY KINGSLEY Physician Bioinformatics Assistant 03/28/2018-Current PHONE: [phone] AARON CENTENO Internal Medicine 10/10/2019-Current PHONE: [phone] Venkat Rodas Sales Representative Leather Goods/Freelance Writer 09/21/2020-Current PHONE: [phone] SHAI GEE Internal Medicine: Pulmonary Disease 04/27/2018-Current PHONE: Unknown Guidelines Source: [facility] Guidelines Date: 10/15/2019 Care Coordination: Currently engaged in individual therapy, medication management and case management with [facility].\T\nbsp; Please contact [facility] for any mental health concerns.\T\nbsp; [place]T\nbsp; [phone]\T\nbsp;\T\ nbsp; [facility] Crisis: [phone]. 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 Centeno on 10/24/2019.\T\nbsp; 10/10/2019 [facility] Phone number [phone] is for [place] [facility] [place] [facility].\T\nbsp; Clinic phone number [phone] no longer active.\T\nbsp; 05/21/2019 [facility] - PATIENT HAS AN APT TO ESTABLISH CARE WITH DR CENTENO ON 06/06/19. E.D. VISIT COUNT (12 MO.) 4 [facility]. TOTAL 4 NOTE: Visits indicate total known visits. ED/UCC VISIT TRACKING (12 MO.) 01/19/2021 11:[address] [facility] [place] TYPE: Emergency COMPLAINT: - CHEST PAIN 12/29/2020 11:30 [facility] [place] TYPE: Emergency COMPLAINT: - SEIZURE DIAGNOSES: - Allergy status to other drugs, medicaments and biological substances - Unspecified convulsions - Essential (primary) hypertension - Allergy status to sulfonamides - Other nonmedicinal substance allergy status - Contusion of right hip, initial encounter - Other longterm (current) drug therapy - Allergy status to penicillin - Unspecified asthma, uncomplicated - Allergy status to narcotic agent - Unspecified fall, initial encounter 12/28/2020 10:22 [facility] TYPE: Emergency COMPLAINT: - SOB, SEIZURE ACTIVITY DIAGNOSES: - Shortness of breath - Unspecified asthma, uncomplicated - Allergy status to penicillin - Allergy status to other drugs, medicaments and biological substances - Other longterm (current) drug therapy - Allergy status to sulfonamides - Dyspnea, unspecified - Essential (primary) hypertension - Allergy status to narcotic agent 10/29/2020 17:34 [facility] TYPE: Emergency [...] white blood cell count, unspecified - Other ultrasound tech (current) drug therapy - Displaced midcervical fracture of right femur, initial encounter for closed fracture - Other longterm (current) drug therapy - Fall on same [...] to other drugs, medicaments and biological substances [email or web address]
--- NOTE | 2021-01-20 16:35 | EKG ---
[facility] [address] [place] [address] Signed Sinus tachycardia Inferior infarct , age undetermined Anterolateral infarct , age undetermined Abnormal ECG When compared with ECG of 28-DEC-2020 10:44, QRS axis shifted left Anterolateral infarct is now present Inferior infarct is now present T wave inversion now evident in Lateral leads Confirmed by DOROTHY BLACK MD ([id number]) on 01/20/2021 4:34:45 PM Electronically Signed By: DOROTHY BLACK MD 01/20/21 1635 PATIENT NAME: FANG COLÓN Electrocardiogram DATE OF : 62 PHYSICIAN: DOROTHY BLACK MD REPORT #: [id number] REPORT IS CONFIDENTIAL AND NOT TO BE RELEASED WITHOUT AUTHORIZATION
== END 2021-01-19 14:00 | disposition home or self-care (01) ==
LOC: ED 11:30
DX: K21.9 Gastro-esophageal reflux disease without esophagitis (principal); K59.00 Constipation, unspecified; J45.909 Unspecified asthma, uncomplicated; I10 Essential (primary) hypertension; Z88.0 Allergy status to penicillin; Z88.8 Allergy status to other drugs, medicaments and biological substances; Z88.2 Allergy status to sulfonamides; Z88.5 Allergy status to narcotic agent; Z79.899 Other long term (current) drug therapy
CPT/HCPCS: 71045; 80053; 83690; 83735; 84484; 85025; 93005; 93010; 99285-25

== ENCOUNTER 2021-04-01 20:05 | Emergency (ER) | payer OTHER ==
[~2021-04-01] VITALS: Ht 167.6 cm; Wt 80.7 kg
--- OUTSIDE RECORDS SUMMARY | 2021-04-01 20:08 | XMS ---
PreManage Notification: FANG COLÓN Security Ultrasound Technol Events No recent Security Events currently on file CRITERIA MET - [facility] - Group Notification - PDMP CARE PROVIDERS COTY KINGSLEY Physician Associate Professor Of Physics 03/28/2018-Current PHONE: [phone] AARON CENTENO Internal Medicine 10/10/2019-Current PHONE: [phone] Venkat Rodas Manufacturing Assistant/Flight Test Shop Mechanic 02/18/2021-Current PHONE: [phone] SHAI GEE Internal Medicine: Pulmonary Disease 04/27/2018-Current PHONE: Unknown Guidelines Source: [facility] Guidelines Date: 10/15/2019 Care Coordination: Currently engaged in individual therapy, medication management and case management with [facility].\T\nbsp; Please contact [facility] for any mental health concerns.\T\nbsp; [place]:\T\nbsp; [phone]\T\nbsp;\T\ nbsp; [facility] Crisis: [phone]. 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 Centeno on 10/24/2019.\T\nbsp; 10/10/2019 [facility] Phone number [phone] is for [place] [facility] [place] [facility].\T\nbsp; Clinic phone number [phone] no longer active.\T\nbsp; 05/21/2019 [facility] - PATIENT HAS AN APT TO ESTABLISH CARE WITH DR CENTENO ON 06/06/19. E.D. VISIT COUNT (12 MO[address] 5 [facility]. TOTAL 5 NOTE: Visits indicate total known visits. ED/UCC VISIT TRACKING (12 MO.) 04/01/2021 20:06 [facility] TYPE: Emergency COMPLAINT: - SEIZURE 01/19/2021 11:30 [facility] TYPE: Emergency COMPLAINT: - CHEST PAIN DIAGNOSES: - Allergy status to sulfonamides - Gastro-esophageal reflux disease without esophagitis - Other chest pain - Allergy status to penicillin - Other terminal computer operator (current) drug therapy - Constipation, unspecified - Unspecified asthma, uncomplicated - Essential (primary) hypertension - Allergy status to narcotic agent - Allergy status to other drugs, medicaments and biological substances 12/29/2020 11:30 [facility] TYPE: Emergency COMPLAINT: - SEIZURE DIAGNOSES: - Allergy status to other drugs, medicaments and biological substances - Unspecified convulsions - Essential (primary) hypertension - Allergy status to sulfonamides - Other nonmedicinal substance allergy status - Contusion of right hip, initial encounter - Other terminal computer operator (current) drug therapy - Allergy status to penicillin - Unspecified asthma, uncomplicated - Allergy status to narcotic agent - Unspecified fall, initial encounter 12/28/2020 10:22 [facility] TYPE: Emergency COMPLAINT: - SOB, SEIZURE ACTIVITY DIAGNOSES: - Shortness of breath - Unspecified asthma, uncomplicated - Allergy status to penicillin - Allergy status to other drugs, medicaments and biological substances - Other terminal computer operator (current) drug therapy - Allergy status [...] white blood cell count, unspecified - Other chcf (current) drug therapy - Displaced midcervical fracture [...] to other drugs, medicaments and biological substances [email or web address]
== END 2021-04-01 20:42 | disposition home or self-care (01) ==
LOC: ED 20:05
DX: G40.909 Epilepsy, unspecified, not intractable, without status epilepticus (principal); I10 Essential (primary) hypertension; F43.10 Post-traumatic stress disorder, unspecified; Z88.0 Allergy status to penicillin; Z88.8 Allergy status to other drugs, medicaments and biological substances; Z88.2 Allergy status to sulfonamides; Z88.5 Allergy status to narcotic agent; Z91.048 Other nonmedicinal substance allergy status; Z79.899 Other long term (current) drug therapy
CPT/HCPCS: 99284

== ENCOUNTER 2022-01-05 16:20 | Emergency (ER) | payer OTHER ==
[~2022-01-05] VITALS: Ht 167.6 cm; Wt 80.7 kg
[~2022-01-05 16:20] MED LIST changes: +ULTRAM50 MG PO
--- OUTSIDE RECORDS SUMMARY | 2022-01-05 16:22 | XMS ---
PreManage Notification: FANG COLÓN Security Plastic Products Sales Representative Events No recent Security Events currently on file CRITERIA MET - Group Notification CARE PROVIDERS NINO WHITEHEAD Plum Packeralonzo [place] PHONE: [phone] WINDY GOFF Internal Medicine Current PHONE: Unknown JARRELL BINGHAM Nurse Practitioner Current PHONE: [phone] COTY KINGSLEY Physician Senior Manufacturing Supervisor 03/28/2018-Current PHONE: [phone] Venkat Rodas Immigration Specialist/Retail Selling Specialist 11/19/2021-Current PHONE: [phone] YURIY RODRIGUEZ Nurse Practitioner: Family Current PHONE: Unknown URSZULA SPENCER Physician Senior Manufacturing Supervisor 08/19/2021-Current PHONE: [phone] SHAI GEE Internal Medicine: Pulmonary Disease 04/27/2018-Current PHONE: Unknown Nurse Sarah PIERRE PHONE: [phone] SHE [facility] Current PHONE: [phone] Care Guidelines exist for the following facilities: 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 Centeno on 10/24/2019.\T\nbsp; 10/10/2019 [facility] Phone number [phone] is for [place] [facility] [place] [facility].\T\nbsp; Clinic phone number [phone] no longer active.\T\nbsp; 05/21/2019 [facility] - PATIENT HAS AN APT TO ESTABLISH CARE WITH DR CENTENO ON 06/06/19. E.D. VISIT COUNT (12 MO.) [address] [facility] TOTAL 4 NOTE: Visits indicate total known visits. ED/UCC VISIT TRACKING (12 MO.) 01/05/2022 16:21 [facility] TYPE: Emergency COMPLAINT: - SEIZURE 08/18/2021 15:31 [facility] TYPE: Emergency COMPLAINT: - R SIDED RIB PAIN/NO INJ DIAGNOSES: - Fall on same level from slipping, tripping and stumbling with subsequent striking against unspecified object, initial encounter - Pleurodynia - Unspecified asthma, uncomplicated - Essential (primary) hypertension - Allergy status to other drugs, medicaments and biological substances - Allergy status to narcotic agent - Contusion of left front wall of thorax, initial encounter - Post-traumatic stress disorder, unspecified - Allergy status to penicillin - Other nonmedicinal substance allergy status - Allergy status to sulfonamides - Other long-term (current) drug therapy 04/01/2021 20:06 [facility] TYPE: Emergency COMPLAINT: - SEIZURE DIAGNOSES: - Epilepsy, unspecified, not intractable, without status epilepticus - Allergy status to penicillin - Migraine, unspecified, not intractable, without status migrainosus - Allergy status to sulfonamides - Post-traumatic stress disorder, unspecified - Allergy status to other drugs, medicaments and biological substances - Epilepsy, unspecified, not intractable, without status epilepticus - Other superintendent terminal (current) drug therapy - Essential (primary) hypertension - Other nonmedicinal substance allergy status - Allergy status to narcotic agent 01/19/2021 11:30 [facility] TYPE: Emergency COMPLAINT: - CHEST PAIN DIAGNOSES: - Allergy status to sulfonamides - Gastro-esophageal reflux disease without esophagitis - Other chest pain - Allergy status to penicillin - Other long-term (current) drug therapy - Constipation, unspecified - Unspecified asthma, uncomplicated - Essential (primary) hypertension - Allergy status to narcotic agent - Allergy status to other drugs, medicaments and biological substances INPATIENT VISIT TRACKING (12 MO.) 12/14/2021 10:01 [facility] TYPE: Neurology DIAGNOSES: 93746. Other seizures 27415. epilepsy [email or web address]
== END 2022-01-05 18:53 | disposition home or self-care (01) ==
LOC: ED 16:20
DX: R56.9 Unspecified convulsions (principal); J45.909 Unspecified asthma, uncomplicated; I10 Essential (primary) hypertension; F43.10 Post-traumatic stress disorder, unspecified; Z88.0 Allergy status to penicillin; Z88.8 Allergy status to other drugs, medicaments and biological substances; Z88.2 Allergy status to sulfonamides; Z91.048 Other nonmedicinal substance allergy status; Z79.899 Other long term (current) drug therapy
CPT/HCPCS: 36415; 80053; 85025; 99284

== ENCOUNTER 2023-01-16 18:52 | Emergency (ER) | payer OTHER ==
[~2023-01-16] VITALS: Ht 167.6 cm; Wt 83.0 kg
--- OUTSIDE RECORDS SUMMARY | 2023-01-16 19:12 | XMS ---
PreManage Notification: FANG COLÓN Security Wallpaper Inspector And Shipper Events No recent Security Events currently on file CRITERIA MET - Group Notification CARE PROVIDERS -, [place]- Dentist: Smoked Meat Preparer [facility] PHONE: [phone] NINO WHITEHEAD Floor Waxer Herminia [place] PHONE: [phone] WINDY GOFF Internal Medicine Current PHONE: [phone] JARRELL BINGHAM Nurse Practitioner Current PHONE: [phone] COTY KINGSLEY Physician Purchaser 03/28/2018-Current PHONE: [phone] Venkat Rodas [place] Dam Pumper/Branch Service Associate 10/19/2022-Current PHONE: [phone] YURIY RODRIGUEZ Nurse Practitioner: Family Current PHONE: Unknown URSZULA SPENCER Physician Purchaser 08/19/2021-Current PHONE: [phone] SHAI GEE Internal Medicine: Pulmonary Disease 04/27/2018-Current PHONE: Unknown GABBY Nurse Sarah LYLESSICA SAUNDRA PHONE: [phone] SHE [facility] Current PHONE: [phone] Care Guidelines exist for the following facilities: [facility] ( 10/15/2019 ) Care History Medical/Surgical 10/15/2019 [facility] Spoke to patient.\T\nbsp; She states that 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 Centeno on 10/24/2019.\T\nbsp; 10/10/2019 [facility] Phone number [phone] is for [facility].\T\nbsp; Clinic phone number [phone] no longer active.\T\nbsp; 05/21/2019 [facility] - PATIENT HAS AN APT TO ESTABLISH CARE WITH DR CENTENO ON 06/06/19. [place] [facility] NOTE: Visits indicate total known visits. ED/UCC VISIT TRACKING (12 MO.) [facility] COMPLAINT: - L FINGER INJURY 11/25/2022 12:08 [facility] TYPE: Emergency COMPLAINT: - SKIN PROBLEM INPATIENT VISIT TRACKING (12 MO.) No inpatient visits to display in this time frame [email or web address]
[2023-01-16 20:21] VITALS: BP 159/96
== END 2023-01-16 20:21 | disposition home or self-care (01) ==
LOC: ED 18:52
DX: S61.237A Puncture wound without foreign body of left little finger without damage to nail, initial encounter (principal); Z23 Encounter for immunization; W26.9XXA Contact with unspecified sharp object(s), initial encounter; F43.10 Post-traumatic stress disorder, unspecified; Z88.0 Allergy status to penicillin; Z88.8 Allergy status to other drugs, medicaments and biological substances; Z88.2 Allergy status to sulfonamides; Z88.5 Allergy status to narcotic agent; Z79.899 Other long term (current) drug therapy
CPT/HCPCS: 73140; 90471; 90715; 99283-25

== ENCOUNTER 2023-09-13 06:55 | Day surgery (SDC) | payer OTHER ==
[2023-09-05 10:03] VITALS: BP 166/92
[~2023-09-13] VITALS: Ht 167.6 cm; Wt 82.7 kg
[~2023-09-13 06:55] MED LIST changes: +ONDANSETRON ODT4 MG PO
[2023-09-13 07:38] VITALS: BP 159/78
[2023-09-13] MEDS ORDERED: CITALOPRAM HBR10 MG PO (07:41)
--- NOTE | 2023-09-13 10:03 | NUR ---
09/13/23 Ariella3 Anna Pritchett 0938 PT TO PACU SLEEPING O2 ON 6L VIA MASK FOGGING NOTED IN MASK PT NEED JAW THRUST TO MAINTAIN AIRWAY.
[2023-09-13 10:20] VITALS: BP 137/63
[2023-09-13 11:38] VITALS: BP 110/52
--- NOTE | 2023-09-13 11:40 | NUR ---
1020: PT RETURNS TO UNIT VIA STRETCHER FROM PACU. AWAKE AND ORIENTED ON ARRIVAL. VSS, RESP EVEN AND UNLABORED ON RA. DRESSING C/D/I. PT DENIES PAIN AND NAUSEA. POC DISCUSSED AND PT AGREEABLE. APPLE JUICE AND PUDDING PROVIDED. MD DWIGHT UPDATES CAREGIVER GAYLE 1045: GAYLE TO NURSE'S STATION WITH CONCERN ABOUT HOW PT WILL GET POSTOP RX. HARD COPY PROVIDED. CAREGIVER TO TAKE TO PHARMACY. CAREGIVER STATES SHE CANNOT STAY LATER THAN 1100 D/T END OF SHIFT AND PT GOING OVER ALLOTED HOURS. SETS UP MEDICAL TRANSPORT FOR DC. PT WITH FRIEND THAT LIVES NEXT DOOR. THIS RN CONTACTED THE GREG. MICHAEL DE LA ROSA TO CHECK IN WITH PT AFTER DC TODAY PERIODICALLY
--- NOTE | 2023-09-13 13:04 | NUR ---
1135: PT AWAKE AND ALERT WATCHING TV IN STRETCHER. VSS, RESP EVEN AND UNLABORED. DENIES PAIN AND NAUSEA. DRESSING REMAINS C/D/I. SCDS REMOVED AND PT DANGLED AT THE BEDSIDE, RUSS WELL. DENIES DIZZINESS AND SOB. AMBULATES IN ROOM, STEADY GAIT. TO DRESS INDEPENDENTLY FOR DC. 1155: SL REMOVED WITH CATH TIP INTACT AND PRESSURE APPLIED TO SITE, WNL. DC INSTRUCTIONS PROVIDED AND DISCUSSED. PT VOICES UNDERSTANDING AND DENIES QUESTIONS AND CONCERNS AT THIS TIME. 1200: PT WHEELED OFF OF UNIT BY THIS RN FOR DC. THIS RN AND PT WAIT IN LOBBY FOR MEDICAL TRANSPORT TO ARRIVE. 1220: MEDICAL TRANSPORT YET TO ARRIVE. PT WHEELED BACK TO ROOM 6 IN DAY SURGERY. [employer], CAREGIVER EMPLOYER, CONTACTED. TO SEND EMPLOYEE TO TRANSPORT PT HOME 1240: TAMANNA WITH [employer] ARRIVES AT HOSPITAL. PT TRANSFERS INTO VEHICLE INDEPENDENTLY AND APPROPRIATELY. NO PHYSICAL S/S OF DISTRESS AT THIS TIME
--- NOTE | 2023-09-14 07:43 | OR ---
[facility] [address] [place], [place] [address] Signed DATE OF OPERATION: 09/13/2023 SURGEON: Bony Quintanilla MD PREOPERATIVE DIAGNOSIS: Right nodular religion skin lesion (15 x 25 mm). POSTOPERATIVE DIAGNOSIS: Right nodular religion skin lesion (15 x 25 mm). PROCEDURE: Excision of right religion skin lesion (18 mm x 45 mm). ESTIMATED BLOOD LOSS: None. 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 She always comes with her caregiver. She is not able to drive. She said four years ago, she purchased a permanent for her hair. She said the solution leaked down on her right religion and burned her skin. She now has a 15 x 25 mm lesion that has never healed. It is nodular and maybe little ulcerated in the center. She said it does bleed from time to time. She had been asked to see me as a local general surgeon to have it excised. In the office, I had met with Suyapa and her caregiver. I sara a picture to show them the curvilinear incision required to remove the lesion full thickness. She understands we cannot close it completely, we will have to allow to heal in secondarily. She understands there is risk to the surgery including, but not limited to bleeding, infection, scarring, change in contour of the skin as well as possible need for additional surgeries or treatments. She had expressed understanding and wished to proceed. DESCRIPTION OF PROCEDURE: I had met with Suyapa and her caregiver in our preop area. Our nurse was in the room as well. We all could easily see and agreed on the lesion on the right religion. We marked that appropriately. After this, Suyapa was taken into the operating room and placed in the supine position under general LMA anesthesia. She was placed into the reverse Trendelenburg position and slightly rolled to the left side. She was prepped and draped in the usual sterile fashion. She was given preoperative antibiotics along with subcutaneous heparin. SCDs were utilized. I sara out the incision with our pen and tape measure. After this, we used a knife to develop incision anterior and posteriorly. Electronically Signed By: BONY QUINTANILLA MD 09/14/23 0743 PATIENT NAME: SUYAPA COLÓN OPERATIVE REPORT DATE OF : 62 REPORT #: [id number] PHYSICIAN: BONY QUINTANILLA MD PCP: SELINA LEE MD REPORT IS CONFIDENTIAL AND NOT TO BE RELEASED WITHOUT AUTHORIZATION [facility] [address] [place] [id number] Signed This was extended full-thickness with the help of the needle-tip cautery. After that, we switched over to our blade tip to finish the dissection. We then developed skin flaps posteriorly and anteriorly. We used 2-0 nylon vertical mattress sutures to bring the skin edges together almost completely except for the center. It is only about 4 mm wide by maybe a couple cm in length. We decided we would allow this to heal in secondarily rather than using a full-thickness skin graft. We applied bacitracin ointment to the area and covered it lightly with dry gauze and tape. I did confer with one of my ENT colleagues in that regard. It will take a little longer to heal, but it should be fine. After this, she was awakened from anesthesia, extubated in the OR, and taken to recovery room in stable condition. Bony Quintanilla MD [facility] [place]/MODL /[id number] cc: MD Selina Barclay MD Copies: BONY QUINTANILLA MD ~ Electronically Signed By: BONY QUINTANILLA MD 09/14/23 0743 PATIENT NAME: SUYAPA COLÓN OPERATIVE REPORT DATE OF : 62 REPORT #: [id number] PHYSICIAN: BONY QUINTANILLA MD PCP: SELINA LEE MD REPORT IS CONFIDENTIAL AND NOT TO BE RELEASED WITHOUT AUTHORIZATION
--- NOTE | 2023-09-15 11:44 | PATH ---
[facility] [address] [place], [place] [address] Signed SPECIMEN(S): A RIGHT GNOSTICIST SPECIMEN SOURCE: A. RIGHT GNOSTICIST CLINICAL HISTORY: Skin lesion Excise right druze skin lesion. FINAL PATHOLOGIC DIAGNOSIS: Skin, right druze, excision: - Basal cell carcinoma, nodular type - Distance to closest peripheral margin: 1 mm, multifocal - Distance to closest deep margin: 3 mm - Depth of invasion: Tumor invades reticular dermis - Perineural invasion: Not identified BRP MICROSCOPIC EXAMINATION: Histologic sections of all submitted blocks are examined by light microscopy. These findings, together with the gross examination, support the pathologic diagnosis. GROSS DESCRIPTION: The specimen, labeled and designated "[place], right druze," is received in formalin and consists of irregular-shaped skin tissue fragment that measures 4.2 x 1.6 x 0.6 cm. The skin surface shows irregular-shaped, pink-flynn, focally congested nodules that measure 2.2 x 1.4 cm. The nodule abuts surgical margins. Specimen is oriented: Double stitch-inferior, short stitch-superior, long stitch-posterior. They are arbitrarily designated as a double stitch-6 o'clock, short stitch-12 o'clock, long stitch-9 o'clock. Specimen is inked: 12-6 o'clock-blue, 6-12 o'clock-green. Specimen is serially sectioned and entirely and sequentially submitted from 12-6 o'clock. Cassette Summary: (A1-A2) 12 o'clock half (A3-A4) 6 o'clock half JS (under the direct supervision of a pathologist) The Gross Description was prepared using a voice recognition system. The report was reviewed for accuracy; however, sound-alike word errors, addition and/or deletions may occur. If there is any PATIENT NAME: FANG COLÓN PATHOLOGY DATE OF : 62 REPORT #: [id number] PHYSICIAN: TIMOTHY PATHOLOGY PCP: JOSE LEE MD REPORT IS CONFIDENTIAL AND NOT TO BE RELEASED WITHOUT AUTHORIZATION [facility] [address] [place], [place] [address] Signed question about this report, please contact Client Services. ADDITIONAL NOTES: Immunohistochemical and/or in situ hybridization studies if performed in this case included appropriate positive controls that reacted as expected. This test was developed and its performance characteristics determined by [facility]. It has not been cleared or approved by the U.S. Food and Drug Administration. The FDA has determined that such clearance or approval is not necessary. This test is used for clinical purposes. It should not be regarded as investigational or for research. [facility] is certified under the Clinical Laboratory Improvement Amendments of 1988 (CLIA) as qualified to perform high complexity clinical laboratory testing. PERFORMING LABORATORY: Technical component was performed by [facility], [address] [place] [id number] (CLIA# [id number]). Professional interpretation was performed by [facility], [address] [place] [address] (CLIA#:[id number]). Diagnostician: Berhane Cormier MD Pathologist Electronically Signed 09/15/2023 Copies: ~ PATIENT NAME: AFNG COLÓN PATHOLOGY DATE OF : 62 REPORT #: [id number] PHYSICIAN: TIMOTHY PATHOLOGY PCP: JOSE LEE MD REPORT IS CONFIDENTIAL AND NOT TO BE RELEASED WITHOUT AUTHORIZATION
== END 2023-09-13 12:00 | disposition home or self-care (01) ==
LOC: DS 06:55
PROVIDERS: ATTEND Colon & Rectal Surgery
PROC: 0HB1XZZ Excision of Face Skin, External Approach (ICD-10-PCS; principal; 2023-09-13 08:15)
DX: C44.319 Basal cell carcinoma of skin of other parts of face (principal); I10 Essential (primary) hypertension; F43.10 Post-traumatic stress disorder, unspecified; G40.909 Epilepsy, unspecified, not intractable, without status epilepticus; J45.909 Unspecified asthma, uncomplicated; Z79.899 Other long term (current) drug therapy; Z88.5 Allergy status to narcotic agent; Z88.8 Allergy status to other drugs, medicaments and biological substances; Z88.0 Allergy status to penicillin
CPT/HCPCS: 00300; J0131; J0690; J1100; J1644; J2001; J2405; J2704; J3010; J7121

== ENCOUNTER 2024-04-01 12:09 | Emergency (ER) | payer OTHER ==
[~2024-04-01] VITALS: Ht 167.6 cm; Wt 87.3 kg
[~2024-04-01 12:09] MED LIST changes: +AMLODIPINE BESY10 MG PO
[2024-04-01 13:12] VITALS: BP 170/82
== END 2024-04-01 13:14 | disposition home or self-care (01) ==
LOC: ED 12:09
DX: R56.9 Unspecified convulsions (principal); I10 Essential (primary) hypertension; J45.909 Unspecified asthma, uncomplicated; Z88.0 Allergy status to penicillin; Z88.2 Allergy status to sulfonamides; Z88.8 Allergy status to other drugs, medicaments and biological substances; Z88.5 Allergy status to narcotic agent
CPT/HCPCS: 99283

== ENCOUNTER 2024-04-04 13:19 | Emergency (ER) | payer OTHER ==
[~2024-04-04] VITALS: Ht 167.6 cm; Wt 83.3 kg
[2024-04-04 13:59] VITALS: BP 156/94
== END 2024-04-04 13:59 | disposition home or self-care (01) ==
LOC: ED 13:19
DX: S62.336A Displaced fracture of neck of fifth metacarpal bone, right hand, initial encounter for closed fracture (principal); S62.396A Other fracture of fifth metacarpal bone, right hand, initial encounter for closed fracture; W19.XXXA Unspecified fall, initial encounter; G40.909 Epilepsy, unspecified, not intractable, without status epilepticus; J45.909 Unspecified asthma, uncomplicated; I10 Essential (primary) hypertension; Z88.0 Allergy status to penicillin; Z88.8 Allergy status to other drugs, medicaments and biological substances; Z88.2 Allergy status to sulfonamides; Z88.5 Allergy status to narcotic agent; Z91.048 Other nonmedicinal substance allergy status
CPT/HCPCS: 29125; 99283-25

== ENCOUNTER 2024-04-24 19:08 | Emergency (ER) | payer OTHER ==
[~2024-04-24] VITALS: Ht 167.6 cm; Wt 84.7 kg
[2024-04-24 20:11] LABS: BASOPHILS 0.5 % (0-2); EOSINOPHILS 2.1 % (0-6); HEMOGLOBIN 13.3 g/dL (12.0-18.0); LYMPHOCYTES 35.4 % (24-44); MCH 28.8 (27-36); MCHC 34.2 g/dl (30-36); MCV 84.2 fl (81-99); MONOCYTES 6.7 % (0-12); NEUTROPHILS 55.3 % (39-80); PLATELET COUNT 257 K/uL (140-440); RBC 4.63 M/ul (4.3-5.7); RDW 13.7 (10.5-15.0)
[2024-04-24 20:26] LABS: ALBUMIN 3.5 g/dL (3.4-5.0); ALBUMIN/GLOBULIN RATIO 0.97 (1.1-2.4); ANION GAP 10.1 (7-21); BILIRUBIN, TOTAL 0.3 ng/dL (0.2-1.0); CALCIUM 8.5 mg/dL (8.5-10.1); CREATININE, SERUM 0.9 mg/dL (0.55-1.02); POTASSIUM 3.1 mmol/L (3.5-5.1); PROTEIN, TOTAL 7.1 g/dL (6.4-8.2)
[2024-04-24 21:53] LABS: BILIRUBIN, URINE NEGATIVE (negative); BLOOD/HGB, URINE TRACE-I (Negative); KETONE, URINE NEGATIVE (Negative); LEUK ESTERASE, URINE SMALL (negative); NITRITE, URINE NEGATIVE (negative)
[2024-04-24 21:59] LABS: EPITHELIAL CELLS, URINE SQUAMOUS 3+ /lpf (0-1+)
[2024-04-24 22:00] LABS: BACTERIA, URINE RARE /hpf (negative); CASTS, URINE NONE SEEN \\lpf; COLLECTION TYPE, URINE CLEAN CATCH; CRYSTALS, URINE NONE SEEN (0-1+); WHITE BLOOD CELLS, URINE 21-40 /HPF (0-5)
[2024-04-24] MEDS ORDERED: ENALAPRILAT DIHYDRATE 1.25 MG/ML VIAL IV ONE (22:00)
[2024-04-24 22:01] LABS: REFLEX CULTURE, URINE No (No)
[2024-04-24] MEDS ORDERED: hydrALAZINE HCL 20 MG/ML VIAL IM ONE (22:30)
[2024-04-24] MEDS ORDERED: LISINOPRIL10 MG PO (23:24)
[2024-04-24 23:42] VITALS: BP 198/94
== END 2024-04-24 23:40 | disposition home or self-care (01) ==
LOC: ED 19:08
PROVIDERS: Family Medicine
DX: I10 Essential (primary) hypertension (principal); J45.909 Unspecified asthma, uncomplicated; Z88.0 Allergy status to penicillin; Z88.1 Allergy status to other antibiotic agents; Z88.2 Allergy status to sulfonamides; Z88.8 Allergy status to other drugs, medicaments and biological substances; Z91.048 Other nonmedicinal substance allergy status; Z88.5 Allergy status to narcotic agent
CPT/HCPCS: 36415; 80053; 81001; 83735; 85025; 96372; 99284-25; J0360

== ENCOUNTER 2024-06-26 17:49 | Emergency (ER) | payer OTHER ==
[~2024-06-26] VITALS: Ht 167.6 cm; Wt 90.2 kg
[2024-06-26 18:23] LABS: BASOPHILS 1.3 % (0-2); EOSINOPHILS 2.8 % (0-6); HEMATOCRIT 40.4 % (35.0-50.0); HEMOGLOBIN 13.7 g/dL (12.0-18.0); LYMPHOCYTES 24.9 % (24-44); MCV 85.3 fl (81-99); MONOCYTES 6.2 % (0-12); NEUTROPHILS 64.8 % (39-80); PLATELET COUNT 285 K/uL (140-440); RBC 4.74 M/ul (4.3-5.7); RDW 13.8 (10.5-15.0)
[2024-06-26 18:29] LABS: ALBUMIN 3.5 g/dL (3.4-5.0); ALBUMIN/GLOBULIN RATIO 0.85 (1.1-2.4); ALCOHOL, MEDICAL <3 ng/dL (<3); ALKALINE PHOSPHATASE 132 U/L (46-116); ALT (SGPT) 15 U/L (14-59); ANION GAP 13.2 (7-21); AST (SGOT) 13 U/L (15-37); BILIRUBIN, TOTAL 0.3 ng/dL (0.2-1.0); CALCIUM 8.6 mg/dL (8.5-10.1); CARBON DIOXIDE 28 mmol/L (21-32); CHLORIDE 103 mmol/L (98-107); CREATININE, SERUM 0.86 mg/dL (0.55-1.02); GLOMERULAR FILTRATION RATE,EST 76 mL/min (>60); POTASSIUM 3.2 mmol/L (3.5-5.1); PROTEIN, TOTAL 7.6 g/dL (6.4-8.2); UREA NITROGEN 8 mg/dL (7-18)
[2024-06-26 18:32] LABS: BILIRUBIN, URINE NEGATIVE (negative); BLOOD/HGB, URINE SMALL (Negative); KETONE, URINE NEGATIVE (Negative); LEUK ESTERASE, URINE MODERATE (negative); NITRITE, URINE NEGATIVE (negative)
[2024-06-26 18:46] LABS: BACTERIA, URINE 1+ /hpf (negative); CASTS, URINE NONE SEEN \\lpf; CRYSTALS, URINE NONE SEEN (0-1+); EPITHELIAL CELLS, URINE SQUAMOUS 3+ /lpf (0-1+); WHITE BLOOD CELLS, URINE 21-40 /HPF (0-5)
[2024-06-26 18:47] LABS: COLLECTION TYPE, URINE CLEAN CATCH; REFLEX CULTURE, URINE No (No)
[2024-06-26 19:01] LABS: AMPHETAMINES, URINE NEGATIVE (NEGATIVE); BARBITURATES, URINE NEGATIVE (NEGATIVE); BENZODIAZEPINE, URINE NEGATIVE (NEGATIVE); BUPRENORPHINE, URINE NEGATIVE (NEGATIVE); CANNABINOID, URINE NEGATIVE (NEGATIVE); COCAINE, URINE NEGATIVE (NEGATIVE); ECSTASY, URINE NEGATIVE (NEGATIVE); FENTANYL, URINE NEGATIVE (NEGATIVE); METHADONE, URINE NEGATIVE (NEGATIVE); OPIATES, URINE NEGATIVE (NEGATIVE); OXYCODONE, URINE NEGATIVE (NEGATIVE); PHENCYCLIDINE, URINE NEGATIVE (NEGATIVE)
[2024-06-26] MEDS ORDERED: CEPHALEXIN MONOHYDRATE 500 MG HOME.PACK PO ONE (19:45)
[2024-06-26] MEDS ORDERED: CEPHALEXIN500 M1 PO (19:47)
[2024-06-26 20:00] VITALS: BP 147/84
--- NOTE | 2024-06-27 19:18 | EKG ---
[facility] [address] [facility] [place], [place] [address] Signed Normal sinus rhythm Normal ECG When compared with ECG of 23-JAN-2024 11:38, No significant change was found Confirmed by Melony Hatch MD ([id number]) on 06/27/2024 7:18:18 PM Electronically Signed By: MELONY HATCH MD 06/27/241917 PATIENT NAME: FANG COLÓN Electrocardiogram DATE OF : 62 PHYSICIAN: MELONY HATCH MD REPORT #: [id number] REPORT IS CONFIDENTIAL AND NOT TO BE RELEASED WITHOUT AUTHORIZATION
== END 2024-06-26 20:00 | disposition home or self-care (01) ==
LOC: ED 17:49
PROVIDERS: Emergency Medicine
DX: G40.909 Epilepsy, unspecified, not intractable, without status epilepticus (principal); I10 Essential (primary) hypertension; N39.0 Urinary tract infection, site not specified; J45.909 Unspecified asthma, uncomplicated; Z88.0 Allergy status to penicillin; Z88.8 Allergy status to other drugs, medicaments and biological substances; Z88.2 Allergy status to sulfonamides; Z88.7 Allergy status to serum and vaccine; Z88.5 Allergy status to narcotic agent; Z91.048 Other nonmedicinal substance allergy status
CPT/HCPCS: 36415; 80053; 80307; 81001; 84484; 85025; 93005; 93010; 99284; A9270; G0480

== ENCOUNTER 2024-07-31 19:02 | Emergency (ER) | payer OTHER ==
[~2024-07-31] VITALS: Ht 167.6 cm; Wt 88.0 kg
[~2024-07-31 19:02] MED LIST changes: +CEPHALEXIN500 M1 PO
[2024-07-31 20:37] LABS: BASOPHILS 0.4 % (0-2); EOSINOPHILS 1.9 % (0-6); HEMATOCRIT 39.8 % (35.0-50.0); HEMOGLOBIN 13.8 g/dL (12.0-18.0); LYMPHOCYTES 19.9 % (24-44); MCH 29.4 (27-36); MCHC 34.8 g/dl (30-36); MCV 84.5 fl (81-99); MONOCYTES 5.7 % (0-12); NEUTROPHILS 72.1 % (39-80); PLATELET COUNT 289 K/uL (140-440); RBC 4.71 M/ul (4.3-5.7); RDW 13.8 (10.5-15.0)
[2024-07-31 20:57] LABS: ALBUMIN 3.5 g/dL (3.4-5.0); ALBUMIN/GLOBULIN RATIO 0.81 (1.1-2.4); ANION GAP 14.6 (7-21); BILIRUBIN, TOTAL 0.3 ng/dL (0.2-1.0); BUN/CREATININE RATIO 9.75 (6.0-28.6); CALCIUM 8.7 mg/dL (8.5-10.1); CREATININE, SERUM 0.82 mg/dL (0.55-1.02); MAGNESIUM 2.2 mg/dL (1.8-2.4); POTASSIUM 3.6 mmol/L (3.5-5.1); PROTEIN, TOTAL 7.8 g/dL (6.4-8.2)
[2024-07-31] MEDS ORDERED: LISINOPRIL10 MG PO (21:25)
[2024-07-31 21:44] LABS: BILIRUBIN, URINE NEGATIVE (negative); BLOOD/HGB, URINE SMALL (Negative); KETONE, URINE NEGATIVE (Negative); LEUK ESTERASE, URINE MODERATE (negative); NITRITE, URINE NEGATIVE (negative)
[2024-07-31 21:51] LABS: BACTERIA, URINE RARE /hpf (negative); CASTS, URINE NONE SEEN \\lpf; COLLECTION TYPE, URINE CLEAN CATCH; CRYSTALS, URINE NONE SEEN (0-1+); EPITHELIAL CELLS, URINE SQUAMOUS 2+ /lpf (0-1+); REFLEX CULTURE, URINE No (No)
[2024-07-31 22:56] VITALS: BP 158/92
--- NOTE | 2024-07-31 23:06 | EKG ---
[facility] [address] [place] [address] Signed Normal sinus rhythm Inferior infarct , age undetermined Abnormal ECG When compared with ECG of 26-JUN-2024 18:59, Inferior infarct is now present (seen previously) Confirmed by Molly Escobar MD () on 07/31/2024 11:06:00 PM Electronically Signed By: MOLLY ESCOBAR MD 07/31/24 2306 PATIENT NAME: FANG COLÓN Electrocardiogram DATE OF : 62 PHYSICIAN: MOLLY ESCOBAR MD REPORT #: [id number] REPORT IS CONFIDENTIAL AND NOT TO BE RELEASED WITHOUT AUTHORIZATION
== END 2024-07-31 22:56 | disposition home or self-care (01) ==
LOC: ED 19:02
PROVIDERS: Family Medicine
DX: R56.9 Unspecified convulsions (principal); J45.909 Unspecified asthma, uncomplicated; I10 Essential (primary) hypertension; Z88.0 Allergy status to penicillin; Z88.2 Allergy status to sulfonamides; Z88.1 Allergy status to other antibiotic agents; Z88.8 Allergy status to other drugs, medicaments and biological substances; Z91.048 Other nonmedicinal substance allergy status; Z88.5 Allergy status to narcotic agent; Z79.899 Other long term (current) drug therapy
CPT/HCPCS: 36415; 73030; 80053; 81001; 83735; 84484; 85025; 93005; 93010; 99284

== ENCOUNTER 2024-09-16 15:49 | Emergency (ER) | payer OTHER ==
[~2024-09-16] VITALS: Ht 167.6 cm; Wt 88.9 kg
[2024-09-16] MEDS ORDERED: NORVASC5 MG PO (16:03)
[2024-09-16 16:21] LABS: BASOPHILS 1.1 % (0-2); HEMOGLOBIN 14.1 g/dL (12.0-18.0); LYMPHOCYTES 36.2 % (24-44); MCH 28.7 (27-36); MCHC 33.6 g/dl (30-36); MCV 85.2 fl (81-99); MONOCYTES 6.4 % (0-12); NEUTROPHILS 53.3 % (39-80); PLATELET COUNT 259 K/uL (140-440); RBC 4.92 M/ul (4.3-5.7); RDW 13.2 (10.5-15.0)
[2024-09-16 16:36] LABS: ALBUMIN 3.4 g/dL (3.4-5.0); ALBUMIN/GLOBULIN RATIO 0.87 (1.1-2.4); ALCOHOL, MEDICAL <3 ng/dL (<3); ALKALINE PHOSPHATASE 125 U/L (46-116); ALT (SGPT) 17 U/L (14-59); ANION GAP 10.3 (7-21); AST (SGOT) 16 U/L (15-37); BILIRUBIN, TOTAL 0.4 ng/dL (0.2-1.0); BUN/CREATININE RATIO 11.76 (6.0-28.6); CARBON DIOXIDE 30 mmol/L (21-32); CHLORIDE 104 mmol/L (98-107); CREATININE, SERUM 1.02 mg/dL (0.55-1.02); GLOMERULAR FILTRATION RATE,EST 62 mL/min (>60); POTASSIUM 3.3 mmol/L (3.5-5.1); PROTEIN, TOTAL 7.3 g/dL (6.4-8.2); UREA NITROGEN 12 mg/dL (7-18)
[2024-09-16 17:48] LABS: BILIRUBIN, URINE NEGATIVE (negative); BLOOD/HGB, URINE TRACE-L (Negative); KETONE, URINE NEGATIVE (Negative); LEUK ESTERASE, URINE MODERATE (negative); NITRITE, URINE NEGATIVE (negative)
[2024-09-16 18:00] LABS: BACTERIA, URINE NONE SEEN /hpf (negative); CASTS, URINE NONE SEEN \\lpf; CRYSTALS, URINE NONE SEEN (0-1+); EPITHELIAL CELLS, URINE SQUAMOUS 3+ /lpf (0-1+)
[2024-09-16 18:01] LABS: COLLECTION TYPE, URINE CLEAN CATCH; REFLEX CULTURE, URINE No (No)
[2024-09-16 18:04] LABS: AMPHETAMINES, URINE NEGATIVE (NEGATIVE); BARBITURATES, URINE NEGATIVE (NEGATIVE); BENZODIAZEPINE, URINE NEGATIVE (NEGATIVE); BUPRENORPHINE, URINE NEGATIVE (NEGATIVE); CANNABINOID, URINE NEGATIVE (NEGATIVE); COCAINE, URINE NEGATIVE (NEGATIVE); ECSTASY, URINE NEGATIVE (NEGATIVE); FENTANYL, URINE NEGATIVE (NEGATIVE); METHADONE, URINE NEGATIVE (NEGATIVE); OPIATES, URINE NEGATIVE (NEGATIVE); OXYCODONE, URINE NEGATIVE (NEGATIVE); PHENCYCLIDINE, URINE NEGATIVE (NEGATIVE)
[2024-09-16 19:35] VITALS: BP 161/74
--- NOTE | 2024-09-18 21:14 | EKG ---
[facility] [address] [facility] [place] [address] Signed Normal sinus rhythm Inferior infarct (cited on or before 31-JUL-2024) Abnormal ECG When compared with ECG of 31-JUL-2024 20:11, No significant change was found Confirmed by Christ Mccarthy DO ([id number]) on 09/18/2024 9:14:19 PM Electronically Signed By: CHRIST MCCARTHY DO 09/18/[id number] PATIENT NAME: FANG COLÓN Electrocardiogram DATE OF : 62 PHYSICIAN: CHRIST MCCARTHY DO REPORT #: [id number] REPORT IS CONFIDENTIAL AND NOT TO BE RELEASED WITHOUT AUTHORIZATION
== END 2024-09-16 19:43 | disposition home or self-care (01) ==
LOC: ED 15:49
PROVIDERS: Emergency Medicine
DX: R42 Dizziness and giddiness (principal); I10 Essential (primary) hypertension; J45.909 Unspecified asthma, uncomplicated; Z88.0 Allergy status to penicillin; Z88.2 Allergy status to sulfonamides; Z88.8 Allergy status to other drugs, medicaments and biological substances; Z88.5 Allergy status to narcotic agent; Z91.048 Other nonmedicinal substance allergy status; Z79.899 Other long term (current) drug therapy
CPT/HCPCS: 36415; 80053; 80307; 81001; 85025; 93005; 93010; 99284; G0480

== ENCOUNTER 2024-11-14 05:56 | Emergency (ER) | payer OTHER ==
[~2024-11-14] VITALS: Ht 167.6 cm; Wt 83.0 kg
[2024-11-14] MEDS ORDERED: HYDROCODONE/ACETA 5/325 TAB PO ONE (06:15)
[2024-11-14 07:27] VITALS: BP 151/81
== END 2024-11-14 07:27 | disposition home or self-care (01) ==
LOC: ED 05:56
DX: S63.92XA Sprain of unspecified part of left wrist and hand, initial encounter (principal); I10 Essential (primary) hypertension; J45.909 Unspecified asthma, uncomplicated; F43.10 Post-traumatic stress disorder, unspecified; W01.0XXA Fall on same level from slipping, tripping and stumbling without subsequent striking against object, initial encounter; Z79.899 Other long term (current) drug therapy; Z88.0 Allergy status to penicillin; Z88.2 Allergy status to sulfonamides; Z88.5 Allergy status to narcotic agent; Z88.8 Allergy status to other drugs, medicaments and biological substances; Z91.048 Other nonmedicinal substance allergy status
CPT/HCPCS: 73130; 99283